=== PATIENT | female | born 1965 | race Two or more races ===

== ENCOUNTER 2016-11-30 19:42 | Inpatient (IN) | END 2016-12-06 16:20 | DRG 871 | DX: A41.9 Sepsis, unspecified organism (principal); J18.9 Pneumonia, unspecified organism; J96.01 Acute respiratory failure with hypoxia; I10 Essential (primary) hypertension; E11.9 Type 2 diabetes mellitus without complications; D50.9 Iron deficiency anemia, unspecified; I25.10 Atherosclerotic heart disease of native coronary artery without angina pectoris; F41.9 Anxiety disorder, unspecified; E87.5 Hyperkalemia; I50.9 Heart failure, unspecified; Z79.4 Long term (current) use of insulin ==

== ENCOUNTER 2016-12-09 11:16 | Inpatient (IN) | payer OTHER, MEDICAID ==
[~2016-12-09] VITALS: Ht 142.2 cm; Wt 90.9 kg
[~2016-12-09 11:16] MED LIST: ACET-2047 PO; ALBU2.5V3 NEB; ALPR0.254 PO; AMLO-147 PO; ASCO500C7 PO; ASPI81TA3 PO; BUDE6HFA INHALATION; CARV25TA79 PO; CHLO473M7 MM; CHOL20002 PO; CYAN100080 PO; DULR PR; FER325 PO; FLEETPED PR; IPRA3AMP INHALATION; LACTINEX PO; LANT3I SC; LOV40I SC; MONT10TA24 PO; MULT-105 PO; PANT40TA4 PO; POLY17PO6 PO; PROT946L PO; SENN-53 PO; TUBE5VIA3 ID; VALS80TA2 PO
--- NOTE | 2016-12-09 11:41 | RADRPT ---
PROCEDURE: CT brain without contrast CLINICAL INDICATION: Code stroke, altered mental status, aphasia, right gaze preference TECHNIQUE: CT of the brain without contrast performed on a multidetector CT scanner, with multiplan ar reformats. One or more of the following dose reduction techniques were used: Automated exposure control, adjustment in mA and / or kV according to patient size, use of iterative reconstructive anjel hnique. CTDIvol = 45 mGy; DLP = 720 mGy-cm. COMPARISON: None available FINDINGS: No acute intracranial hemorrhage is identified. No extra-axial fluid collection is seen. There is no mass effect. No midline shift is identified. Ventricles and sulci are within normal limits for size and configuration. There is mild patchy hypodensity in the bilateral parietal deep - subcortical white matter. No larg e territorial infarct is identified. Rader-white differentiation is otherwise grossly preserved. Th ere is a small focal calcification in the parasagittal left parietal lobe measuring up to 7 mm. Atherosclerotic calcifications of the proximal intracranial arteries are noted. Osseous structures are unremarkable. Mastoid air cells and imaged paranasal sinuses grossly clear. IMPRESSION: 1. No acute intracranial hemorrhage, or large territorial infarct. 2. Mild patchy hypodensity in the bilateral parietal white matter. Posterior reversible encephalop athy may have this appearance. Follow up with MRI is advised. 3. Small cerebral calcification which may be post infectious - inflammatory, sequela of neurocystic ercosis. Call report: Findings were called to Dr. Moore at 11:36 a.m. on 12/09/2016. RPTAT: VV .Kush Anand MD, Date Time Electronically viewed and signed by .Kush Anand MD, MD on 12/09/2016 11:40 .O/
[2016-12-09 11:42] LABS: EOSINOPHILS % 0.1 % (0.0-7.0)
[2016-12-09 11:43] LABS: POTASSIUM 3.9 mmol/L (3.5-5.1)
[2016-12-09 11:44] LABS: INR 0.97; PROTIME 12.9 Sec (12.2-14.2)
[2016-12-09 11:45] LABS: CREATININE 0.61 mg/dl (0.44-1.00)
[2016-12-09 11:46] LABS: CALCIUM 9.8 mg/dl (8.4-10.2)
[2016-12-09 11:48] LABS: HEMOGLOBIN 13.6 g/dl (12.0-16.0); LYMPHOCYTES % 7.7 % (15.0-51.0); MEAN CORPUSCULAR HEMOGLOBIN 26.9 pg (29.0-33.0); MEAN CORPUSCULAR HGB CONC 32.4 g/dl (32.0-37.0); MEAN CORPUSCULAR VOLUME 83.1 fl (82.0-101.0); MEAN PLATELET VOLUME 11.2 fl (7.4-10.4); MONOCYTE # 0.5 10^3/ul (0.3-0.9); MONOCYTES % 3.9 % (0.0-11.0); NEUTROPHIL # 11.8 10^3/ul (1.6-7.5); NEUTROPHILS % 88.3 % (39.0-77.0); PLATELET COUNT 169 10^3/UL (140-440); RED BLOOD COUNT 5.05 10^6/ul (4.20-5.40); RED CELL DISTRIBUTION WIDTH 25.3 % (11.5-14.5); UNCORRECTED WBC 13.4 10^3/ul (4.8-10.8); WHITE BLOOD COUNT 13.4 10^3/ul (4.8-10.8)
[2016-12-09 11:50] LABS: CONDITION 1; LH ANALYZER COMMENTS 1; SUSPECT 1
[2016-12-09] MEDS ORDERED: ADV25050 INHALATION (11:51)
[2016-12-09] MEDS ORDERED: ACET650S9 PR (11:51)
[2016-12-09] MEDS ORDERED: SODIUM CHLORIDE 0.9% 1L BAG IV* STA (11:52)
[2016-12-09] MEDS ORDERED: AZTREONAM 1 GM/NS (PMX) 50 ML IVPB STA (11:52)
[2016-12-09] MEDS ORDERED: VANCOMYCIN 1 GM (PMX) 250 ML IVPB STA (11:52)
[2016-12-09] MEDS ORDERED: AZTR2VIA2 IJ (11:53)
[2016-12-09] MEDS ORDERED: IPRA3AMP INHALATION (11:55)
[2016-12-09] MEDS ORDERED: CLON-379 PO (11:55)
[2016-12-09 11:57] LABS: TROPONIN-I 0.015 ng/ml (0.00-0.12)
[2016-12-09] MEDS ORDERED: HYDR-3671 PO (11:57)
--- NOTE | 2016-12-09 11:57 | RADRPT ---
PROCEDURE: XR Chest. CLINICAL INDICATION: chest pain, CVA TECHNIQUE: Single frontal view of the chest was obtained COMPARISON: 12/05/2016 FINDINGS: The study is limited due to rotation and patient positioning. There is mild cardiomegaly. There ar e patchy bilateral upper lobe and lower lobe infiltrates. There is no evidence of pneumothorax. RPTAT: AA IMPRESSION: Limited study. Patchy bilateral upper lobe and lower lobe infiltrates, not significantly changed. .Juan Ramon Guerrero MD, MD Date Time Electronically viewed and signed by .Juan Ramon Guerrero MD, MD on 12/09/2016 11:57 .S/
[2016-12-09] MEDS ORDERED: MAGN400T27 PO (11:58)
[2016-12-09] MEDS ORDERED: NIT4 SL (11:58)
[2016-12-09] MEDS ORDERED: ASPIRIN 300 MG SUPP PR ONE (12:00)
[2016-12-09] MEDS ORDERED: ALTEPLASE 100 MG INJ IV* ONE (12:00)
[2016-12-09] MEDS ORDERED: ALTEPLASE (tPA) 1 MG/ML BOLUS SYG IV* ONE (12:00)
[2016-12-09] MEDS ORDERED: SOD CHLORIDE 0.9% 50 ML IV ONE (12:00)
[2016-12-09] MEDS ORDERED: NOVO3I SC (12:03)
[2016-12-09] MEDS ORDERED: INSULIN LISPRO 100 UNIT/ML VIAL SC STA (12:04)
[2016-12-09] MEDS ORDERED: PRED20TA PO ×3 (12:11→12:16)
[2016-12-09 12:13] LABS: AADO2 Arterial 65.2 mmHg (7.0-24.0); Allen Test ACCEPTAB; Arterial Base Excess 4.9 mmol/L (-3.0-3); Arterial COHb 0.6 % (0.0-3.0); Arterial Fraction of Oxyhgb 92.4 % (93.0-99.0); Arterial MetHb 0.2 % (0.0-1.5); Arterial Total Hemglobin 14.4 g/dl (12.0-18.0); MODE NASAL CANNULA
[2016-12-09] MEDS ORDERED: PRED10TA PO ×2 (12:14→12:16)
[2016-12-09] MEDS ORDERED: PRED5 PO (12:17)
[2016-12-09] MEDS ORDERED: ONDA4TAB8 PO (12:18)
[2016-12-09] MEDS ORDERED: VANC1VIA2 IV (12:20)
[2016-12-09] MEDS ORDERED: ACETAMINOPHEN 325 MG TAB PO PRN (12:30)
[2016-12-09] MEDS ORDERED: ONDANSETRON 4 MG INJ IV PRN ×2 (12:30→16:00)
[2016-12-09 12:40] LABS: LACTIC ACID 1.5 mmol/L (0.5-2.2)
[2016-12-09 12:42] LABS: AMMONIA < 9 umol/l (9-30)
--- NOTE | 2016-12-09 14:05 | STROKE ---
Date/Time of Note Date/Time of Note DATE: 12/09/16 TIME: 12:08 Patient Information General Patient location: emergency Arrival Date Age 51 Gender female Weight 90.91 kg est by 2 RNs Vital Signs Vital Signs Vital Signs Date Time Temp Pulse Resp B/P Pulse Ox O2 Delivery O2 Flow Rate FiO2 12/09/16 11:27 Nasal Cannula 2 12/09/16 11:16 98.9 82 18 107/69 99 Patient History Current Medications Allergies: Coded Allergies: Penicillins (Verified Allergy, Unknown, 12/09/16) atenolol (Verified Allergy, Unknown, 12/09/16) prochlorperazine (Verified Allergy, Unknown, 12/09/16) sulfamethoxazole (Verified Allergy, Unknown, 12/09/16) trimethoprim (Verified Allergy, Unknown, 12/09/16) Labs Hematology Labs Hematology Test 12/09/16 11:21 Basophils # 0.010^3/ul (0.0-0.1) Basophils % 0.0% (0.0-2.0) Blood Morphology Comment Eosinophils # 0.010^3/ul (0.0-0.5) Eosinophils % 0.1% (0.0-7.0) Hematocrit 42.0% (37.0-47.0) Hemoglobin 13.6g/dl (12.0-16.0) Lymphocytes # 1.010^3/ul (0.8-2.9) Lymphocytes % 7.7% (15.0-51.0) Mean Corpuscular Hemoglobin 26.9pg (29.0-33.0) Mean Corpuscular Hemoglobin Concent 32.4g/dl (32.0-37.0) Mean Corpuscular Volume 83.1fl (82.0-101.0) Mean Platelet Volume 11.2fl (7.4-10.4) Monocytes # 0.510^3/ul (0.3-0.9) Monocytes % 3.9% (0.0-11.0) Neutrophils # 11.810^3/ul (1.6-7.5) Neutrophils % 88.3% (39.0-77.0) Nucleated Red Blood Cells # 0.010^3/ul (0.0-0.0) Nucleated Red Blood Cells % 0.0/100WBC (0.0-0.0) Platelet Count 01310^3/UL (140-440) Red Blood Count 5.0510^6/ul (4.20-5.40) Red Cell Distribution Width 25.3% (11.5-14.5) White Blood Count 13.410^3/ul (4.8-10.8) Chemistry Labs Chemistry Test 12/09/16 11:21 Anion Gap 16 (8-16) Blood Urea Nitrogen 35mg/dl (7-20) Calcium Level 9.8mg/dl (8.4-10.2) Carbon Dioxide Level 33mmol/L (21-31) Chloride Level 95mmol/L (97-110) Creatinine 0.61mg/dl (0.44-1.00) Glucose Level 418mg/dl (70-220) Hemoglobin A1c 6.7% (0-5.9) Potassium Level 3.9mmol/L (3.5-5.1) Sodium Level 140mmol/L (135-144) Troponin I 0.015ng/ml (0.00-0.12) Coagulation Labs: Coagulation Test 12/09/16 11:21 INR International Normalized Ratio 0.97 Prothrombin Time 12.9Sec (12.2-14.2) Prothrombin Time Ratio 1.0 History & Physical Patient History Notes Pt Hx Reviewed History of Present Illness 51yo F who lives in a longterm, was observed to have sudden onset gaze deviation to the right with altered mental status. Patient was last normal at 10:30am Review of Systems All Other Systems: Reviewed and Negative NIH Stroke Scale NIH Stroke Scale 1A - Level of Conciousness: 1 - Not Alert but [id number] LOC Questions: 2 - Answers no questions2 - Best Gaze: 1 - Partial Gaze palsy3 - Visual: 0 - No visual loss4 - Facial Palsy: 0 - No visual loss5A - Motor Arm - Left: 2 - Some effort to [id number] - Motor Arm - Right: 2 - Some effort to [id number] - Motor Leg - Left: 4 - No [id number] - Motor Leg - Right: 4 - No movement7 - Limb Ataxia: 0 - Absent8 - Sensory: 0 - Normal9 - Best Language: 3 - Mute or global aphasiaDysarthria: 2 - [id number] - Extinction and inattentio: 0 - No abnormalityTotal Score: 16 Date/Time Recorded DATE: 12/09/16 TIME: 12:08 Submitted By Eduardo Damon t-PA Imaging Review Imaging Reviewed: Yes Date/Time Imaging Reviewed DATE: 12/09/16 TIME: 12:08 Imaging Findings No acute changes t-PA Administration Recommendation: No Weight 90.91 kg est by 2 RNs Recommedation submitted by Eduardo Damon Reason t-PA not Recommended Not stroke Recommendations Impression Diagnosis metabolic encephalopathy Recommendation 51yo F presents with acute onset altered mental status changes and right gaze deviation. Neurological exam is notable for right gaze preference at the beginning of the exam but eyes moving to the left by the end of the exam, equal and purposeful movement of bilateral upper extremities, no movement in bilateral lower extremities, and equal response to pain in bilateral upper extremities with no response to pain in bilateral lower extremities. I suspect patient has a metabolic encephalopathy vs seizure. I recommend workup to include MRI Brain with and without gadolinium, EEG, and metabolic/infectious workup. Diagnostic Labs: Lipid Proile Hgb A1C CMP CBC w/Diff Coags Urinaysis Therapy: Physical Therapy Speech Therapy Misc. Recommendations: Bedside Swallow Evaluation Pnumatic Compression Devices Stroke Education Smoking Education EDUARDO DAMON Dec 09, 2016 14:05
[2016-12-09 14:50] LABS: ADD UMIC YES; URINE BILIRUBIN (Dip) NEGATIVE (NEGATIVE); URINE BLOOD (Dip) TRACE (NEGATIVE); URINE KETONES (Dip) NEGATIVE (NEGATIVE); URINE LEUKOCYTE ESTERASE (Dip) NEGATIVE (NEGATIVE); URINE NITRITE (Dip) NEGATIVE (NEGATIVE); URINE TOTAL PROTEIN (Dip) 4+ (NEGATIVE); URINE UROBILINOGEN (Dip) 0.2 E.U./dL (0.1-1.0)
[2016-12-09 15:06] LABS: BARBITURATES Negative (NEGATIVE)
[2016-12-09 15:23] LABS: URINE COLOR YELLOW (YELLOW)
[2016-12-09 15:26] LABS: BACTERIA,URINE FEW; TRANSITIONAL EPI CELLS,URINE MODERATE
[2016-12-09 15:30] LABS: BENZODIAZEPINES Negative (NEGATIVE); CANNABINOIDS Negative (NEGATIVE); COCAINE Negative (NEGATIVE); OPIATES Negative (NEGATIVE)
[2016-12-09] MEDS ORDERED: ACETAMINOPHEN 650 MG SUPP PR PRN (16:00)
[2016-12-09] MEDS ORDERED: NACL 0.9% 3 ML SYG IV SCH (16:00)
[2016-12-09] MEDS ORDERED: ALBUTEROL/IPRATROPIUM (NEB) 3 ML AMP HHN PRN (16:00)
[2016-12-09] MEDS ORDERED: ALPRAZOLAM 0.25 MG TAB PO PRN (16:00)
[2016-12-09] MEDS ORDERED: morphine 2 MG INJ IV PRN (16:00)
[2016-12-09] MEDS ORDERED: BISACODYL 10 MG SUPP PR PRN (16:00)
[2016-12-09] MEDS ORDERED: ONDANSETRON 4 MG TAB PO PRN (16:00)
[2016-12-09] MEDS ORDERED: NITROGLYCERIN (SL) 0.4 MG TAB SL PRN (16:00)
[2016-12-09] MEDS ORDERED: NA PHOSPHATE/BIPHOS 66.6 ML ENEMA PR PRN (16:00)
[2016-12-09] MEDS ORDERED: VANCOMYCIN IV PER PHARMACY XX SCH (16:00)
--- NOTE | 2016-12-09 16:30 | ERA ---
ER Documentation Chief Complaint Date/Time DATE: 12/09/16 TIME: 16:24 Chief Complaint ALOC @ 1055, last known [id number] HPI Patient is a 51-year-old female with DVT, anemia, diabetes, and high blood pressure who presents with altered mental status. Please note the history and physical exam is limited as the patient is currently a phasic. The patient was a code stroke from the field at 11:14 AM. She was last seen normal at 10:30 AM and is usually awake alert and oriented 3. Her sugar was high by paramedics. She has a right-sided gaze preference. I cannot obtain a history otherwise. ROS All systems reviewed and are negative except as per history of present illness. Medications Home Meds Active Scripts Valsartan* (Diovan*) 80 Mg Tablet, 40 MG PO BID for 30 Days, TAB HOLD IF SBP<110 OR HR<60 Prov:LEXY HOOKER MD 12/06/16 Insulin Glargine* (Lantus*) 100 Unit/Ml Soln, 15 UNIT SC QHS, #1 VIAL Prov:LEXY HOOKER MD 12/06/16 Carvedilol* (Carvedilol*) 25 Mg Tablet, 12.5 MG PO BID, #60 TAB HOLD IF SBP<110 OR HR<60 Prov:LEXY HOOKER MD 12/06/16 Reported Medications Vancomycin HCl (Vancomycin HCl) 1 Gm Vial, 1 GM IV EVERY 48 HOURS, VIAL STOP 12-13-16 12/09/16 Ondansetron Hcl* (Zofran*) 4 Mg Tablet, 4 MG PO Q6H Y for NAUSEA AND OR VOMITING , TAB 12/09/16 Prednisone* (Prednisone*) 5 Mg Tab, 5 MG PO DAILY, TAB START 12-27-16 STOP 12-30-16 12/09/16 Prednisone* (Prednisone*) 20 Mg Tab, 20 MG PO DAILY, TAB START 12-21 STOP 12-23-16 12/09/16 Prednisone* (Prednisone*) 10 Mg Tab, 10 MG PO DAILY, TAB START 12-24-16 STOP 01-02-17 12/09/16 Prednisone* (Prednisone*) 20 Mg Tab, 40 MG PO DAILY, TAB START 12-13-16 STOP 12-18-16 12/09/16 Prednisone* (Prednisone*) 10 Mg Tab, 30 MG PO DAILY, TAB START 12-18-16 STOP 12-21-16 12/09/16 Prednisone* (Prednisone*) 20 Mg Tab, 40 MG PO BID, TAB STARTED 12-06-16 FOR 5 DAYS 12-12-16 12/09/16 Insulin Aspart* (Novolog Insulin Pen*) 100 Unit/Ml Soln, 0 SC WITH BREAKFAST, EA 151-200 = 2 UNITS 201-250 = 4 UNITS 251-300 = 6 UNITS 301-350 = 8 UNITS 351-400 =10 UNITS ABOVE 400 GIVE 12 UNITS AND CALL MD TO BE GIVEN WITH MEALS AND BEDTIME 12/09/16 Nitroglycerin* (Nitrostat*) 0.4 Mg Tab.subl, 0.4 MG SL Q5MIN Y for CHEST PAIN, BOTTLE 12/09/16 Magnesium Oxide* (Mag-Oxide*) 400 Mg Tablet, 400 MG PO BID, TAB FOR 7 DAYS STOP 12-15-16 12/09/16 Hydralazine Hcl* (Hydralazine Hcl*) 25 Mg Tab, 25 MG PO Q8 Y for ELEVATED BLOOD PRESSURE, #90 TAB GIVE 25MG IF SBP BELOW 120 12/09/16 Ipratropium-Albuterol (Ipratropium-Albuterol) 0.5-3 Mg/3 Ml Ampul.neb, 3 ML INHALATION Q6 Y for WHEEZING AND SOB, #30 VIAL 12/09/16 Clonidine Hcl* (Clonidine Hcl*) 0.1 Mg Tab, 0.1 MG PO Q8 Y for ELEVATED BLOOD PRESSURE, TAB SBP ABOVE 160 12/09/16 Aztreonam (AZTREONAM) 2 Gm Vial, 2 GM IJ Q12 Y for PNA, VIAL STARTED 12-06-16 STOP 12-13-16 12/09/16 Salmeterol Xinaf/Fluticasone* (Advair*) 250-50 Diskus Inhaler, 1 INH INHALATION BID, #1 INHALER 12/09/16 Acetaminophen* (Acephen*) 650 Mg Supp.rect, 650 MG MD Q4H Y for PAIN AND OR ELEVATED TEMP, SUPP.RECT 12/09/16 Ascorbic Acid* (Vitamin C*) 500 Mg Capsule.sa, 500 MG PO DAILY, CAP 11/30/16 Sennosides* (Senna Lax*) 8.6 Mg Tablet, 2 TAB PO QHS, TAB 11/30/16 Pantoprazole* (Pantoprazole*) 40 Mg Tablet.dr, 40 MG PO AC BREAKFAST, TAB 11/30/16 Protein Supplement (Promod) 946 Ml Liquid, 30 ML PO BID 11/30/16 Multivitamin with Minerals (Multivitamins with Minerals) 1 Each Tablet, 1 EACH PO DAILY, TAB 11/30/16 Montelukast Sodium* (Montelukast Sodium*) 10 Mg Tablet, 10 MG PO DAILY, #30 TAB 11/30/16 Polyethylene Glycol* (Miralax*) 17 Gm Powd.pack, 17 GM PO DAILY, #30 PACKET 11/30/16 Sod Phosphate/Sod Biphosphate* (Fleet* Enema Pediatric) 66.6 Ml Soln, 66.6 ML MD Q72H Y for CONSTIPATION, ENEMA 11/30/16 Ferrous Sulfate* (Ferrous Sulfate*) 325 Mg Tabec, 325 MG PO BID, TAB 11/30/16 Enoxaparin Sodium* (Enoxaparin Sodium*) 40 Mg/0.4 Ml Syringe, 40 MG SC DAILY, SYR 11/30/16 Ipratropium-Albuterol (Ipratropium-Albuterol) 0.5-3 Mg/3 Ml Ampul.neb, 3 ML INHALATION Q2H, #30 VIAL Q2H FOR WHEEZING AND Q4H FOR SOB 11/30/16 Bisacodyl* (Bisacodyl*) 10 Mg Supp, 10 MG MD Q48H Y for PRN, SUPP 11/30/16 Cyanocobalamin* (Vitamin B-12*) 1,000 Mcg Tablet.sa, 1000 MCG PO DAILY, TAB 11/30/16 Aspirin* (Aspirin* Chew) 81 Mg Tab.chew, 81 MG PO DAILY, TAB.CHEW 11/30/16 Amlodipine Besylate* (Amlodipine Besylate*) 10 Mg Tablet, 10 MG PO DAILY, #30 TAB HOLD IF SBP<110 OR HR<60 11/30/16 Alprazolam* (Alprazolam*) 0.25 Mg Tablet, 0.25 MG PO TID Y for ANXIETY, TAB 11/30/16 Discontinued Reported Medications Tuberculin,Purif.prot.deriv. (Tubersol) 5 Tub Unit/0.1 Ml Vial, 5 TUB ID QHS, VIAL 11/30/16 Budesonide-Formoterol Fumarate* (Symbicort*) 160-4.5 Hfa.aer.ad, 2 PUFF INHALATION BID, #1 EACH 11/30/16 Lactobacillus Acidophilus* (Lactinex*) 1 Tab Chew, 1 TAB PO TID, TAB 11/30/16 Cholecalciferol (Vitamin D3) (Vitamin D-3) 2,000 Unit Tablet, 2000 UNIT PO DAILY , TAB 11/30/16 Chlorhexidine Gluconate (Paroex) 473 Ml Mouthwash, 15 ML MM BID, BOTTLE 11/30/16 Albuterol Sulfate* (Albuterol Sulfate* Neb) 0.083%-3 Ml Neb, 1.25 MG NEB Q4H Y for WHEEZING AND SOB, #30 VIAL 11/30/16 Acetaminophen* (Acetaminophen*) 650 Mg Tablet, 650 MG PO Q6H Y for PAIN LEVEL 1- 10, #30 TAB 11/30/16 Insulin Human Regular (Novolin-R U-100) 100 Unit/Ml Soln, 0 SC SLIDING SCALE AC , EA 151-200=2UNIT, <70=ORANGE JUICE OR 1MG IM GLUCAGON AND CALL MD; 201-250=4UNITS, 251-300=6UNITS, 301-350=8UNITS, 351-400=10UNITS,>400=12UNITS AND CALL MD 11/30/16 Hydralazine Hcl* (Hydralazine Hcl*) 50 Mg Tab, 50 MG PO BID, #60 TAB HOLD IF SBP<110 OR HR<60 11/30/16 Allergies Allergies: Coded Allergies: Penicillins (Verified Allergy, Unknown, 12/09/16) atenolol (Verified Allergy, Unknown, 12/09/16) prochlorperazine (Verified Allergy, Unknown, 12/09/16) sulfamethoxazole (Verified Allergy, Unknown, 12/09/16) trimethoprim (Verified Allergy, Unknown, 12/09/16) PMhx/Soc Medical and Surgical Hx: Unable to obtain History of Surgery: Yes Anesthesia Reaction: No Hx Neurological Disorder: No Hx Respiratory Disorders: No Hx Cardiac Disorders: Yes Hx Psychiatric Problems: No Hx Miscellaneous Medical Probl: No Hx Alcohol Use: No Hx Substance Use: No Hx Tobacco Use: No Smoking Status: Unknown if ever smoked FmHx Unable to obtain Physical Exam Vitals Vital Signs Date Time Temp Pulse Resp B/P Pulse Ox O2 Delivery O2 Flow Rate FiO2 12/09/16 14:49 71 100 30 12/09/16 14:26 70 20 155/105 98 BIPAP 12/09/16 14:03 98.9 94 16 168/84 99 BIPAP 12/09/16 12:33 86 98 30 12/09/16 11:27 Nasal Cannula 2 12/09/16 11:16 98.9 82 18 107/69 99 Physical Exam Const: Altered Head: Atraumatic Eyes: Right-sided gaze preference ENT: Normal External Ears, Nose and Mouth. Neck: Full range of motion..~ No meningismus. Resp: Decreased breath sounds bilaterally Cardio: Regular rate and rhythm, no murmurs Abd: Soft, non tender, non distended. Normal bowel sounds Skin: Pale Back: Scoliosis Ext: Paralysis of the lower extremities Neur: Awake but right-sided gaze preference, aphasia, withdrawing to pain of the bilateral upper extremities, bilateral lower extremity paralysis Result Diagram: 12/09/16 1121 12/09/16 1121 Results 24 hrs Laboratory Tests Test 12/09/16 11:21 12/09/16 11:52 12/09/16 14:25 12/09/16 14:35 Anion Gap 16 Basophils # 0.010^3/ul Basophils % 0.0% Blood Morphology Comment Blood Urea Nitrogen 35mg/dl Calcium Level 9.8mg/dl Carbon Dioxide Level 33mmol/L Chloride Level 95mmol/L Creatinine 0.61mg/dl Eosinophils # 0.010^3/ul Eosinophils % 0.1% Glucose Level 418mg/dl Hematocrit 42.0% Hemoglobin 13.6g/dl Hemoglobin A1c 6.7% Lymphocytes # 1.010^3/ul Lymphocytes % 7.7% Mean Corpuscular Hemoglobin 26.9pg Mean Corpuscular Hemoglobin Concent 32.4g/dl Mean Corpuscular Volume 83.1fl Mean Platelet Volume 11.2fl Monocytes # 0.510^3/ul Monocytes % 3.9% Neutrophils # 11.810^3/ul Neutrophils % 88.3% Nucleated Red Blood Cells # 0.010^3/ul Nucleated Red Blood Cells % 0.0/100WBC Platelet Count 24742^3/UL Potassium Level 3.9mmol/L Red Blood Count 5.0510^6/ul Red Cell Distribution Width 25.3% Sodium Level 140mmol/L Troponin I 0.015ng/ml White Blood Count 13.410^3/ul Arterial Blood HCO3 33.0mmol/L Arterial Blood Base Excess 4.9mmol/L Arterial Blood Oxygen Saturation 93.1mmHG Kulwant Test ACCEPTAB Arterial Blood Gas Puncture Site Left Radial Ammonia < 9umol/l Arterial Blood Carboxyhemoglobin 0.6% Arterial Blood Date Drawn 12/09/2016 12:05:27 PM Arterial Blood Methemoglobin 0.2% Arterial Blood pCO2 (Temp correct) 64.1mmhg Arterial Blood pH (Temp corrected) 7.329 Arterial Blood pO2 (Temp corrected) 73.4mmHG Blood Gas A-a O2 Differential 65.2mmHg Blood Gas Modality NASAL CANNULA Blood Gas Notified Time 12/09/2016 12:13:11 PM Blood Gas Notified Whom AbimaelGEODETIC SURVEYOR Blood Gas Specimen Source Blood arterial Blood Gas Temperature 37.0C FiO2 30.0% Lactic Acid Level 1.5mmol/L Oxyhemoglobin Percent 92.4% Total Hemoglobin 14.4g/dl Urine Amorphous Urates MODERATE Urine Amphetamines Screen Negative Urine Bacteria FEW Urine Barbiturates Negative Urine Benzodiazepines Screen Negative Urine Bilirubin NEGATIVE Urine Cannabinoids Negative Urine Clarity SLIGHTLY CLOUDY Urine Cocaine Screen Negative Urine Color YELLOW Urine Glucose 0.5%% Urine Hemoglobin TRACE Urine Ketones NEGATIVE Urine Leukocyte Esterase NEGATIVE Urine Microscopic RBC 5-10/HPF Urine Microscopic WBC 10-25/HPF Urine Nitrite NEGATIVE Urine Opiates Screen Negative Urine Specific Omro 1.020 Urine Total Protein 4+ Urine Transitional Epithelial Cells MODERATE Urine Urobilinogen 0.2 E.U./dL Urine pH 6.0 Bedside Glucose 130mg/dL Test 12/09/16 15:21 Activated Partial Thromboplast Time 20.0Sec INR International Normalized Ratio 0.97 Prothrombin Time 12.9Sec Prothrombin Time Ratio 1.0 Current Medications Medications (Trade) Dose Ordered Sig/Marge Route PRN Reason Start Time Stop Time Status Last Admin Dose Admin Alteplase, Recombinant (Activase) 8.2 mg BOLUS OVER 1 MIN ONCE IV* 12/09/16 12:00 12/09/16 12:00 DC Alteplase, Recombinant 73.6 mg 73.6 mg ISCHEMIC STROKE ONCE IV* 12/09/16 12:00 12/09/16 12:00 DC Sodium Chloride (NS) 50 ml @ 0 mls/hr FLUSH AFTER TPA ONCE IV 12/09/16 12:00 12/09/16 12:01 DC Aspirin (Aspirin) 300 mg ONCE ONCE MD 12/09/16 12:00 12/09/16 12:01 DC 12/09/16 12:17 Sodium Chloride 2820 ml 2,820 ml BOLUS OVER 2 HOURS STAT IV* 12/09/16 11:52 12/09/16 11:55 DC 12/09/16 12:10 Aztreonam 50 ml @ 100 mls/hr ONCE STAT IVPB 12/09/16 11:52 12/09/16 12:21 DC 12/09/16 12:22 Vancomycin HCl (Vancocin) 250 ml @ 125 mls/hr ONCE STAT IVPB 12/09/16 11:52 12/09/16 13:51 DC 12/09/16 13:38 Insulin Human Lispro (Humalog) 10 unit ONCE STAT SC 12/09/16 12:04 12/09/16 12:05 DC 12/09/16 12:17 Ondansetron HCl (Zofran Inj) 4 mg ER BRIDGE PRN IV NAUSEA AND/OR VOMITING 12/09/16 12:30 12/10/16 12:29 Acetaminophen 650 mg 650 mg ER BRIDGE PRN PO MILD PAIN/FEVER 12/09/16 12:30 12/10/16 12:29 Sodium Chloride (1/2 NS) 1,000 ml @ 20 mls/hr Q24H IV 12/09/16 15:56 IV Flush (NS 3 ml) 3 ml PER PROTOCOL IV 12/09/16 16:00 Ondansetron HCl (Zofran Inj) 4 mg Q6H PRN IV NAUSEA AND/OR VOMITING 12/09/16 16:00 Morphine Sulfate (morphine) 2 mg Q4H PRN IV SEVERE PAIN LEVEL 7-10 12/09/16 16:00 Enoxaparin Sodium (Lovenox) 40 mg DAILY SC 12/10/16 09:00 Vancomycin HCl VANCOMYCIN PER PHARMACY PER PROTOCOL XX 12/09/16 16:00 UNV Piperacillin Sod/ Tazobactam Sod (Zosyn 3.375gm/ 100 ml (Pmx)) 100 ml @ 200 mls/hr Q8 IVPB 12/09/16 22:00 Acetaminophen (Tylenol Supp) 650 mg Q4H PRN MD PAIN AND OR ELEVATED TEMP 12/09/16 16:00 Alprazolam (Xanax) 0.25 mg TID PRN PO ANXIETY 12/09/16 16:00 Amlodipine Besylate (Norvasc) 10 mg DAILY PO 12/10/16 09:00 UNV Ascorbic Acid (Vitamin C) 500 mg DAILY PO 12/10/16 09:00 UNV Aspirin (Aspirin) 81 mg DAILY PO 12/10/16 09:00 Bisacodyl (Dulcolax Supp) 10 mg Q48H PRN MD PRN 12/09/16 16:00 Carvedilol (Coreg) 12.5 mg BID PO 12/09/16 21:00 UNV Clonidine (Catapres) 0.1 mg Q8 PRN PO ELEVATED BLOOD PRESSURE 12/09/16 16:00 Cyanocobalamin (Vitamin B12) 1,000 mcg DAILY PO 12/10/16 09:00 UNV Enoxaparin Sodium (Lovenox) 40 mg DAILY SC 12/10/16 09:00 Ferrous Sulfate (Ferrous Sulfate (Ec)) 325 mg BID PO 12/09/16 21:00 UNV Hydralazine HCl (Apresoline) 25 mg Q8 PRN PO ELEVATED BLOOD PRESSURE 12/09/16 16:00 UNV Insulin Glargine (Lantus) 15 unit QHS SC 12/09/16 21:00 UNV Magnesium Oxide (Mag-Ox 400) 400 mg BID PO 12/09/16 21:00 UNV Montelukast Sodium (Singulair) 10 mg DAILY PO 12/10/16 09:00 UNV Nitroglycerin (Nitroglycerin (Sl Tab) 0.4 Mg) 1 tab [id number] PRN SL CHEST PAIN 12/09/16 16:00 Ondansetron HCl (Zofran Tab) 4 mg Q6H PRN PO NAUSEA AND/OR VOMITING 12/09/16 16:00 Pantoprazole (Protonix Tab) 40 mg AC BREAKFAST PO 12/10/16 07:00 UNV Polyethylene Glycol (Miralax) 17 gm DAILY PO 12/10/16 09:00 UNV Prednisone (Prednisone) 5 mg DAILY PO 12/10/16 09:00 UNV Salmeterol Xinafoate/ Fluticasone (Advair 250/50 Diskus) 1 inh BID INH 12/09/16 21:00 UNV Senna (Senokot) 2 tab QHS PO 12/09/16 21:00 UNV Sodium Biphosphate/ Sodium Phosphate (Fleet Enema Pediatric) 66.6 ml Q72H PRN MD CONSTIPATION 12/09/16 16:00 Valsartan (Diovan) 40 mg BID PO 12/09/16 21:00 UNV Miscellaneous Information 1 each DAILY PO 12/10/16 09:00 UNV Miscellaneous Information 30 ml BID PO 12/09/16 21:00 UNV Albuterol/ Ipratropium (Duoneb) 3 ml Q4H RESP THERAPY PRN HHN SHORTNESS OF BREATH 12/09/16 16:00 Insulin Aspart (Novolog Insulin Pen) NOVOLOG *MILD* ALGORI... Q4 SC 12/09/16 17:00 UNV Miscellaneous Information (* Miscellaneous Pharmacy Order) HYPOGLYCEMIA PROTOCOL w... ONCE ONCE XX 12/09/16 16:00 12/09/16 16:01 UNV Miscellaneous Information (* Miscellaneous Pharmacy Order) Discontinue Glyburide, Glipizide,... ONCE ONCE XX 12/09/16 16:00 12/09/16 16:01 UNV Miscellaneous Information (* Miscellaneous Pharmacy Order) Discontinue all previ... ONCE ONCE XX 12/09/16 16:00 12/09/16 16:01 UNV Procedures/MDM CT head negative for acute stroke per radiology. EKG read by me: Rate/Rhythm: Regular rate and rhythm at a rate of 81 Intervals: Normal Impression: No evidence of ischemia or arrhythmia Chest X-ray 1V Interpreted by me: Soft Tissue: No acute abnormalities Bones: Scoliosis Mediastinum/Cardiac Silhouette/Lungs: Bilateral pneumonia Admit MDM: Patient's infectious symptoms have not stabilized and the patient is at risk of rapid decompensation. The patient will be admitted for careful hydration, antibiotic therapy, and infectious source control. Severe Sepsis criteria: Infectious source: Pneumonia End organ damage indicated by: Respiratory failure Sepsis Management: Time of recognition of sepsis: 11:57 Within 3 hours of recognition: Blood cultures x 2 before broad-spectrum antibiotics: Yes 30 ml/kg NS bolus Completed Initial lactate 1.5 Repeat lactate pending Time of recognition of septic shock: No septic shock Septic Shock Assessment: Any lactic acid > 4.0 No Persistent hypotension (SBP < 90 or 40 mmHg drop, MAP < 65) despite 30 mL/kg IV fluid bolus No Volume Re-assessment for Septic Shock (post 30 ml/kg bolus): No septic shock at this time Persistent Hypotension Treatment: Comfort care No Central line Not Required Vasopressor started Not required I considered further perfusion assessment with CVP measurement, SCVO2, bedside ultrasound volume assessment, passive leg raise, trial of further fluid bolus. And proceeded with 30 ml/kg fluid bolus of NSS, broad spectrum antibiotics, and admission. The patient was initially a potential stroke and TPA candidate. The tele-neurologist did a stroke evaluation and felt this may have been seizure as she is now moving and no longer has the persistent right-sided gaze preference. The patient failed a swallow evaluation and had an NIH stroke scale of 22. The patient was given aspirin per rectum. Now I am concerned about sepsis given the pneumonia on x-ray. Accepting Care Team Current data and ongoing care discussed. Admitting Physician: Dr. Cabrera from the panel team as the patient was recently admitted to the panel team and has [employer] Health insurance adviser(s): Tele-neurology Outstanding Data: Culture results and repeat lactic acid Critical Care: Critical care time 35 minutes excluding all billable procedures Emergent fluid management while maintaining close respiratory support. Provision of immediate and broad-spectrum antibiotic therapy. Simultaneous assessment for possible sources in order to direct targeted therapy. Consideration for invasive and chemical support to prevent cardiopulmonary collapse. Departure Diagnosis: Primary Impression: Severe sepsis Additional Impressions: PNA (pneumonia) Qualified Code: J18.9 - Pneumonia of both lungs due to infectious organism, unspecified part of lung Altered level of consciousness Leukocytosis Qualified Code: D72.829 - Leukocytosis, unspecified type Hyperglycemia Condition: Serious ROSSY SOUSA MD Dec 09, 2016 16:30
[2016-12-09] MEDS: INSULIN ASPART [NOVOLOG] 3 ML PEN SC SCH ×2 (17:00→21:27)
[2016-12-09] MEDS ORDERED: GLUCOSE GEL 15 GRAM TUBE PO PRN ×2 (17:30)
[2016-12-09] MEDS ORDERED: GLUCAGON 1 MG INJ IM PRN (17:30)
[2016-12-09] MEDS ORDERED: GLUCOSE GEL 15 GRAM TUBE BUCCAL PRN (17:30)
[2016-12-09] MEDS ORDERED: DEXTROSE 50% 50 ML SYRINGE IV PRN ×2 (17:30)
--- NOTE | 2016-12-09 18:35 | HP ---
DATE OF ADMISSION: 12/09/2016 CHIEF COMPLAINT: Altered mental status. HISTORY OF PRESENT ILLNESS: The patient is a 51-year-old female with a history of spina bifida with debility who resides with at [facility]. The patient has history of hypertension, asthma and pulmonary fibrosis as well as sepsis and coronary artery disease. Patient was recently hospitalized here several days ago. During that hospitalization, patient presented with acute respiratory failu re, was intubated. Patient also had sepsis from pneumonia. She was diagnosed with pulmonary fibros is. Patient now presents with altered mental status. It is unclear if patient had a stroke versus seizure. The patient was evaluated by teleneurology in the ED and during the evaluation, the patireece t's mentation did improve was felt that she is not a candidate for TPA as it is felt that patient di d not have a stroke. There is a question of whether or not patient had a seizure, but there are no reports of any witnessed seizures at the long term. The patient is now alert. She is somewhat o f a poor historian but she states that she feels as though she is back to her baseline. She has no complaints of any weakness at this time and denies any chest pain, shortness of breath, nausea, vomi ting. She states that she just felt somewhat confused earlier and is not clear why and does not rem ember much from early this morning. PAST MEDICAL HISTORY: 1. Debility secondary to report of spina bifida. The patient has been mostly bedbound for many yea rs now resides in a longterm facility. 2. Pulmonary fibrosis with a recent history of respiratory failure likely from pulmonary fibrosis a nd pneumonia. 3. Iron deficiency anemia. 4. Coronary artery disease. 5. Diabetes type 2. 6. Anxiety. HOME MEDICATIONS: 1. Tylenol. 2. Xanax. 3. Norvasc. 4. Vitamin C. 5. Aspirin. 6. Aztreonam. 7. Dulcolax. 8. Coreg. 9. Clonidine. 10. Vitamin B12 and Lovenox. 11. Ferrous sulfate. 12. Hydralazine. 13. Insulin. 14. DuoNeb. 15. Magnesium. 16. Protonix. 15. Prednisone. 16. Diovan. ALLERGIES: PENICILLINS, ATENOLOL, BACTRIM. FAMILY HISTORY: Noncontributory. SOCIAL HISTORY: Patient resides at longterm facility. No reports of any alcohol, tobacco, d rug use. REVIEW OF SYSTEMS: A 12-point review of systems negative except that discussed in HPI. PHYSICAL EXAMINATION: VITAL SIGNS: Temperature is 98.9, pulse 71, respiratory rate 20, blood pressure 165/105, oxygen sat uration 100% on BiPAP. GENERAL: No acute distress, alert. HEENT: Normocephalic, atraumatic. LUNGS: Clear to auscultation. CARDIOVASCULAR: Regular rate and rhythm. ABDOMEN: Nondistended, nontender, soft. EXTREMITIES: No clubbing, cyanosis, or edema. LABORATORIES: White count 15.4, hemoglobin 13.6, platelets 169. Chemistry within normal limits exc ept for chloride of 95, carbon dioxide 33, BUN 35, glucose 418. A1c is 6.7. INR is 0.97. U-tox is negative. UA shows only 0.5% glucose and 4+ total protein. DIAGNOSTICS: Chest x-ray shows patchy bilateral upper lobe and lower lobe infiltrates not significa ntly changed. Brain CT shows no acute hemorrhage or large infarct and mild patchy hyperdensity in t he bilateral parietal white matter, posterior reversible encephalopathy may have this appearance. 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 ASSESSMENT AND PLAN: 1. Acute encephalopathy now resolved. The patient has been evaluated by teleneurology and it is fe lt that the patient did have cerebrovascular accident and hence is not a candidate for tissue plasm inogen activator. 2. Per neurology, the patient has metabolic encephalopathy versus seizure. Recommendations for MRI brain, EEG, an infectious workup which will be done. 3. Chronic respiratory failure secondary to pulmonary fibrosis, recent acute exacerbation of pneumo oseas. Patient's x-ray continues to show findings of pneumonia. Unclear if this is a residual findin g from previous infection versus persistent infection. We will cover with IV antibiotics. 4. Hypertension. Continue home medication. 5. Coronary artery disease. Continue home medication. 6. Diabetes. Continue home insulin. 7. History of debility secondary to spina bifida. The patient has been bedbound for many years. 8. Prophylaxis, Lovenox. Dictated By: KYLE GROVER MD BS/NTS Conf#: [id number] DID#: [id number]
[2016-12-09 18:53] VITALS: TEMP 99.2
[2016-12-09 20:00] VITALS: BP 156/73; PULSE 72; RESP 20
[2016-12-09 20:07] VITALS: PULSE 78
[2016-12-09] MEDS ORDERED: INSULIN GLARGINE [LANtus] 3 ML PEN SC SCH (21:00)
[2016-12-09] MEDS ORDERED: NON-FORMULARY/PATIENT OWN MED (Protein Supplement (Promod) 30 ML) PO SCH (21:00)
[2016-12-09] MEDS: SALMETEROL/FLUTICASONE 250/50 INHA INH SCH (21:20)
[2016-12-09] MEDS: SENNA TAB PO SCH (21:21)
[2016-12-09] MEDS: FERROUS SULFATE (EC) 325 MG TAB PO SCH (21:21)
[2016-12-09] MEDS: VALSARTAN 80 MG TAB PO SCH (21:22)
[2016-12-09] MEDS: MAGNESIUM OXIDE 400 MG TAB PO SCH (21:41)
[2016-12-09] MEDS: SOD CHLORIDE 0.45% 1,000 ML IV SCH (21:42)
[2016-12-09] MEDS ORDERED: PIPER-TAZO 3.375 GM IV (PMX) 100 ML IVPB SCH (22:00)
[2016-12-09 22:14] VITALS: BP 156/73; RESP 20
--- NOTE | 2016-12-09 22:19 | CONS ---
Date/Time of Note Date/Time of Note DATE: 12/09/16 TIME: 22:10 Assessment/Plan Assessment/Plan Chief Complaint/Hosp Course I reviewed Pt's records and made preliminary recommendations on EMR. I will formally evaluate Pt and write a full consultation note. assessment/impression - recurrent HCAP - underlying pulmonary fibrosis - MS change on admission, etiology either CVA or seizure - spina bifida - DM - CAD - reported allergy to PCN and sulfa recommendations - I will review the results of blood cultures - will request: respiratory culture, influenza screen by EIA and PCR, respiratory virus test by PCR, procalcitonin, cocci serology, legionella antigen , mycoplasma serology - continue IV vancomycin and aztreonam. Will add levofloxacin empirically too I reviewed Pt's records and made preliminary recommendations on EMR. I will formally evaluate Pt and write a full consultation note. Problems: Consultation Date/Type/Reason Admit Date/Time Dec 09, 2016 at 12:26 Date of Consultation: Dec 09, 2016 Type of Consultation: ID Reason for Consultation PNA Referring Provider: ROSSY SOUSA MD Hx of Present Illness This is a 51 yo female SNF resident with h/o spina bifida, DM, asthma and pulmonary fibrosis. Pt was admitted until recently due to hypoxic respiratory failure requiring intubation. Pt was sent to [facility] several days ago. Pt was readmitted today due to MS change. Tele-neurology assessed Pt. her mental status improved gradually. The etiology of her MS change was either seizure or CVA. Pt was noted to have leukocytosis and b/l ground glass opacity on CXR. MEGAN Sanders at [facility] who cares for this Pt contacted Dr. Sousa at ER and requested ID consult by us. I reviewed Pt's records and made preliminary recommendations on EMR. I will formally evaluate Pt and write a full consultation note. Past Surgical History Past Surgical Hx: no surgical history Social History Smoking Status: Unknown if ever smoked Exam/Review of Systems Vital Signs Vitals Vital Signs Date Time Temp Pulse Resp B/P Pulse Ox O2 Delivery O2 Flow Rate FiO2 12/09/16 20:07 78 12/09/16 18:53 99.2 24 157/86 99 Nasal Cannula 12/09/16 17:20 4.0 12/09/16 16:34 30 Results Result Diagram: 12/09/16 1121 12/09/16 1121 Results 24 hrs Laboratory Tests Test 12/09/16 11:21 12/09/16 11:52 12/09/16 14:25 12/09/16 14:35 Anion Gap 16 Basophils # 0.0 Basophils % 0.0 Blood Morphology Comment Blood Urea Nitrogen 35 H Calcium Level 9.8 Carbon Dioxide Level 33 H Chloride Level 95 L Creatinine 0.61 Eosinophils # 0.0 Eosinophils % 0.1 Glucose Level 418 *H Hematocrit 42.0 # Hemoglobin 13.6 # Hemoglobin A1c 6.7 H Lymphocytes # 1.0 Lymphocytes % 7.7 L Mean Corpuscular Hemoglobin 26.9 L Mean Corpuscular Hemoglobin Concent 32.4 Mean Corpuscular Volume 83.1 Mean Platelet Volume 11.2 H Monocytes # 0.5 Monocytes % 3.9 Neutrophils # 11.8 H Neutrophils % 88.3 H Nucleated Red Blood Cells # 0.0 Nucleated Red Blood Cells % 0.0 Platelet Count 169 # Potassium Level 3.9 Red Blood Count 5.05 # Red Cell Distribution Width 25.3 H Sodium Level 140 Troponin I 0.015 White Blood Count 13.4 #H Arterial Blood HCO3 33.0 H Arterial Blood Base Excess 4.9 H Arterial Blood Oxygen Saturation 93.1 L Kulwant Test ACCEPTAB Arterial Blood Gas Puncture Site Left Radial Ammonia < 9 L Arterial Blood Carboxyhemoglobin 0.6 Arterial Blood Date Drawn 12/09/2016 12:05:27 PM Arterial Blood Methemoglobin 0.2 Arterial Blood pCO2 (Temp correct) 64.1 H Arterial Blood pH (Temp corrected) 7.329 L Arterial Blood pO2 (Temp corrected) 73.4 L Blood Gas A-a O2 Differential 65.2 H Blood Gas Modality NASAL CANNULA Blood Gas Notified Time 12/09/2016 12:13:11 PM Blood Gas Notified Whom AbimaelDESKTOP ENGINEER Blood Gas Specimen Source Blood arterial Blood Gas Temperature 37.0 FiO2 30.0 Lactic Acid Level 1.5 Oxyhemoglobin Percent 92.4 L Total Hemoglobin 14.4 Urine Amorphous Urates MODERATE Urine Amphetamines Screen Negative Urine Bacteria FEW Urine Barbiturates Negative Urine Benzodiazepines Screen Negative Urine Bilirubin NEGATIVE Urine Cannabinoids Negative Urine Clarity SLIGHTLY CLOUDY Urine Cocaine Screen Negative Urine Color YELLOW Urine Glucose 0.5% H Urine Hemoglobin TRACE Urine Ketones NEGATIVE Urine Leukocyte Esterase NEGATIVE Urine Microscopic RBC 5-10 Urine Microscopic WBC 10-25 Urine Nitrite NEGATIVE Urine Opiates Screen Negative Urine Specific [place] 1.020 Urine Total Protein 4+ H Urine Transitional Epithelial Cells MODERATE Urine Urobilinogen 0.2 E.U./dL Urine pH 6.0 Bedside Glucose 130 Test 12/09/16 15:21 12/09/16 17:14 12/09/16 21:19 Activated Partial Thromboplast Time 20.0 L INR International Normalized Ratio 0.97 Prothrombin Time 12.9 Prothrombin Time Ratio 1.0 Bedside Glucose 102 187 Medications Medications Current Medications Sodium Chloride (1/2 NS) 1,000 ml @ 20 mls/hr Q24H IV Last administered on 12/09 21:42; Admin Dose 20 MLS/HR; Start 12/09/16 at 15:56 Ondansetron HCl (Zofran Inj) 4 mg Q6H PRN IV NAUSEA AND/OR VOMITING; Start 12/09 at 16:00 Morphine Sulfate (morphine) 2 mg Q4H PRN IV SEVERE PAIN LEVEL 7-10; Start at 16:00 Enoxaparin Sodium (Lovenox) 40 mg DAILY SC ; Start 12/10/16 at 09:00 Acetaminophen (Tylenol Supp) 650 mg Q4H PRN WI PAIN AND OR ELEVATED TEMP; Start 12/09/16 at 16:00 Alprazolam (Xanax) 0.25 mg TID PRN PO ANXIETY; Start 12/09/16 at 16:00 Amlodipine Besylate (Norvasc) 10 mg DAILY PO ; Start 12/10/16 at 09:00 Ascorbic Acid (Vitamin C) 500 mg DAILY PO ; Start 12/10/16 at 09:00 Aspirin (Aspirin) 81 mg DAILY PO ; Start 12/10/16 at 09:00 Bisacodyl (Dulcolax Supp) 10 mg Q48H PRN WI PRN; Start 12/09/16 at 16:00 Carvedilol (Coreg) 12.5 mg BID PO Last administered on 12/09/16 21:23; Admin Dose 12.5 MG; Start 12/09/16 at 21:00 Clonidine (Catapres) 0.1 mg Q8 PRN PO ELEVATED BLOOD PRESSURE Last administered on 12/09/16 17:17; Admin Dose 0.1 MG; Start 12/09/16 at 16:00 Cyanocobalamin (Vitamin B12) 1,000 mcg DAILY PO ; Start 12/10/16 at 09:00 Enoxaparin Sodium (Lovenox) 40 mg DAILY SC ; Start 12/10/16 at 09:00 Ferrous Sulfate (Ferrous Sulfate (Ec)) 325 mg BID PO Last administered on 21:21; Admin Dose 325 MG; Start 12/09/16 at 21:00 Hydralazine HCl (Apresoline) 25 mg Q8H PRN PO SBP ABOVE 170 Last administered on 12/09/16 17:16; Admin Dose 25 MG; Start 12/09/16 at 16:00 Insulin Glargine (Lantus) 15 unit QHS SC Last administered on 12/09/16 21:24; Admin Dose 15 UNIT; Start 12/09/16 at 21:00 Magnesium Oxide (Mag-Ox 400) 400 mg BID PO Last administered on 12/09/16 21:41 ; Admin Dose 400 MG; Start 12/09/16 at 21:00 Montelukast Sodium (Singulair) 10 mg DAILY PO ; Start 12/10/16 at 09:00 Nitroglycerin (Nitroglycerin (Sl Tab) 0.4 Mg) 1 tab [id number] PRN SL CHEST PAIN ; Start 12/09/16 at 16:00 Ondansetron HCl (Zofran Tab) 4 mg Q6H PRN PO NAUSEA AND/OR VOMITING; Start 12/09 at 16:00 Polyethylene Glycol (Miralax) 17 gm DAILY PO ; Start 12/10/16 at 09:00 Prednisone (Prednisone) 5 mg DAILY PO ; Start 12/10/16 at 09:00 Salmeterol Xinafoate/ Fluticasone (Advair 250/50 Diskus) 1 inh BID INH Last administered on 12/09/16 21:20; Admin Dose 1 INH; Start 12/09/16 at 21:00 Senna (Senokot) 2 tab QHS PO Last administered on 12/09/16 21:21; Admin Dose 2 TAB; Start 12/09/16 at 21:00 Sodium Biphosphate/ Sodium Phosphate (Fleet Enema Pediatric) 66.6 ml Q72H PRN WI CONSTIPATION; Start 12/09/16 at 16:00 Valsartan (Diovan) 40 mg BID PO Last administered on 12/09/16 21:22; Admin Dose 40 MG; Start 12/09/16 at 21:00 Multivitamins/ Minerals (Theragran-M) 1 tab DAILY PO ; Start 12/10/16 at 09:00 Insulin Aspart (Novolog Insulin Pen) NOVOLOG *MILD* ALGORI... Q4 SC Last administered on 12/09/16 21:27; Admin Dose 2 UNIT; Start 12/09/16 at 17:00 Miscellaneous Information 1 ea NOTE XX ; Start 12/09/16 at 17:30 Glucose (Glutose) 15 gm Q15M PRN PO DECREASED GLUCOSE; Start 12/09/16 at 17:30 Glucose (Glutose) 22.5 gm Q15M PRN PO DECREASED GLUCOSE; Start 12/09/16 at 17:30 Dextrose (D50w Syringe) 25 ml Q15M PRN IV DECREASED GLUCOSE; Start 12/09/16 at 17:30 Dextrose (D50w Syringe) 50 ml Q15M PRN IV DECREASED GLUCOSE; Start 12/09/16 at 17:30 Glucagon (Glucagen) 1 mg Q15M PRN IM DECREASED GLUCOSE; Start 12/09/16 at 17:30 Glucose 15 gm 15 gm Q15M PRN BUCCAL DECREASED GLUCOSE; Start 12/09/16 at 17:30 Aztreonam 50 ml @ 100 mls/hr Q12 IVPB ; Start 12/09/16 at 21:00 Vancomycin HCl (Vancocin) 250 ml @ 125 mls/hr Q24H IVPB ; Start 12/10/16 at 13: 30 ADAM RAZA M.D. Dec 09, 2016 22:19
[2016-12-09] MEDS: AZTREONAM 1 GM/NS (PMX) 50 ML IVPB SCH (23:33)
[2016-12-10] VITALS (13 sets, daily range): BP systolic 120–170; BP diastolic 59–84; PULSE 43–74; RESP 18–20; Ht 142.2 cm; Wt 90.9 kg
[2016-12-10] MEDS: INSULIN ASPART [NOVOLOG] 3 ML PEN SC SCH ×6 (01:00→21:00)
--- NOTE | 2016-12-10 06:13 | CONS ---
DATE OF ADMISSION: 12/09/2016 DATE OF CONSULTATION: 12/09/2016 TYPE OF CONSULTATION: Pulmonary REASON FOR CONSULTATION: Shortness of breath. Thank you, Dr. Ramirez, for this consultation. HISTORY OF PRESENT ILLNESS: This is a morbidly obese, 51-year-old lady with a history of obstructiv e sleep apnea, recent admission for hypoxemic respiratory failure, came in with altered mental statu s, questionable CODE STROKE. She had stat arterial blood gas performed that demonstrated mild hyper capnia. Upon initiation of noninvasive positive pressure ventilation and patient's mentation has im proved. She is now somewhat more alert. PAST MEDICAL HISTORY: Includes acute on chronic hypercapnic respiratory failure, pulmonary edema, h ypertension, hyperlipidemia, type 2 diabetes, recent pneumonia, questionable pulmonary fibrosis. MEDICATIONS: Per chart. ALLERGIES: NONE. SOCIAL HISTORY: Nonsmoker, no alcohol, no history of drug use. FAMILY HISTORY: Noncontributory. SYSTEMS REVIEW: A 12-point review of systems was negative other than that mentioned above. PHYSICAL EXAMINATION: GENERAL: Morbidly obese lady, awake, alert, oriented, comfortable at rest on BiPAP. VITAL SIGNS: Currently afebrile, pulse is 70, blood pressure 155/100, O2 saturation 96% on FIO2 of 30%. NECK: Supple. No JVD or lymphadenopathy. CARDIAC: S1, S2, no added sounds or murmurs. CHEST: Diminished air entry bilaterally. ABDOMEN: Obese, soft, nontender, no guarding, no rebound. EXTREMITIES: No cyanosis, clubbing, 1+ edema. NEUROLOGIC: Generalized weakness. LABORATORY DATA: White count 13.4, hemoglobin 13.6, platelets 169, glucose 418. BUN 35, creatinine 0.61. ABG: pH 7.32, pCO2 64, pO2 of 73. DIAGNOSTIC DATA: Chest x-ray was reviewed, shows patchy bilateral upper lobe infiltrates, possible underlying pulmonary edema. CT of the brain was performed, showed no acute abnormalities. IMPRESSION AND PLAN: 1. Altered mental status possibly secondary to hypercapnia. 2. Probable obesity hypoventilation syndrome. 3. Questionable acute bronchitis. 4. Likely diastolic dysfunction. 5. History of diabetes. The patient will require: 1. Nocturnal noninvasive positive pressure ventilation. 2. Aspiration precautions. 3. Continue glycemic management. 4. Bronchodilators. 5. Antibiotics. 6. Glycemic management. 7. DVT and GI prophylaxis. Dictated By: SAMANTHA PAGE/ANICETO Conf#: [id number] DID#: [id number]
[2016-12-10 07:11] LABS: POTASSIUM 3.1 mmol/L (3.5-5.1)
[2016-12-10 07:14] LABS: CREATININE 0.6 mg/dl (0.44-1.00); PHOSPHORUS 2.3 mg/dl (2.5-4.9)
[2016-12-10 07:15] LABS: CALCIUM 9.4 mg/dl (8.4-10.2); MAGNESIUM 1.7 mg/dl (1.7-2.5)
[2016-12-10] MEDS: PANTOPRAZOLE (EC) 40 MG TAB PO SCH (07:41)
[2016-12-10 08:21] LABS: WHITE BLOOD COUNT 8.1 10^3/ul (4.8-10.8)
[2016-12-10 08:22] LABS: HEMATOCRIT 34.4 % (37.0-47.0); HEMOGLOBIN 11.1 g/dl (12.0-16.0); MEAN CORPUSCULAR HEMOGLOBIN 26.9 pg (29.0-33.0); MEAN CORPUSCULAR HGB CONC 32.3 g/dl (32.0-37.0); MEAN CORPUSCULAR VOLUME 83.5 fl (82.0-101.0); PLATELET COUNT 164 10^3/UL (140-440); RED BLOOD COUNT 4.12 10^6/ul (4.20-5.40); RED CELL DISTRIBUTION WIDTH 23.4 % (11.5-14.5); UNCORRECTED WBC 8.1 10^3/ul (4.8-10.8)
[2016-12-10 08:23] LABS: BASOPHILS % 0.1 % (0.0-2.0); EOSINOPHILS % 0.6 % (0.0-7.0); LYMPHOCYTES % 24.1 % (15.0-51.0); MONOCYTES % 12.7 % (0.0-11.0)
[2016-12-10] MEDS: CYANOCOBALAMIN 500 MCG TAB PO SCH (08:41)
[2016-12-10] MEDS: ASCORBIC ACID 500 MG TAB PO SCH (08:41)
[2016-12-10] MEDS: POLYETHYLENE GLYCOL 17 GM PACKET PO SCH (08:41)
[2016-12-10] MEDS: ASPIRIN 81 MG TAB PO SCH (08:42)
[2016-12-10] MEDS: FERROUS SULFATE (EC) 325 MG TAB PO SCH ×2 (08:42→21:06)
[2016-12-10] MEDS: MULTIVITAMINS/MINERALS TAB PO SCH (08:42)
[2016-12-10] MEDS: MONTELUKAST 10 MG TAB PO SCH (08:42)
[2016-12-10] MEDS: predniSONE 5 MG TAB PO SCH (08:42)
[2016-12-10] MEDS: MAGNESIUM OXIDE 400 MG TAB PO SCH ×2 (08:42→21:06)
[2016-12-10] MEDS: AMLODIPINE 10 MG TAB PO SCH (08:44)
[2016-12-10] MEDS: ENOXAPARIN 40 MG/0.4 ML SYG SC SCH (08:47)
[2016-12-10] MEDS: VALSARTAN 80 MG TAB PO SCH ×2 (08:53→21:05)
[2016-12-10] MEDS ORDERED: ENOXAPARIN 40 MG/0.4 ML SYG SC SCH (09:00)
--- NOTE | 2016-12-10 09:14 | RADRPT ---
PROCEDURE: XR Chest. CLINICAL INDICATION: Shortness of breath TECHNIQUE: A single portable view of the chest was obtained. COMPARISON: 12/09/2016 FINDINGS: Exam is limited secondary to patient positioning. The cardiomediastinal silhouette is stable. Diffu se pulmonary vascular congestion is noted. Scattered patchy air space disease is once again seen and has not changed significantly. The soft tissues and osseous structures are unremarkable. IMPRESSION: Stable diffuse pulmonary vascular congestion and scattered patchy air space disease. RPTAT: [facility]PN[facility] Physician Sherrie Date Time Electronically viewed and signed by Physician Sherrie on 12/10/2016 09:14 /
[2016-12-10] MEDS ORDERED: POTASSIUM CHLORIDE (SR) 20 MEQ TAB PO SCH (10:00)
--- NOTE | 2016-12-10 10:03 | CONS ---
Date/Time of Note Date/Time of Note DATE: 12/10/16 TIME: 09:54 Assessment/Plan Assessment/Plan Chief Complaint/Hosp Course assessment/impression - influenza B bronchitis - possibly superimposed bacterial PNA - frequent episodes of hypoxic resp failure - underlying pulmonary fibrosis - h/o MS change on admission, etiology hypercapnia from hypoventilation, CVA or seizure - spina bifida - DM - CAD - reported allergy to PCN and sulfa (both causes facial and periorbital swelling ) recommendations - I will review the results of: blood cultures, respiratory virus test by PCR, procalcitonin, cocci serology, legionella antigen, mycoplasma serology - start PO oseltamivir (12/10/2016-) - continue IV vancomycin, aztreonam and levofloaxcin for empiric treatment of superimposed bacterial PNA - place Pt on droplet precautions management d/w Pt, her RN and charge nurse Problems: Consultation Date/Type/Reason Admit Date/Time Dec 09, 2016 at 12:26 Date of Consultation: Dec 10, 2016 Type of Consultation: ID Reason for Consultation HCAP, bronchitis Hx of Present Illness This is a 51 yo female SNF resident with h/o spina bifida, DM, asthma and pulmonary fibrosis. Pt has been admitted at various hospitals this winter season for respiratory failure. most recently Pt was admitted at [facility] due to hypoxic respiratory failure requiring intubation. Pt was sent to [facility] several days ago. Pt was readmitted on 12/09/2016 due to MS change. Tele- neurology assessed Pt. her mental status improved gradually. The etiology of her MS change was thought to be either seizure, CVA or hypercapnea from hypoventilation. Pt was noted to have leukocytosis and b/l ground glass opacity on CXR. SOCIAL SCIENCES RESEARCH SCIENTIST Tommy at [facility] who cares for this Pt contacted Dr. Moore at ER and requested ID consult by us on 12/09/2016. I reviewed Pt's records and made preliminary recommendations on EMR on 12/09/2016. Overnight her nasopharyngeal swab returned positive for influenza B. Pt received seasonal influenza immunization. Constitutional: chills Eyes: no complaints ENT: no complaints Respiratory: cough, sputum, No pleuritic pain, No wheezing Cardiovascular: no complaints Gastrointestinal: no complaints Genitourinary: other (has FC, retains urine) Musculoskeletal: no complaints Skin: no complaints Neurologic: other (spina bifida) Past Medical History Medical History: diabetes Past Surgical History Past Surgical Hx: no surgical history Social History Smoking Status: Never smoker Exam/Review of Systems Vital Signs Vitals Vital Signs Date Time Temp Pulse Resp B/P Pulse Ox O2 Delivery O2 Flow Rate FiO2 12/10/16 08:03 43 12/10/16 07:44 98.0 19 125/59 99 12/10/16 00:00 Room Air 12/09/16 17:20 4.0 12/09/16 16:34 30 Intake and Output 12/09/16 12/09/16 12/10/16 15:00 23:00 07:00 Intake Total 800 ml Balance 800 ml Results Result Diagram: 12/10/16 0540 12/10/16 0540 Results 24 hrs Laboratory Tests Test 12/09/16 11:21 12/09/16 11:52 12/09/16 14:25 12/09/16 14:35 Anion Gap 16 Basophils # 0.0 Basophils % 0.0 Blood Morphology Comment Blood Urea Nitrogen 35 H Calcium Level 9.8 Carbon Dioxide Level 33 H Chloride Level 95 L Creatinine 0.61 Eosinophils # 0.0 Eosinophils % 0.1 Glucose Level 418 *H Hematocrit 42.0 # Hemoglobin 13.6 # Hemoglobin A1c 6.7 H Lymphocytes # 1.0 Lymphocytes % 7.7 L Mean Corpuscular Hemoglobin 26.9 L Mean Corpuscular Hemoglobin Concent 32.4 Mean Corpuscular Volume 83.1 Mean Platelet Volume 11.2 H Monocytes # 0.5 Monocytes % 3.9 Neutrophils # 11.8 H Neutrophils % 88.3 H Nucleated Red Blood Cells # 0.0 Nucleated Red Blood Cells % 0.0 Platelet Count 169 # Potassium Level 3.9 Red Blood Count 5.05 # Red Cell Distribution Width 25.3 H Sodium Level 140 Troponin I 0.015 White Blood Count 13.4 #H Arterial Blood HCO3 33.0 H Arterial Blood Base Excess 4.9 H Arterial Blood Oxygen Saturation 93.1 L Kulwant Test ACCEPTAB Arterial Blood Gas Puncture Site Left Radial Ammonia < 9 L Arterial Blood Carboxyhemoglobin 0.6 Arterial Blood Date Drawn 12/09/2016 12:05:27 PM Arterial Blood Methemoglobin 0.2 Arterial Blood pCO2 (Temp correct) 64.1 H Arterial Blood pH (Temp corrected) 7.329 L Arterial Blood pO2 (Temp corrected) 73.4 L Blood Gas A-a O2 Differential 65.2 H Blood Gas Modality NASAL CANNULA Blood Gas Notified Time 12/09/2016 12:13:11 PM Blood Gas Notified Whom AbimaelKNITTING TEACHER Blood Gas Specimen Source Blood arterial Blood Gas Temperature 37.0 FiO2 30.0 Lactic Acid Level 1.5 Oxyhemoglobin Percent 92.4 L Total Hemoglobin 14.4 Urine Amorphous Urates MODERATE Urine Amphetamines Screen Negative Urine Bacteria FEW Urine Barbiturates Negative Urine Benzodiazepines Screen Negative Urine Bilirubin NEGATIVE Urine Cannabinoids Negative Urine Clarity SLIGHTLY CLOUDY Urine Cocaine Screen Negative Urine Color YELLOW Urine Glucose 0.5% H Urine Hemoglobin TRACE Urine Ketones NEGATIVE Urine Leukocyte Esterase NEGATIVE Urine Microscopic RBC 5-10 Urine Microscopic WBC 10-25 Urine Nitrite NEGATIVE Urine Opiates Screen Negative Urine Specific [place] 1.020 Urine Total Protein 4+ H Urine Transitional Epithelial Cells MODERATE Urine Urobilinogen 0.2 E.U./dL Urine pH 6.0 Bedside Glucose 130 Test 12/09/16 15:21 12/09/16 17:14 12/09/16 21:19 12/09/16 23:50 Activated Partial Thromboplast Time 20.0 L INR International Normalized Ratio 0.97 Prothrombin Time 12.9 Prothrombin Time Ratio 1.0 Bedside Glucose 102 187 Lactic Acid Level 0.6 Test 12/10/16 05:32 12/10/16 05:40 12/10/16 08:41 Bedside Glucose 210 267 H Anion Gap 13 Basophils % 0.1 Blood Urea Nitrogen 31 H Calcium Level 9.4 Carbon Dioxide Level 27 Chloride Level 103 Creatinine 0.60 Eosinophils % 0.6 Glucose Level 220 # Hematocrit 34.4 L Hemoglobin 11.1 L Lymphocytes % 24.1 Magnesium Level 1.7 Mean Corpuscular Hemoglobin 26.9 L Mean Corpuscular Hemoglobin Concent 32.3 Mean Corpuscular Volume 83.5 Mean Platelet Volume Monocytes % 12.7 H Neutrophils % 58.0 Nucleated Red Blood Cells % 0.0 Phosphorus Level 2.3 L Platelet Count 164 Potassium Level 3.1 L Red Blood Count 4.12 L Red Cell Distribution Width 23.4 H Sodium Level 140 White Blood Count 8.1 # Medications Medications Current Medications Sodium Chloride (1/2 NS) 1,000 ml @ 20 mls/hr Q24H IV Last administered on 12/09 21:42; Admin Dose 20 MLS/HR; Start 12/09/16 at 15:56 Ondansetron HCl (Zofran Inj) 4 mg Q6H PRN IV NAUSEA AND/OR VOMITING; Start 12/09 at 16:00 Morphine Sulfate (morphine) 2 mg Q4H PRN IV SEVERE PAIN LEVEL 7-10; Start at 16:00 Enoxaparin Sodium (Lovenox) 40 mg DAILY SC Last administered on 12/10/16 08:47 ; Admin Dose 40 MG; Start 12/10/16 at 09:00 Acetaminophen (Tylenol Supp) 650 mg Q4H PRN NE PAIN AND OR ELEVATED TEMP; Start 12/09/16 at 16:00 Alprazolam (Xanax) 0.25 mg TID PRN PO ANXIETY; Start 12/09/16 at 16:00 Amlodipine Besylate (Norvasc) 10 mg DAILY PO Last administered on 12/10/16 08: 44; Admin Dose 10 MG; Start 12/10/16 at 09:00 Ascorbic Acid (Vitamin C) 500 mg DAILY PO Last administered on 12/10/16 08:41; Admin Dose 500 MG; Start 12/10/16 at 09:00 Aspirin (Aspirin) 81 mg DAILY PO Last administered on 12/10/16 08:42; Admin Dose 81 MG; Start 12/10/16 at 09:00 Bisacodyl (Dulcolax Supp) 10 mg Q48H PRN NE PRN; Start 12/09/16 at 16:00 Carvedilol (Coreg) 12.5 mg BID PO Last administered on 12/10/16 08:44; Admin Dose 12.5 MG; Start 12/09/16 at 21:00 Clonidine (Catapres) 0.1 mg Q8 PRN PO ELEVATED BLOOD PRESSURE Last administered on 12/09/16 23:40; Admin Dose 0.1 MG; Start 12/09/16 at 16:00 Cyanocobalamin (Vitamin B12) 1,000 mcg DAILY PO Last administered on 12/10/16 08:41; Admin Dose 1,000 MCG; Start 12/10/16 at 09:00 Ferrous Sulfate (Ferrous Sulfate (Ec)) 325 mg BID PO Last administered on 08:42; Admin Dose 325 MG; Start 2/3/17 at 21:00 Hydralazine HCl (Apresoline) 25 mg Q8H PRN PO SBP ABOVE 170 Last administered on 12/09/16 17:16; Admin Dose 25 MG; Start 12/09/16 at 16:00 Insulin Glargine (Lantus) 15 unit QHS SC Last administered on 12/09/16 21:24; Admin Dose 15 UNIT; Start 12/09/16 at 21:00 Magnesium Oxide (Mag-Ox 400) 400 mg BID PO Last administered on 12/10/16 08:42 ; Admin Dose 400 MG; Start 12/09/16 at 21:00 Montelukast Sodium (Singulair) 10 mg DAILY PO Last administered on 12/10/16 08: 42; Admin Dose 10 MG; Start 12/10/16 at 09:00 Nitroglycerin (Nitroglycerin (Sl Tab) 0.4 Mg) 1 tab [id number] PRN SL CHEST PAIN ; Start 12/09/16 at 16:00 Ondansetron HCl (Zofran Tab) 4 mg Q6H PRN PO NAUSEA AND/OR VOMITING; Start 12/09 at 16:00 Polyethylene Glycol (Miralax) 17 gm DAILY PO Last administered on 12/10/16 08: 41; Admin Dose 17 GM; Start 12/10/16 at 09:00 Prednisone (Prednisone) 5 mg DAILY PO Last administered on 12/10/16 08:42; Admin Dose 5 MG; Start 12/10/16 at 09:00 Salmeterol Xinafoate/ Fluticasone (Advair 250/50 Diskus) 1 inh BID INH Last administered on 12/09/16 21:20; Admin Dose 1 INH; Start 12/09/16 at 21:00 Senna (Senokot) 2 tab QHS PO Last administered on 12/09/16 21:21; Admin Dose 2 TAB; Start 12/09/16 at 21:00 Sodium Biphosphate/ Sodium Phosphate (Fleet Enema Pediatric) 66.6 ml Q72H PRN NE CONSTIPATION; Start 12/09/16 at 16:00 Valsartan (Diovan) 40 mg BID PO Last administered on 12/10/16 08:53; Admin Dose 40 MG; Start 12/09/16 at 21:00 Multivitamins/ Minerals (Theragran-M) 1 tab DAILY PO Last administered on 08:42; Admin Dose 1 TAB; Start 12/10/16 at 09:00 Insulin Aspart (Novolog Insulin Pen) NOVOLOG *MILD* ALGORI... Q4 SC Last administered on 12/10/16 08:48; Admin Dose 4 UNIT; Start 12/09/16 at 17:00 Miscellaneous Information 1 ea NOTE XX ; Start 12/09/16 at 17:30 Glucose (Glutose) 15 gm Q15M PRN PO DECREASED GLUCOSE; Start 12/09/16 at 17:30 Glucose (Glutose) 22.5 gm Q15M PRN PO DECREASED GLUCOSE; Start 12/09/16 at 17:30 Dextrose (D50w Syringe) 25 ml Q15M PRN IV DECREASED GLUCOSE; Start 12/09/16 at 17:30 Dextrose (D50w Syringe) 50 ml Q15M PRN IV DECREASED GLUCOSE; Start 12/09/16 at 17:30 Glucagon (Glucagen) 1 mg Q15M PRN IM DECREASED GLUCOSE; Start 12/09/16 at 17:30 Glucose 15 gm 15 gm Q15M PRN BUCCAL DECREASED GLUCOSE; Start 12/09/16 at 17:30 Aztreonam 50 ml @ 100 mls/hr Q12 IVPB Last administered on 12/09/16 23:33; Admin Dose 100 MLS/HR; Start 12/09/16 at 21:00 Vancomycin HCl (Vancocin) 250 ml @ 125 mls/hr Q48H IVPB ; Start 12/11/16 at 13: 00 ADAM RAZA M.D. Dec 10, 2016 10:03
--- NOTE | 2016-12-10 10:32 | PN ---
Date/Time of Note Date/Time of Note DATE: 12/10/16 TIME: 09:48 Assessment/Plan VTE Prophylaxis VTE Prophylaxis Intervention: LMWH Lines/Catheters IV Catheter Type (from Nrs): Peripheral IV Assessment/Plan Assessment/Plan PROBLEMS: Acute encephalopathy now resolved / probably 2/2 hypercapnia Acute on Chronic respiratory failure: ?improving Possible Residual versus recurrent PNA Underlying Pul fibrosis Probable OHS Hypertension: controlled Asymptomatic Bradycardia: 2/2 meds Coronary artery disease. Continue home medication. Diabetes type 2 : HbA1c 6.5 : likely associated with chronic steroid use Chronic debility secondary to spina bifida. The patient has been bedbound for many years. Hypokalemia Probable UTI Chronic Anxiety d/o PLAN: Complete work up with Echo, carotids and EEG Continue resp care and abx Prophylaxis: Lovenox. Subjective 24 Hr Interval Summary Free Text/Dictation Patient seen and examined. was sleeping comfortably Exam/Review of Systems Vital Signs Vitals Vital Signs Date Time Temp Pulse Resp B/P Pulse Ox O2 Delivery O2 Flow Rate FiO2 12/10/16 08:03 43 12/10/16 07:44 98.0 19 125/59 99 12/10/16 00:00 Room Air 12/09/16 17:20 4.0 12/09/16 16:34 30 Intake and Output 12/09/16 12/09/16 12/10/16 15:00 23:00 07:00 Intake Total 800 ml Balance 800 ml Exam GENERAL: No acute distress, sleeping, will arouse to stimulation HEENT: Normocephalic, atraumatic. LUNGS: Clear to auscultation. CARDIOVASCULAR: Regular rate and rhythm. ABDOMEN: Nondistended, nontender, soft. EXTREMITIES: No clubbing, cyanosis, or edema. Results Result Diagram: 12/10/16 0540 12/10/16 0540 Results 24 hrs Laboratory Tests Test 12/09/16 11:21 12/09/16 11:52 12/09/16 14:25 12/09/16 14:35 Anion Gap 16 Basophils # 0.0 Basophils % 0.0 Blood Morphology Comment Blood Urea Nitrogen 35 H Calcium Level 9.8 Carbon Dioxide Level 33 H Chloride Level 95 L Creatinine 0.61 Eosinophils # 0.0 Eosinophils % 0.1 Glucose Level 418 *H Hematocrit 42.0 # Hemoglobin 13.6 # Hemoglobin A1c 6.7 H Lymphocytes # 1.0 Lymphocytes % 7.7 L Mean Corpuscular Hemoglobin 26.9 L Mean Corpuscular Hemoglobin Concent 32.4 Mean Corpuscular Volume 83.1 Mean Platelet Volume 11.2 H Monocytes # 0.5 Monocytes % 3.9 Neutrophils # 11.8 H Neutrophils % 88.3 H Nucleated Red Blood Cells # 0.0 Nucleated Red Blood Cells % 0.0 Platelet Count 169 # Potassium Level 3.9 Red Blood Count 5.05 # Red Cell Distribution Width 25.3 H Sodium Level 140 Troponin I 0.015 White Blood Count 13.4 #H Arterial Blood HCO3 33.0 H Arterial Blood Base Excess 4.9 H Arterial Blood Oxygen Saturation 93.1 L Kulwant Test ACCEPTAB Arterial Blood Gas Puncture Site Left Radial Ammonia < 9 L Arterial Blood Carboxyhemoglobin 0.6 Arterial Blood Date Drawn 12/09/2016 12:05:27 PM Arterial Blood Methemoglobin 0.2 Arterial Blood pCO2 (Temp correct) 64.1 H Arterial Blood pH (Temp corrected) 7.329 L Arterial Blood pO2 (Temp corrected) 73.4 L Blood Gas A-a O2 Differential 65.2 H Blood Gas Modality NASAL CANNULA Blood Gas Notified Time 12/09/2016 12:13:11 PM Blood Gas Notified Whom AbimaelLICENSING SERVICES CLERK Blood Gas Specimen Source Blood arterial Blood Gas Temperature 37.0 FiO2 30.0 Lactic Acid Level 1.5 Oxyhemoglobin Percent 92.4 L Total Hemoglobin 14.4 Urine Amorphous Urates MODERATE Urine Amphetamines Screen Negative Urine Bacteria FEW Urine Barbiturates Negative Urine Benzodiazepines Screen Negative Urine Bilirubin NEGATIVE Urine Cannabinoids Negative Urine Clarity SLIGHTLY CLOUDY Urine Cocaine Screen Negative Urine Color YELLOW Urine Glucose 0.5% H Urine Hemoglobin TRACE Urine Ketones NEGATIVE Urine Leukocyte Esterase NEGATIVE Urine Microscopic RBC 5-10 Urine Microscopic WBC 10-25 Urine Nitrite NEGATIVE Urine Opiates Screen Negative Urine Specific [place] 1.020 Urine Total Protein 4+ H Urine Transitional Epithelial Cells MODERATE Urine Urobilinogen 0.2 E.U./dL Urine pH 6.0 Bedside Glucose 130 Test 12/09/16 15:21 12/09/16 17:14 12/09/16 21:19 12/09/16 23:50 Activated Partial Thromboplast Time 20.0 L INR International Normalized Ratio 0.97 Prothrombin Time 12.9 Prothrombin Time Ratio 1.0 Bedside Glucose 102 187 Lactic Acid Level 0.6 Test 12/10/16 05:32 12/10/16 05:40 12/10/16 08:41 Bedside Glucose 210 267 H Anion Gap 13 Basophils % 0.1 Blood Urea Nitrogen 31 H Calcium Level 9.4 Carbon Dioxide Level 27 Chloride Level 103 Creatinine 0.60 Eosinophils % 0.6 Glucose Level 220 # Hematocrit 34.4 L Hemoglobin 11.1 L Lymphocytes % 24.1 Magnesium Level 1.7 Mean Corpuscular Hemoglobin 26.9 L Mean Corpuscular Hemoglobin Concent 32.3 Mean Corpuscular Volume 83.5 Mean Platelet Volume Monocytes % 12.7 H Neutrophils % 58.0 Nucleated Red Blood Cells % 0.0 Phosphorus Level 2.3 L Platelet Count 164 Potassium Level 3.1 L Red Blood Count 4.12 L Red Cell Distribution Width 23.4 H Sodium Level 140 White Blood Count 8.1 # Medications Medications Current Medications Sodium Chloride (1/2 NS) 1,000 ml @ 20 mls/hr Q24H IV Last administered on 12/09 21:42; Admin Dose 20 MLS/HR; Start 12/09/16 at 15:56 Ondansetron HCl (Zofran Inj) 4 mg Q6H PRN IV NAUSEA AND/OR VOMITING; Start 12/09 at 16:00 Morphine Sulfate (morphine) 2 mg Q4H PRN IV SEVERE PAIN LEVEL 7-10; Start at 16:00 Enoxaparin Sodium (Lovenox) 40 mg DAILY SC Last administered on 12/10/16 08:47 ; Admin Dose 40 MG; Start 12/10/16 at 09:00 Acetaminophen (Tylenol Supp) 650 mg Q4H PRN PA PAIN AND OR ELEVATED TEMP; Start 12/09/16 at 16:00 Alprazolam (Xanax) 0.25 mg TID PRN PO ANXIETY; Start 12/09/16 at 16:00 Amlodipine Besylate (Norvasc) 10 mg DAILY PO Last administered on 12/10/16 08: 44; Admin Dose 10 MG; Start 12/10/16 at 09:00 Ascorbic Acid (Vitamin C) 500 mg DAILY PO Last administered on 12/10/16 08:41; Admin Dose 500 MG; Start 12/10/16 at 09:00 Aspirin (Aspirin) 81 mg DAILY PO Last administered on 12/10/16 08:42; Admin Dose 81 MG; Start 12/10/16 at 09:00 Bisacodyl (Dulcolax Supp) 10 mg Q48H PRN PA PRN; Start 12/09/16 at 16:00 Carvedilol (Coreg) 12.5 mg BID PO Last administered on 12/10/16 08:44; Admin Dose 12.5 MG; Start 12/09/16 at 21:00 Clonidine (Catapres) 0.1 mg Q8 PRN PO ELEVATED BLOOD PRESSURE Last administered on 12/09/16 23:40; Admin Dose 0.1 MG; Start 12/09/16 at 16:00 Cyanocobalamin (Vitamin B12) 1,000 mcg DAILY PO Last administered on 12/10/16 08:41; Admin Dose 1,000 MCG; Start 12/10/16 at 09:00 Ferrous Sulfate (Ferrous Sulfate (Ec)) 325 mg BID PO Last administered on 08:42; Admin Dose 325 MG; Start 12/09/16 at 21:00 Hydralazine HCl (Apresoline) 25 mg Q8H PRN PO SBP ABOVE 170 Last administered on 12/09/16 17:16; Admin Dose 25 MG; Start 12/09/16 at 16:00 Insulin Glargine (Lantus) 15 unit QHS SC Last administered on 12/09/16 21:24; Admin Dose 15 UNIT; Start 12/09/16 at 21:00 Magnesium Oxide (Mag-Ox 400) 400 mg BID PO Last administered on 12/10/16 08:42 ; Admin Dose 400 MG; Start 12/09/16 at 21:00 Montelukast Sodium (Singulair) 10 mg DAILY PO Last administered on 12/10/16 08: 42; Admin Dose 10 MG; Start 12/10/16 at 09:00 Nitroglycerin (Nitroglycerin (Sl Tab) 0.4 Mg) 1 tab [id number] PRN SL CHEST PAIN ; Start 12/09/16 at 16:00 Ondansetron HCl (Zofran Tab) 4 mg Q6H PRN PO NAUSEA AND/OR VOMITING; Start 12/09 at 16:00 Polyethylene Glycol (Miralax) 17 gm DAILY PO Last administered on 12/10/16 08: 41; Admin Dose 17 GM; Start 12/10/16 at 09:00 Prednisone (Prednisone) 5 mg DAILY PO Last administered on 12/10/16 08:42; Admin Dose 5 MG; Start 12/10/16 at 09:00 Salmeterol Xinafoate/ Fluticasone (Advair 250/50 Diskus) 1 inh BID INH Last administered on 12/09/16 21:20; Admin Dose 1 INH; Start 12/09/16 at 21:00 Senna (Senokot) 2 tab QHS PO Last administered on 12/09/16 21:21; Admin Dose 2 TAB; Start 12/09/16 at 21:00 Sodium Biphosphate/ Sodium Phosphate (Fleet Enema Pediatric) 66.6 ml Q72H PRN PA CONSTIPATION; Start 12/09/16 at 16:00 Valsartan (Diovan) 40 mg BID PO Last administered on 12/10/16 08:53; Admin Dose 40 MG; Start 12/09/16 at 21:00 Multivitamins/ Minerals (Theragran-M) 1 tab DAILY PO Last administered on 08:42; Admin Dose 1 TAB; Start 12/10/16 at 09:00 Insulin Aspart (Novolog Insulin Pen) NOVOLOG *MILD* ALGORI... Q4 SC Last administered on 12/10/16 08:48; Admin Dose 4 UNIT; Start 12/09/16 at 17:00 Miscellaneous Information 1 ea NOTE XX ; Start 12/09/16 at 17:30 Glucose (Glutose) 15 gm Q15M PRN PO DECREASED GLUCOSE; Start 12/09/16 at 17:30 Glucose (Glutose) 22.5 gm Q15M PRN PO DECREASED GLUCOSE; Start 12/09/16 at 17:30 Dextrose (D50w Syringe) 25 ml Q15M PRN IV DECREASED GLUCOSE; Start 12/09/16 at 17:30 Dextrose (D50w Syringe) 50 ml Q15M PRN IV DECREASED GLUCOSE; Start 12/09/16 at 17:30 Glucagon (Glucagen) 1 mg Q15M PRN IM DECREASED GLUCOSE; Start 12/09/16 at 17:30 Glucose 15 gm 15 gm Q15M PRN BUCCAL DECREASED GLUCOSE; Start 12/09/16 at 17:30 Aztreonam 50 ml @ 100 mls/hr Q12 IVPB Last administered on 12/09/16t 23:33; Admin Dose 100 MLS/HR; Start 12/09/16 at 21:00 Vancomycin HCl (Vancocin) 250 ml @ 125 mls/hr Q48H IVPB ; Start 12/11/16 at 13: 00 Procedures Procedures LIZZ SPANGLERb 4, 2017 09:58
[2016-12-10] MEDS ORDERED: POTASSIUM PHOSPHATE 30 MM in SOD CHLORIDE 0.9% 250 ML IVPB ONE (11:00)
[2016-12-10 11:03] LABS: CREATINE KINASE < 20 IU/L (23-200)
[2016-12-10 11:05] LABS: CK-MB < 0.22 ng/ml (0.0-2.4)
[2016-12-10] MEDS: SALMETEROL/FLUTICASONE 250/50 INHA INH SCH ×2 (12:45→21:05)
[2016-12-10] MEDS: OSELTAMIVIR 75 MG CAP PO SCH ×2 (12:46→21:06)
[2016-12-10] MEDS: AZTREONAM 1 GM/NS (PMX) 50 ML IVPB SCH ×2 (12:46→21:05)
[2016-12-10 12:51] LABS: CK-MB 0.32 ng/ml (0.0-2.4)
[2016-12-10 12:53] LABS: CREATINE KINASE < 20 IU/L (23-200)
[2016-12-10 12:54] LABS: TROPONIN-I 0.018 ng/ml (0.00-0.12)
[2016-12-10] MEDS ORDERED: VANCOMYCIN 1 GM in NS 250 ML IVPB SCH (13:30)
--- NOTE | 2016-12-10 14:38 | RADRPT ---
Echocardiogram Report Patient Name: BEL VELASQUEZ Gender: Female Date: 1965 Study Date: 10-Dec-2016 Vegetable Farmer: BRISA Location: I Ref. Physician: LIZZ SPANGLER Quality: Technically Difficult Study Procedures: Transthoracic echocardiogram with complete 2D, M-Mode, and doppler examination. Indications: R/O Cerebrovascular Accident; altered mental status. 2D/M Mode Doppler Measurement Value Normal Ranges Measurement Value Normal Ranges AoR Diam MM 2.6 cm MARSHA Vmax 1.3 cm2 ACS MM 1.6 cm MARSHA VTI 1.3 cm2 LVIDd 2D 5.2 3.5 - 5.6 cm AV Mean Tahir 1.4 m/sec LVIDs 2D 3.3 2.1 - 4.1 cm AV Mean PG 9.0 mmHg LVPWd 2D 1.0 0.6 - 1.1 cm AV Peak Tahir 2.1 m/sec IVSd 2D 1.1 0.6 - 1.1 cm AV Peak PG 18.3 mmHg EDV 2D 128.6 cm3 AV VTI 38.7 cm ESV 2D 36.1 cm3 LVOT Mean Tahri 0.7 m/sec LA Dimen 2D 2.7 2.3 - 4.0 cm LVOT Mean PG 2.1 mmHg LVOT Diam 1.9 cm LVOT Peak Tahir 1.0 m/sec LVOT Peak PG 4.1 mmHg LVOT VTI 18.9 cm MV E Peak Tahir 0.9 m/sec MV A Peak Tahir 0.9 m/sec MV E/A 0.9 MV Decel Time 239 msec MV Decel Morris 4 MV E/A 0.9 PV Peak Tahir 1.2 m/sec PV Peak PG 6.0 mmHg Findings Left Ventricle: Normal left ventricular systolic function. Overall, normal left ventricular systolic function. Not all segments visualized. Normal left ventricular cavity size. Ejection fraction is visually estimated at 60 %. Tissue Doppler/Mitral Doppler indices are indeterminate in this study by new diastolic guidelines. E/E`=21. Right Ventricle: Normal right ventricular size. Left Atrium: The left atrium is normal in size. Right Atrium: The right atrium is normal in size. Atrial Septum: Normal atrial septum. Mitral Valve: Normal appearance of the mitral valve. No mitral valve regurgitation is seen. Aortic Valve: Normal appearance of the aortic valve. No aortic regurgitation. Tricuspid Valve: Normal appearance of the tricuspid valve. No evidence of tricuspid regurgitation. Pulmonic Valve: Normal pulmonic valve appearance. There is trace to mild pulmonic regurgitation. Pericardium: Normal pericardium with no significant pericardial effusion. Aorta: There is at least mild aortic root calcification noted, with increased flows and normal appearing aortic valves. There is possible mild subaortic stenosis. IVC: Normal size and normal respiratory collapse consistent with normal right atrial pressure. Pulmonary Artery: Normal pulmonary artery size. Conclusions 1.Normal left ventricular systolic function. Overall, normal left ventricular systolic function. Not all segments visualized. Normal left ventricular cavity size. Ejection fraction is visually estimated at 60 %. Tissue Doppler/Mitral Doppler indices are indeterminate in this study by new diastolic guidelines. E/E`=21. 2.Normal right ventricular size. 3.Normal appearance of the mitral valve. No mitral valve regurgitation is seen. 4.Normal appearance of the aortic valve. No aortic regurgitation. 5.Normal appearance of the tricuspid valve. No evidence of tricuspid regurgitation. 6.Normal pericardium with no significant pericardial effusion. Electronically Signed By: Panda Newsome 10-Dec-2016 14:36:57 -0800 Patient Name: BEL VELASQUEZ Study Date: 10-Dec-2016 [id number]
--- NOTE | 2016-12-10 15:18 | CONS ---
Date/Time of Note Date/Time of Note DATE: 12/10/16 TIME: 15:16 Consult Date/Type/Reason Admit Date/Time Dec 09, 2016 at 12:26 Initial Consult Date 12/10/16 Type of Consultation: Pulm Ordering Provider: ROSSY SOUSA MD Subjective Comfortable No new events Objective Vital Signs Date Time Temp Pulse Resp B/P Pulse Ox O2 Delivery O2 Flow Rate FiO2 12/10/16 12:03 49 12/10/16 11:45 97.9 18 142/75 97 12/10/16 11:36 Nasal Cannula 3.0 12/09/16 16:34 30 Intake and Output 12/09/16 12/09/16 12/10/16 14:59 22:59 06:59 Intake Total 800 ml Balance 800 ml PHYSICAL EXAMINATION: GENERAL: Morbidly obese lady, awake, alert, oriented, comfortable at rest on nc. VITAL SIGNS: as above. NECK: Supple. No JVD or lymphadenopathy. CARDIAC: S1, S2, no added sounds or murmurs. CHEST: Diminished air entry bilaterally. ABDOMEN: Obese, soft, nontender, no guarding, no rebound. EXTREMITIES: No cyanosis, clubbing, 1+ edema. NEUROLOGIC: Generalized weakness. Results/Medications Result Diagram: 12/10/16 0540 12/10/16 0540 Results 24 hrs Laboratory Tests Test 12/09/16 15:21 12/09/16 17:14 12/09/16 21:19 12/09/16 23:50 Activated Partial Thromboplast Time 20.0 L INR International Normalized Ratio 0.97 Prothrombin Time 12.9 Prothrombin Time Ratio 1.0 Bedside Glucose 102 187 Lactic Acid Level 0.6 Test 12/10/16 05:32 12/10/16 05:40 12/10/16 08:41 12/10/16 12:07 Bedside Glucose 210 267 H Anion Gap 13 Basophils % 0.1 Blood Urea Nitrogen 31 H Calcium Level 9.4 Carbon Dioxide Level 27 Chloride Level 103 Creatine Kinase < 20 L < 20 L Creatine Kinase Index Creatinine 0.60 Creatinine Kinase MB (Mass) < 0.22 0.32 Eosinophils % 0.6 Glucose Level 220 # Hematocrit 34.4 L Hemoglobin 11.1 L Lymphocytes % 24.1 Magnesium Level 1.7 Mean Corpuscular Hemoglobin 26.9 L Mean Corpuscular Hemoglobin Concent 32.3 Mean Corpuscular Volume 83.5 Mean Platelet Volume Monocytes % 12.7 H Neutrophils % 58.0 Nucleated Red Blood Cells % 0.0 Phosphorus Level 2.3 L Platelet Count 164 Potassium Level 3.1 L Red Blood Count 4.12 L Red Cell Distribution Width 23.4 H Sodium Level 140 Troponin I 0.020 0.018 White Blood Count 8.1 # Test 12/10/16 12:37 Bedside Glucose 273 H Medications Current Medications Sodium Chloride (1/2 NS) 1,000 ml @ 20 mls/hr Q24H IV Last administered on 12/09 21:42; Admin Dose 20 MLS/HR; Start 12/09/16 at 15:56 Ondansetron HCl (Zofran Inj) 4 mg Q6H PRN IV NAUSEA AND/OR VOMITING; Start 12/09 at 16:00 Morphine Sulfate (morphine) 2 mg Q4H PRN IV SEVERE PAIN LEVEL 7-10; Start at 16:00 Enoxaparin Sodium (Lovenox) 40 mg DAILY SC Last administered on 12/10/16 08:47 ; Admin Dose 40 MG; Start 12/10/16 at 09:00 Acetaminophen (Tylenol Supp) 650 mg Q4H PRN [place] PAIN AND OR ELEVATED TEMP; Start 12/09/16 at 16:00 Alprazolam (Xanax) 0.25 mg TID PRN PO ANXIETY; Start 12/09/16 at 16:00 Amlodipine Besylate (Norvasc) 10 mg DAILY PO Last administered on 12/10/16 08: 44; Admin Dose 10 MG; Start 12/10/16 at 09:00 Ascorbic Acid (Vitamin C) 500 mg DAILY PO Last administered on 12/10/16 08:41; Admin Dose 500 MG; Start 12/10/16 at 09:00 Aspirin (Aspirin) 81 mg DAILY PO Last administered on 12/10/16 08:42; Admin Dose 81 MG; Start 12/10/16 at 09:00 Bisacodyl (Dulcolax Supp) 10 mg Q48H PRN [place] PRN; Start 12/09/16 at 16:00 Clonidine (Catapres) 0.1 mg Q8 PRN PO ELEVATED BLOOD PRESSURE Last administered on 12/09/16 23:40; Admin Dose 0.1 MG; Start 12/09/16 at 16:00 Cyanocobalamin (Vitamin B12) 1,000 mcg DAILY PO Last administered on 12/10/16 08:41; Admin Dose 1,000 MCG; Start 12/10/16 at 09:00 Ferrous Sulfate (Ferrous Sulfate (Ec)) 325 mg BID PO Last administered on 08:42; Admin Dose 325 MG; Start 12/09/16 at 21:00 Hydralazine HCl (Apresoline) 25 mg Q8H PRN PO SBP ABOVE 170 Last administered on 12/09/16 17:16; Admin Dose 25 MG; Start 12/09/16 at 16:00 Magnesium Oxide (Mag-Ox 400) 400 mg BID PO Last administered on 12/10/16 08:42 ; Admin Dose 400 MG; Start 12/09/16 at 21:00 Montelukast Sodium (Singulair) 10 mg DAILY PO Last administered on 12/10/16 08: 42; Admin Dose 10 MG; Start 12/10/16 at 09:00 Nitroglycerin (Nitroglycerin (Sl Tab) 0.4 Mg) 1 tab [id number] PRN SL CHEST PAIN ; Start 12/09/16 at 16:00 Ondansetron HCl (Zofran Tab) 4 mg Q6H PRN PO NAUSEA AND/OR VOMITING; Start 12/09 at 16:00 Polyethylene Glycol (Miralax) 17 gm DAILY PO Last administered on 12/10/16 08: 41; Admin Dose 17 GM; Start 12/10/16 at 09:00 Prednisone (Prednisone) 5 mg DAILY PO Last administered on 12/10/16 08:42; Admin Dose 5 MG; Start 12/10/16 at 09:00 Salmeterol Xinafoate/ Fluticasone (Advair 250/50 Diskus) 1 inh BID INH Last administered on 12/10/16 12:45; Admin Dose 1 INH; Start 12/09/16 at 21:00 Senna (Senokot) 2 tab QHS PO Last administered on 12/09/16 21:21; Admin Dose 2 TAB; Start 12/09/16 at 21:00 Sodium Biphosphate/ Sodium Phosphate (Fleet Enema Pediatric) 66.6 ml Q72H PRN [place] CONSTIPATION; Start 12/09/16 at 16:00 Valsartan (Diovan) 40 mg BID PO Last administered on 12/10/16 08:53; Admin Dose 40 MG; Start 12/09/16 at 21:00 Multivitamins/ Minerals (Theragran-M) 1 tab DAILY PO Last administered on 08:42; Admin Dose 1 TAB; Start 12/10/16 at 09:00 Insulin Aspart (Novolog Insulin Pen) NOVOLOG *MILD* ALGORI... Q4 SC Last administered on 12/10/16 12:48; Admin Dose 4 UNIT; Start 12/09/16 at 17:00 Miscellaneous Information 1 ea NOTE XX ; Start 12/09/16 at 17:30 Glucose (Glutose) 15 gm Q15M PRN PO DECREASED GLUCOSE; Start 12/09/16 at 17:30 Glucose (Glutose) 22.5 gm Q15M PRN PO DECREASED GLUCOSE; Start 12/09/16 at 17:30 Dextrose (D50w Syringe) 25 ml Q15M PRN IV DECREASED GLUCOSE; Start 12/09/16 at 17:30 Dextrose (D50w Syringe) 50 ml Q15M PRN IV DECREASED GLUCOSE; Start 12/09/16 at 17:30 Glucagon (Glucagen) 1 mg Q15M PRN IM DECREASED GLUCOSE; Start 12/09/16 at 17:30 Glucose 15 gm 15 gm Q15M PRN BUCCAL DECREASED GLUCOSE; Start 12/09/16 at 17:30 Aztreonam 50 ml @ 100 mls/hr Q12 IVPB Last administered on 12/10/16 12:46; Admin Dose 100 MLS/HR; Start 12/09/16 at 21:00 Vancomycin HCl (Vancocin) 250 ml @ 125 mls/hr Q48H IVPB ; Start 12/11/16 at 13: 00 Oseltamivir Phosphate (Tamiflu) 75 mg BID PO Last administered on 12/10/16 12: 46; Admin Dose 75 MG; Start 12/10/16 at 10:00; Stop 12/17/16 at 09:59 Insulin Glargine (Lantus) 20 unit QHS SC ; Start 12/10/16 at 21:00 Losartan Potassium (Cozaar) 25 mg DAILY PO ; Start 12/11/16 at 09:00 Assessment/Plan Chief Complaint/Hosp Course IMPRESSION AND PLAN: 1. Altered mental status possibly secondary to hypercapnia. 2. Probable obesity hypoventilation syndrome. 3. Questionable acute bronchitis. 4. Likely diastolic dysfunction. 5. History of diabetes. The patient will require: 1. Nocturnal noninvasive positive pressure ventilation. 2. Aspiration precautions. 3. Continue glycemic management. 4. Bronchodilators. 5. Antibiotics. 6. Glycemic management. 7. DVT and GI prophylaxis. 8. Will need bipap at facility. Problems: SAMANTHA AMAYA MD, [facility] Dec 10, 2016 15:18
[2016-12-10] MEDS: SOD CHLORIDE 0.45% 1,000 ML IV SCH (15:56)
--- NOTE | 2016-12-10 16:41 | RADRPT ---
PROCEDURE: US Carotids. CLINICAL INDICATION: ?cva TECHNIQUE: Multiple sonographic of the carotid bifurcation region and vertebral arteries were obta ined utilizing amato scale, duplex and color-flow imaging. The images were reviewed on a PACS worksta tion. COMPARISON: None FINDINGS: Evaluation of the right carotid bifurcation region reveals no significant calcific atherosclerotic d isease. Evaluation of the left carotid bifurcation region reveals no significant calcific atherosclerotic di sease. There is antegrade flow within the vertebral arteries bilaterally. RIGHT CAROTID MEASUREMENTS: Common Carotid [id number] (cm/sec) Internal Carotid Artery - proximalit had 58 and 49 (cm/sec) Internal Carotid Artery - mid, and 08/1976 (cm/sec) Internal Carotid Artery - distalJune 1991 (cm/sec) Internal Carotid/Common Carotid1.9 LEFT CAROTID MEASUREMENTS: Common Carotid [id number] (cm/sec) Internal Carotid Artery - [id number] (cm/sec) Internal Carotid Artery - mid37 (cm/sec) Internal Carotid Artery - dista34 (cm/sec) Internal Carotid/Common Carotid0.7 IMPRESSION: 1. No evidence for hemodynamically significant carotid artery stenosis. 2. Normal antegrade flow in the vertebral arteries bilaterally. Physician Marco Date Time Electronically viewed and signed by Physician Marco on 12/10/2016 16:40 ML/
[2016-12-10] MEDS: SENNA TAB PO SCH (21:00)
[2016-12-10] MEDS ORDERED: INSULIN GLARGINE [LANtus] 3 ML PEN SC SCH (21:00)
[2016-12-10] MEDS ORDERED: INSULIN ASPART [NOVOLOG] 3 ML PEN SC ONE (21:30)
[2016-12-11] VITALS (10 sets, daily range): BP systolic 145–154; BP diastolic 70–89; PULSE 49–76; RESP 16–20
[2016-12-11] MEDS: INSULIN ASPART [NOVOLOG] 3 ML PEN SC SCH ×4 (01:22→12:47)
[2016-12-11] MEDS: PANTOPRAZOLE (EC) 40 MG TAB PO SCH (07:52)
[2016-12-11] MEDS: AZTREONAM 1 GM/NS (PMX) 50 ML IVPB SCH (08:44)
[2016-12-11] MEDS: SALMETEROL/FLUTICASONE 250/50 INHA INH SCH (08:51)
[2016-12-11] MEDS: MAGNESIUM OXIDE 400 MG TAB PO SCH (08:51)
[2016-12-11] MEDS: CYANOCOBALAMIN 500 MCG TAB PO SCH (08:51)
[2016-12-11] MEDS: AMLODIPINE 10 MG TAB PO SCH (08:53)
[2016-12-11] MEDS: ASPIRIN 81 MG TAB PO SCH (08:53)
[2016-12-11] MEDS: OSELTAMIVIR 75 MG CAP PO SCH (08:53)
[2016-12-11] MEDS: MULTIVITAMINS/MINERALS TAB PO SCH (08:53)
[2016-12-11] MEDS: ASCORBIC ACID 500 MG TAB PO SCH (08:53)
[2016-12-11] MEDS: FERROUS SULFATE (EC) 325 MG TAB PO SCH (08:54)
[2016-12-11] MEDS: predniSONE 5 MG TAB PO SCH (08:54)
[2016-12-11] MEDS: POLYETHYLENE GLYCOL 17 GM PACKET PO SCH (08:54)
[2016-12-11] MEDS: ENOXAPARIN 40 MG/0.4 ML SYG SC SCH (08:55)
[2016-12-11] MEDS: MONTELUKAST 10 MG TAB PO SCH (09:00)
[2016-12-11] MEDS ORDERED: LOSARTAN 25 MG TAB PO SCH (09:00)
[2016-12-11] MEDS: VALSARTAN 80 MG TAB PO SCH (09:02)
[2016-12-11 09:41] LABS: BASOPHILS % 0.1 % (0.0-2.0); EOSINOPHILS # 0.3 10^3/ul (0.0-0.5); EOSINOPHILS % 2.9 % (0.0-7.0); HEMATOCRIT 35.5 % (37.0-47.0); HEMOGLOBIN 11.6 g/dl (12.0-16.0); LYMPHOCYTES % 17.2 % (15.0-51.0); MEAN CORPUSCULAR HEMOGLOBIN 27.4 pg (29.0-33.0); MEAN CORPUSCULAR HGB CONC 32.8 g/dl (32.0-37.0); MEAN CORPUSCULAR VOLUME 83.4 fl (82.0-101.0); MEAN PLATELET VOLUME 11.4 fl (7.4-10.4); MONOCYTE # 0.9 10^3/ul (0.3-0.9); MONOCYTES % 7.9 % (0.0-11.0); NEUTROPHIL # 8.3 10^3/ul (1.6-7.5); NEUTROPHILS % 71.9 % (39.0-77.0); PLATELET COUNT 137 10^3/UL (140-440); RED BLOOD COUNT 4.25 10^6/ul (4.20-5.40); RED CELL DISTRIBUTION WIDTH 25.9 % (11.5-14.5); UNCORRECTED WBC 11.5 10^3/ul (4.8-10.8); WHITE BLOOD COUNT 11.5 10^3/ul (4.8-10.8)
[2016-12-11 09:46] LABS: CREATININE 0.65 mg/dl (0.44-1.00)
[2016-12-11 09:47] LABS: MAGNESIUM 1.6 mg/dl (1.7-2.5); PHOSPHORUS 2.6 mg/dl (2.5-4.9)
--- NOTE | 2016-12-11 09:47 | CONS ---
Date/Time of Note Date/Time of Note DATE: 12/11/16 TIME: 09:44 Assessment/Plan Assessment/Plan Chief Complaint/Hosp Course assessment/impression - influenza B bronchitis - frequent episodes of hypoxic resp failure - underlying pulmonary fibrosis - h/o MS change on admission, etiology hypercapnia from hypoventilation, CVA or seizure - spina bifida - DM - CAD - reported allergy to PCN and sulfa (both causes facial and periorbital swelling ) recommendations - Pt said that she submitted a sample of her sputum to the staff but in [facility] , no respiratory sample has been received or processed in the lab. I ordered cocci serology, legionella antigen but on these orders were cancelled according to the Order History. No reason is written. - I will review the results of: blood cultures, respiratory virus test by PCR, procalcitonin, mycoplasma serology. - continue PO oseltamivir (12/10/2016-), plan for 7 days ending on 12/17/2016 ( longer duration due to her complicated medical history) - d/c IV vancomycin and aztreonam. Start PO levofloaxcin for empiric treatment of superimposed bacterial PNA, also planned through 12/17/2016 - keep Pt on droplet precautions management d/w Pt, Dr. Justice and RN Problems: Consultation Date/Type/Reason Admit Date/Time Dec 09, 2016 at 12:26 Initial Consult Date 12/10/16 Type of Consultation: ID Referring Provider: ROSSY SOUSA MD 24 HR Interval Summary Constitutional: improved Detailed Summary Eyes: no complaints ENT: no complaints Respiratory: cough, sputum, No shortness of breath, No wheezing Cardiovascular: no complaints Gastrointestinal: no complaints Genitourinary: no complaints Musculoskeletal: other (functional quadriplegia) Skin: no complaints Neurologic: other (functional quadriplegia) Exam/Review of Systems Vital Signs Vitals Vital Signs Date Time Temp Pulse Resp B/P Pulse Ox O2 Delivery O2 Flow Rate FiO2 12/11/16 08:03 49 12/11/16 07:55 98.0 20 148/70 98 12/10/16 20:00 Nasal Cannula 3.0 12/09/16 16:34 30 Intake and Output 12/10/16 12/10/16 12/11/16 15:00 23:00 07:00 Intake Total 100 ml 850 ml 800 ml Output Total 1200 ml 600 ml 600 ml Balance -1100 ml 250 ml 200 ml Exam Constitutional: frail Psych: nl mood/affect, no complaints Head: atraumatic, normocephalic Eyes: nl conjunctiva, nl lids ENMT: nl external ears & nose, nl nasal mucosa & septum Neck: supple Respiratory: crackles/rales Cardiovascular: nl pulses, regular rate and rhythm Gastrointestinal: non-tender, soft Extremities: normal pulses Results Result Diagram: 12/10/16 0540 12/10/16 0540 Results 24 hrs Laboratory Tests Test 12/10/16 12:07 12/10/16 12:37 12/10/16 17:17 12/10/16 20:24 Creatine Kinase < 20 L Creatine Kinase Index Creatinine Kinase MB (Mass) 0.32 Troponin I 0.018 Bedside Glucose 273 H 254 H 371 H Test 12/11/16 01:18 12/11/16 05:32 12/11/16 08:42 Bedside Glucose 322 H 141 124 Medications Medications Current Medications Sodium Chloride (1/2 NS) 1,000 ml @ 20 mls/hr Q24H IV Last administered on 12/09 21:42; Admin Dose 20 MLS/HR; Start 12/09/16 at 15:56 Ondansetron HCl (Zofran Inj) 4 mg Q6H PRN IV NAUSEA AND/OR VOMITING; Start 12/09 at 16:00 Morphine Sulfate (morphine) 2 mg Q4H PRN IV SEVERE PAIN LEVEL 7-10; Start at 16:00 Enoxaparin Sodium (Lovenox) 40 mg DAILY SC Last administered on 12/11/16 08:55 ; Admin Dose 40 MG; Start 12/10/16 at 09:00 Acetaminophen (Tylenol Supp) 650 mg Q4H PRN [place] PAIN AND OR ELEVATED TEMP; Start 12/09/16 at 16:00 Alprazolam (Xanax) 0.25 mg TID PRN PO ANXIETY; Start 12/09/16 at 16:00 Amlodipine Besylate (Norvasc) 10 mg DAILY PO Last administered on 12/11/16 08: 53; Admin Dose 10 MG; Start 12/10/16 at 09:00 Ascorbic Acid (Vitamin C) 500 mg DAILY PO Last administered on 12/11/16 08:53; Admin Dose 500 MG; Start 12/10/16 at 09:00 Aspirin (Aspirin) 81 mg DAILY PO Last administered on 12/11/16 08:53; Admin Dose 81 MG; Start 12/10/16 at 09:00 Bisacodyl (Dulcolax Supp) 10 mg Q48H PRN [place] PRN; Start 12/09/16 at 16:00 Clonidine (Catapres) 0.1 mg Q8 PRN PO ELEVATED BLOOD PRESSURE Last administered on 12/09/16 23:40; Admin Dose 0.1 MG; Start 12/09/16 at 16:00 Cyanocobalamin (Vitamin B12) 1,000 mcg DAILY PO Last administered on 12/11/16 08:51; Admin Dose 1,000 MCG; Start 12/10/16 at 09:00 Ferrous Sulfate (Ferrous Sulfate (Ec)) 325 mg BID PO Last administered on 08:54; Admin Dose 325 MG; Start 12/09/16 at 21:00 Hydralazine HCl (Apresoline) 25 mg Q8H PRN PO SBP ABOVE 170 Last administered on 12/09/16 17:16; Admin Dose 25 MG; Start 12/09/16 at 16:00 Magnesium Oxide (Mag-Ox 400) 400 mg BID PO Last administered on 12/11/16 08:51 ; Admin Dose 400 MG; Start 12/09/16 at 21:00 Montelukast Sodium (Singulair) 10 mg DAILY PO Last administered on 12/11/16 09: 00; Admin Dose 10 MG; Start 12/10/16 at 09:00 Nitroglycerin (Nitroglycerin (Sl Tab) 0.4 Mg) 1 tab [id number] PRN SL CHEST PAIN ; Start 12/09/16 at 16:00 Ondansetron HCl (Zofran Tab) 4 mg Q6H PRN PO NAUSEA AND/OR VOMITING; Start 12/09 at 16:00 Polyethylene Glycol (Miralax) 17 gm DAILY PO Last administered on 12/11/16 08: 54; Admin Dose 17 GM; Start 12/10/16 at 09:00 Prednisone (Prednisone) 5 mg DAILY PO Last administered on 12/11/16 08:54; Admin Dose 5 MG; Start 12/10/16 at 09:00 Salmeterol Xinafoate/ Fluticasone (Advair 250/50 Diskus) 1 inh BID INH Last administered on 12/11/16 08:51; Admin Dose 1 INH; Start 12/09/16 at 21:00 Senna (Senokot) 2 tab QHS PO Last administered on 12/09/16 21:21; Admin Dose 2 TAB; Start 12/09/16 at 21:00 Sodium Biphosphate/ Sodium Phosphate (Fleet Enema Pediatric) 66.6 ml Q72H PRN [place] CONSTIPATION; Start 12/09/16 at 16:00 Valsartan (Diovan) 40 mg BID PO Last administered on 12/11/16 09:02; Admin Dose 40 MG; Start 12/09/16 at 21:00 Multivitamins/ Minerals (Theragran-M) 1 tab DAILY PO Last administered on 08:53; Admin Dose 1 TAB; Start 12/10/16 at 09:00 Insulin Aspart (Novolog Insulin Pen) NOVOLOG *MILD* ALGORI... Q4 SC Last administered on 12/11/16 05:37; Admin Dose 1 UNIT; Start 12/09/16 at 17:00 Miscellaneous Information 1 ea NOTE XX ; Start 12/09/16 at 17:30 Glucose (Glutose) 15 gm Q15M PRN PO DECREASED GLUCOSE; Start 12/09/16 at 17:30 Glucose (Glutose) 22.5 gm Q15M PRN PO DECREASED GLUCOSE; Start 12/09/16 at 17:30 Dextrose (D50w Syringe) 25 ml Q15M PRN IV DECREASED GLUCOSE; Start 12/09/16 at 17:30 Dextrose (D50w Syringe) 50 ml Q15M PRN IV DECREASED GLUCOSE; Start 12/09/16 at 17:30 Glucagon (Glucagen) 1 mg Q15M PRN IM DECREASED GLUCOSE; Start 12/09/16 at 17:30 Glucose 15 gm 15 gm Q15M PRN BUCCAL DECREASED GLUCOSE; Start 12/09/16 at 17:30 Aztreonam 50 ml @ 100 mls/hr Q12 IVPB Last administered on 12/11/16 08:44; Admin Dose 100 MLS/HR; Start 12/09/16 at 21:00 Vancomycin HCl (Vancocin) 250 ml @ 125 mls/hr Q48H IVPB ; Start 12/11/16 at 13: 00 Oseltamivir Phosphate (Tamiflu) 75 mg BID PO Last administered on 12/11/16 08: 53; Admin Dose 75 MG; Start 12/10/16 at 10:00; Stop 12/17/16 at 09:59 Insulin Glargine (Lantus) 20 unit QHS SC Last administered on 12/10/16 21:07; Admin Dose 20 UNIT; Start 12/10/16 at 21:00 Losartan Potassium (Cozaar) 25 mg DAILY PO Last administered on 12/11/16 08:54 ; Admin Dose 25 MG; Start 12/11/16 at 09:00 ADAM RAZA M.D. Dec 11, 2016 09:47
[2016-12-11 09:58] LABS: CONDITION 1; LH ANALYZER COMMENTS 1; SUSPECT 1
[2016-12-11] MEDS ORDERED: NOVO3I SC ×2 (11:15)
[2016-12-11] MEDS ORDERED: OSLT75C PO (11:15)
[2016-12-11] MEDS ORDERED: LANT3I SC (11:15)
[2016-12-11] MEDS ORDERED: LEVO750T25 NGT (11:15)
[2016-12-11] MEDS ORDERED: PRED5 PO (11:16)
[2016-12-11] MEDS ORDERED: MAGNESIUM SULFATE 2 GM/50 ML 50 ML IVPB ONE (12:00)
[2016-12-11] MEDS ORDERED: VANCOMYCIN 1 GM in NS 250 ML IVPB SCH (13:00)
--- NOTE | 2016-12-11 13:07 | CONS ---
Date/Time of Note Date/Time of Note DATE: 12/11/16 TIME: 13:06 Consult Date/Type/Reason Admit Date/Time Dec 09, 2016 at 12:26 Initial Consult Date 12/10/16 Type of Consultation: pulmonary Ordering Provider: ROSSY SOUSA MD Subjective Patient feels better less shortness of breath States she is back to her baseline Objective Vital Signs Date Time Temp Pulse Resp B/P Pulse Ox O2 Delivery O2 Flow Rate FiO2 12/11/16 12:02 98.3 65 20 154/70 96 12/11/16 08:30 Nasal Cannula 4.0 12/09/16 16:34 30 Intake and Output 12/10/16 12/10/16 12/11/16 15:00 23:00 07:00 Intake Total 100 ml 850 ml 800 ml Output Total 1200 ml 600 ml 600 ml Balance -1100 ml 250 ml 200 ml PHYSICAL EXAMINATION: GENERAL: Morbidly obese lady, awake, alert, oriented, comfortable at rest on nc. VITAL SIGNS: as above. NECK: Supple. No JVD or lymphadenopathy. CARDIAC: S1, S2, no added sounds or murmurs. CHEST: Diminished air entry bilaterally. ABDOMEN: Obese, soft, nontender, no guarding, no rebound. EXTREMITIES: No cyanosis, clubbing, 1+ edema. NEUROLOGIC: Generalized weakness. Results/Medications Result Diagram: 12/11/16 0912 12/11/16 0912 Results 24 hrs Laboratory Tests Test 12/10/16 17:17 12/10/16 20:24 12/11/16 01:18 12/11/16 05:32 Bedside Glucose 254 H 371 H 322 H 141 Test 12/11/16 08:42 12/11/16 09:12 12/11/16 12:45 Bedside Glucose 124 314 H Anion Gap 14 Basophils # 0.0 Basophils % 0.1 Blood Morphology Comment Blood Urea Nitrogen 35 H Calcium Level 9.0 Carbon Dioxide Level 27 Chloride Level 103 Creatinine 0.65 Eosinophils # 0.3 Eosinophils % 2.9 Glucose Level 160 Hematocrit 35.5 L Hemoglobin 11.6 L Lymphocytes # 2.0 Lymphocytes % 17.2 Magnesium Level 1.6 L Mean Corpuscular Hemoglobin 27.4 L Mean Corpuscular Hemoglobin Concent 32.8 Mean Corpuscular Volume 83.4 Mean Platelet Volume 11.4 H Monocytes # 0.9 Monocytes % 7.9 Neutrophils # 8.3 H Neutrophils % 71.9 Nucleated Red Blood Cells # 0.0 Nucleated Red Blood Cells % 0.0 Phosphorus Level 2.6 Platelet Count 137 L Potassium Level 4.0 Red Blood Count 4.25 Red Cell Distribution Width 25.9 H Sodium Level 140 White Blood Count 11.5 #H Medications Current Medications Sodium Chloride (1/2 NS) 1,000 ml @ 20 mls/hr Q24H IV Last administered on 12/09 21:42; Admin Dose 20 MLS/HR; Start 12/09/16 at 15:56 Ondansetron HCl (Zofran Inj) 4 mg Q6H PRN IV NAUSEA AND/OR VOMITING; Start 12/09 at 16:00 Morphine Sulfate (morphine) 2 mg Q4H PRN IV SEVERE PAIN LEVEL 7-10; Start at 16:00 Enoxaparin Sodium (Lovenox) 40 mg DAILY SC Last administered on 12/11/16 08:55 ; Admin Dose 40 MG; Start 12/10/16 at 09:00 Acetaminophen (Tylenol Supp) 650 mg Q4H PRN [place] PAIN AND OR ELEVATED TEMP; Start 12/09/16 at 16:00 Alprazolam (Xanax) 0.25 mg TID PRN PO ANXIETY; Start 12/09/16 at 16:00 Amlodipine Besylate (Norvasc) 10 mg DAILY PO Last administered on 12/11/16 08: 53; Admin Dose 10 MG; Start 12/10/16 at 09:00 Ascorbic Acid (Vitamin C) 500 mg DAILY PO Last administered on 12/11/16 08:53; Admin Dose 500 MG; Start 12/10/16 at 09:00 Aspirin (Aspirin) 81 mg DAILY PO Last administered on 12/11/16 08:53; Admin Dose 81 MG; Start 12/10/16 at 09:00 Bisacodyl (Dulcolax Supp) 10 mg Q48H PRN [place] PRN; Start 12/09/16 at 16:00 Clonidine (Catapres) 0.1 mg Q8 PRN PO ELEVATED BLOOD PRESSURE Last administered on 12/09/16 23:40; Admin Dose 0.1 MG; Start 12/09/16 at 16:00 Cyanocobalamin (Vitamin B12) 1,000 mcg DAILY PO Last administered on 12/11/16 08:51; Admin Dose 1,000 MCG; Start 12/10/16 at 09:00 Ferrous Sulfate (Ferrous Sulfate (Ec)) 325 mg BID PO Last administered on 08:54; Admin Dose 325 MG; Start 12/09/16 at 21:00 Hydralazine HCl (Apresoline) 25 mg Q8H PRN PO SBP ABOVE 170 Last administered on 12/09/16 17:16; Admin Dose 25 MG; Start 12/09/16 at 16:00 Magnesium Oxide (Mag-Ox 400) 400 mg BID PO Last administered on 12/11/16 08:51 ; Admin Dose 400 MG; Start 12/09/16 at 21:00 Montelukast Sodium (Singulair) 10 mg DAILY PO Last administered on 12/11/16 09: 00; Admin Dose 10 MG; Start 12/10/16 at 09:00 Nitroglycerin (Nitroglycerin (Sl Tab) 0.4 Mg) 1 tab [id number] PRN SL CHEST PAIN ; Start 12/09/16 at 16:00 Ondansetron HCl (Zofran Tab) 4 mg Q6H PRN PO NAUSEA AND/OR VOMITING; Start 12/09 at 16:00 Polyethylene Glycol (Miralax) 17 gm DAILY PO Last administered on 12/11/16 08: 54; Admin Dose 17 GM; Start 12/10/16 at 09:00 Prednisone (Prednisone) 5 mg DAILY PO Last administered on 12/11/16 08:54; Admin Dose 5 MG; Start 12/10/16 at 09:00 Salmeterol Xinafoate/ Fluticasone (Advair 250/50 Diskus) 1 inh BID INH Last administered on 12/11/16 08:51; Admin Dose 1 INH; Start 12/09/16 at 21:00 Senna (Senokot) 2 tab QHS PO Last administered on 12/09/16 21:21; Admin Dose 2 TAB; Start 12/09/16 at 21:00 Sodium Biphosphate/ Sodium Phosphate (Fleet Enema Pediatric) 66.6 ml Q72H PRN [place] CONSTIPATION; Start 12/09/16 at 16:00 Valsartan (Diovan) 40 mg BID PO Last administered on 12/11/16 09:02; Admin Dose 40 MG; Start 12/09/16 at 21:00 Multivitamins/ Minerals (Theragran-M) 1 tab DAILY PO Last administered on 08:53; Admin Dose 1 TAB; Start 12/10/16 at 09:00 Insulin Aspart (Novolog Insulin Pen) NOVOLOG *MILD* ALGORI... Q4 SC Last administered on 12/11/16 12:47; Admin Dose 5 UNIT; Start 12/09/16 at 17:00 Miscellaneous Information 1 ea NOTE XX ; Start 12/09/16 at 17:30 Glucose (Glutose) 15 gm Q15M PRN PO DECREASED GLUCOSE; Start 12/09/16 at 17:30 Glucose (Glutose) 22.5 gm Q15M PRN PO DECREASED GLUCOSE; Start 12/09/16 at 17:30 Dextrose (D50w Syringe) 25 ml Q15M PRN IV DECREASED GLUCOSE; Start 12/09/16 at 17:30 Dextrose (D50w Syringe) 50 ml Q15M PRN IV DECREASED GLUCOSE; Start 12/09/16 at 17:30 Glucagon (Glucagen) 1 mg Q15M PRN IM DECREASED GLUCOSE; Start 12/09/16 at 17:30 Glucose (Glutose) 15 gm Q15M PRN BUCCAL DECREASED GLUCOSE; Start 12/09/16 at 17: 30 Oseltamivir Phosphate (Tamiflu) 75 mg BID PO Last administered on 12/11/16 08: 53; Admin Dose 75 MG; Start 12/10/16 at 10:00; Stop 12/17/16 at 09:59 Insulin Glargine (Lantus) 20 unit QHS SC Last administered on 12/10/16 21:07; Admin Dose 20 UNIT; Start 12/10/16 at 21:00 Losartan Potassium (Cozaar) 25 mg DAILY PO Last administered on 12/11/16 08:54 ; Admin Dose 25 MG; Start 12/11/16 at 09:00 Levofloxacin 750 mg 750 mg DAILY@06 NGT ; Start 12/12/16 at 06:00; Stop 12/17/16 at 23:59 Magnesium Sulfate (Magnesium Sulfate 2 Gm/50 ml) 50 ml @ 25 mls/hr ONCE ONCE IVPB Last administered on 12/11/16 12:47; Admin Dose 25 MLS/HR; Start 12/11/16 at 12:00; Stop 12/11/16 at 13:59 Assessment/Plan Chief Complaint/Hosp Course IMPRESSION AND PLAN: 1. Altered mental status possibly secondary to hypercapnia. 2. Probable obesity hypoventilation syndrome. 3. Questionable acute bronchitis. 4. Likely diastolic dysfunction. 5. History of diabetes. 6. Influenza infection The patient will require: 1. Supplemental O2 2. Tamiflu 3. Discharge planning back to home per patient's request 4. Outpatient evaluation for CPAP device. Problems: SAMANTHA AMAYA MD, [facility] Dec 11, 2016 13:07
--- NOTE | 2016-12-11 13:55 | NEURPT ---
DATE: 12/10/2016 NAME OF PROCEDURE: EEG. INDICATION: A 51-year-old lady with transient encephalopathy. DESCRIPTION OF PROCEDURE: Routine EEG was recorded digitally. [id number] and [id number] mikel ages were recorded and reviewed. All impedances were measured and recorded. Cap electrodes were pl aced in accordance with International 10-20 system of electrode placement. FINDINGS: There are multiple movements and muscle artifacts during the recording. Background activ ity of low to medium amplitude ranging in frequency between 10 to 12 cycles per second was seen in t he awake state. Photic stimulation produces no definite driving. Eye opening attenuates the backgr ound. The patient is restless during the recording. When the patient becomes drowsy, occasional ve rtex waves were observed, and intermittent slowing 2 to 4 cycles per second was seen. No definite epileptiform activity is seen. No signs of ongoing electrographic seizures or lateraliz ed slowing. IMPRESSION: Essentially normal study, though degraded by movement artifacts. Please correlate clin ically. Dictated By: MER MUÑOZ/ANICETO Conf#: [id number] DID#: [id number]
[2016-12-12] MEDS ORDERED: LEVOFLOXACIN 750 MG TABLET NGT SCH (06:00)
--- NOTE | 2016-12-12 06:29 | DS ---
DATE OF ADMISSION: 12/09/2016 DATE OF DISCHARGE: 12/11/2016 CONTINUATION CONSULTANTS ON THE CASE: 1. Dr. Polo Justice for Pulmonary. 2. Dr. Sandra Leon for Infectious Disease. 3. Dr. Juan Otto for Neurology. INTERVENTIONS: 1. The patient was placed on BiPAP therapy for respiratory failure. 2. She had a chest x-ray that showed patchy airspace disease as well as mild pulmonary vascular con gestion. 3. She was screened for influenza and was found positive for influenza B. 4. She had blood and urine cultures. 5. She had EEG done, advised by ____ was read as normal. 6. She had carotid Doppler done 12/10/2016 that was read as normal. 7. She had 2-D echocardiogram done 12/10/2016 that showed ejection fraction of 60% without signific ant valvular defect. DISPOSITION: To home to continue on home oxygen and home health. ACTIVITIES: As tolerated. DISCHARGE MEDICATIONS: For a complete list of discharge medications, please review the patient's ch art. However, the patient will complete a 10-day course of Levaquin as well as Tamiflu, and her Dylan tus dosage was increased, and she was also started on premeal NovoLog. All the rest of her other [facility] medications are basically the same except for ____, which dosage was reduced as well. SHORT HOSPITALIZATION COURSE: Full details are available in the chart for review. In summary, this patient had come in altered, brought by her family, and there was concern for a possible stroke. A code stroke was called in the ER. She was reviewed by Teleneurology, but she was thought not to be a candidate for TPA. She was admitted for further workup which showed that she was hypercapneic wi th respiratory failure, and a pulmonary consultation was obtained, and they reviewed and commenced h er on BiPAP therapy and continued her home pulmonary medications. She was also diuresed, and ID was also obtained for antibiotic therapy for pneumonia, and ____ screen came back positive for influenz a B. She was kept on precautions during her hospitalization, and she has significantly improved. A s of today, she has been cleared for discharge from both Infectious Disease as well as Pulmonary. T he patient is comfortable with discharge. She is to be discharged home to the care of her family in stable condition. I have ____ the patient's stay. She continues to have just minimal wheezing, co mfortable on 2 L of oxygen, and in my assessment, she remains stable for outpatient followup. DIET: Recommended diet is 1800 ADA. ACTIVITY: As tolerated. Time spent on discharge coordination and plannin minutes. Dictated By: LIZZ SPANGLER MD BA/NTS Conf#: [id number] DID#: [id number]
--- NOTE | 2016-12-12 06:29 | DS ---
DATE OF ADMISSION: 12/09/2016 DATE OF DISCHARGE: 12/11/2016 FINAL DIAGNOSES: 1. Acute encephalopathy that is now resolved which was probably thought to be secondary to hypercap oseas. 2. Acute on chronic respiratory failure, significantly improved, secondary to #3. 3. Recurrent pneumonia. 4. Influenza B, also contributing to pneumonia. 5. Underlying pulmonary fibrosis, chronic. 6. Probable obesity hypoventilation syndrome. 7. Hypertension, controlled. 8. Asymptomatic bradycardia secondary to medication, now resolved. 9. ____arterial disease, stable. 10. Diabetes mellitus, likely associated with hyperglycemia with steroid use. 11. Chronic debility secondary to spina bifida. DICTATION ENDS HERE. Dictated By: LIZZ SPANGLER MD, BA/ANICETO Conf#: [id number] DID#: [id number]
[2016-12-12 11:05] LABS: Allen Test ACCEPTAB; Arterial Base Excess 2.2 mmol/L (-3.0-3); Arterial COHb 0.3 % (0.0-3.0); Arterial Fraction of Oxyhgb 96.6 % (93.0-99.0); Arterial HCO3 28.5 mmol/L (22.0-26.0); Arterial MetHb 0.2 % (0.0-1.5); Arterial Total Hemglobin 11.7 g/dl (12.0-18.0); MODE ROOM AIR
[2016-12-13 14:21] LABS: MYCOPLASMA PNEUMONIAE AB (IGG) < or = 0.90
== END 2016-12-11 18:18 | disposition home or self-care (01) | DRG 70 ==
LOC: E/R 11:16 → MS4 12:26
PROVIDERS: ADMIT Internal Medicine; ATTEND Internal Medicine
PROC: 5A09357 Assistance with Respiratory Ventilation, Less than 24 Consecutive Hours, Continuous Positive Airway Pressure (ICD-10-PCS; principal; 2016-12-09)
DX: G93.41 Metabolic encephalopathy (principal); J10.08 Influenza due to other identified influenza virus with other specified pneumonia; J96.20 Acute and chronic respiratory failure, unspecified whether with hypoxia or hypercapnia; J84.10 Pulmonary fibrosis, unspecified; R56.9 Unspecified convulsions; Z68.41 Body mass index [BMI] 40.0-44.9, adult; R47.01 Aphasia; N39.0 Urinary tract infection, site not specified; G93.40 Encephalopathy, unspecified; Q05.9 Spina bifida, unspecified; Z74.01 Bed confinement status; I10 Essential (primary) hypertension; I25.10 Atherosclerotic heart disease of native coronary artery without angina pectoris; E11.9 Type 2 diabetes mellitus without complications; Z79.4 Long term (current) use of insulin; R29.716 NIHSS score 16; G47.33 Obstructive sleep apnea (adult) (pediatric); E66.01 Morbid (severe) obesity due to excess calories; J20.9 Acute bronchitis, unspecified; E87.6 Hypokalemia
CPT/HCPCS: 36415; 36600; 70450; 71010; 80048; 80307; 81001; 81003; 82140; 82550; 82553; 82803; 82962; 83036; 83605; 83735; 84100; 84145; 84484; 85025; 85610; 85730; 86635; 86738; 86756; 87040; 87086; 87400; 87449; 92610; 93005; 93306; 93880; 94660; 95819; 96372; 96374; 96375; J1650; J1815; J2997; J3370; J3475; J7030; J7050; J7512

== ENCOUNTER 2019-04-03 16:51 | Inpatient (IN) | payer OTHER, MEDICAID ==
[~2019-04-03] VITALS: Ht 149.9 cm; Wt 58.1 kg
[~2019-04-03 16:51] MED LIST changes: -ACET-2047 PO; +ACET650S9 PR; +ADV25050 INHALATION; -ALBU2.5V3 NEB; +ASPI-903 PO; -ASPI81TA3 PO; +BISA10SU75 PR; -BUDE6HFA INHALATION; -CHLO473M7 MM; -CHOL20002 PO; +CLON-379 PO; -DULR PR; +ENOX40DI2 SC; -IPRA3AMP INHALATION; +IPRA3AMP29 INHALATION; -LACTINEX PO; +LEVO750T25 NGT; -LOV40I SC; +MAGN400T27 PO; +NITR0.4T39 SL; +NOVO3I SC; +ONDA4TAB8 PO; +OSEL75CA23 PO; +PRED5TAB PO; +SENN-120 PO; -SENN-53 PO; -TUBE5VIA3 ID
[2019-04-03] MEDS ORDERED: ONDANSETRON (ODT) 4 MG TAB ODT STA (16:58)
[2019-04-03] MEDS ORDERED: morphine 4 MG/ML VIAL IM STA (16:58)
[2019-04-03] MEDS ORDERED: morphine 4 MG/ML VIAL IV STA (19:21)
[2019-04-03] MEDS ORDERED: ONDANSETRON 4 MG INJ IV STA (19:21)
[2019-04-03] MEDS ORDERED: SOD CHLORIDE 0.9% 500 ML IV STA (19:21)
[2019-04-03] MEDS ORDERED: ONDANSETRON 4 MG INJ IV PRN ×2 (20:30→21:00)
[2019-04-03] MEDS ORDERED: ACETAMINOPHEN 325 MG TAB PO PRN (20:30)
--- NOTE | 2019-04-03 20:56 | ERD ---
ER Documentation Chief Complaint Chief Complaint bib ra from dialysis center for fall, bilateral leg / ankle pain HPI This is a 53-year-old female who has a history of spina bifida, end-stage renal disease on dialysis who completed her dialysis session today. She was in her wheelchair and slipped out falling onto the ground hitting her bilateral knees. She describes tenderness and pain to the bilateral knees and moderate pain that is throbbing to the lumbar back. She denies head trauma or loss of consciousness. Patient has no neck pain. ROS All systems reviewed and are negative except as per history of present illness. Medications Home Meds Active Scripts Prednisone* (Prednisone*) 5 Mg Tab, 5 MG PO DAILY for 7 Days, TAB Prov:LIZZ SPANGLER. 12/11/16 Insulin Aspart* (Novolog Insulin Pen*) 100 Unit/Ml Soln, 5 UNIT SC WITH MEALS for 30 Days, EA Prov:LIZZ SPANGLER . 12/11/16 Levofloxacin* (Levaquin*) 750 Mg Tablet, 750 MG NGT DAILY@06 for 7 Days, TAB Prov:RAISSA SPANGLERDeonna . 12/11/16 Oseltamivir Phosphate* (Tamiflu*) 75 Mg Capsule, 75 MG PO BID for 7 Days, CAP Prov:LIZZ SPANGLER . 12/11/16 Insulin Aspart* (Novolog Insulin Pen*) 100 Unit/Ml Soln, 0 SC WITH MEALS BEDTIME for 30 Days, EA 151-200 = 2 UNITS 201-250 = 4 UNITS 251-300 = 6 UNITS 301-350 = 8 UNITS 351-400 =10 UNITS ABOVE 400 GIVE 12 UNITS AND CALL MD TO BE GIVEN WITH MEALS AND BEDTIME in addition to scheduled premeal novolog Prov:LIZZ SPANGLER. 12/11/16 Insulin Glargine* (Lantus*) 100 Unit/Ml Soln, 22 UNIT SC QHS for 30 Days, #1 VIAL Prov:LIZZ SPANGLER . 12/11/16 Valsartan* (Diovan*) 80 Mg Tablet, 40 MG PO BID for 30 Days, TAB HOLD IF SBP<110 OR HR<60 Prov:LEXY HOOKER MD 12/06/16 Carvedilol* (Carvedilol*) 25 Mg Tablet, 12.5 MG PO BID, #60 TAB HOLD IF SBP<110 OR HR<60 Prov:LEXY HOOKER MD 12/06/16 Reported Medications Ondansetron Hcl* (Zofran*) 4 Mg Tablet, 4 MG PO Q6H PRN for NAUSEA AND OR VO MITING, TAB 12/09/16 Nitroglycerin* (Nitrostat*) 0.4 Mg Tab.subl, 0.4 MG SL Q5MIN PRN for CHEST PAIN, BOTTLE 12/09/16 Magnesium Oxide* (Mag-Oxide*) 400 Mg Tablet, 400 MG PO BID, TAB FOR 7 DAYS STOP 12-15-16 12/09/16 Clonidine Hcl* (Clonidine Hcl*) 0.1 Mg Tab, 0.1 MG PO Q8 PRN for ELEVATED BLOOD PRESSURE, TAB SBP ABOVE 160 12/09/16 Salmeterol Xinaf/Fluticasone* (Advair*) 250-50 Diskus Inhaler, 1 INH INHALATION BID, #1 INHALER 12/09/16 Acetaminophen* (Acephen*) 650 Mg Supp.rect, 650 MG ME Q4H PRN for PAIN AND OR ELEVATED TEMP, SUPP.RECT 12/09/16 Ascorbic Acid* (Vitamin C*) 500 Mg Capsule.sa, 500 MG PO DAILY, CAP 11/30/16 Sennosides* (Senna Lax*) 8.6 Mg Tablet, 2 TAB PO QHS, TAB 11/30/16 Pantoprazole* (Pantoprazole*) 40 Mg Tablet.dr, 40 MG PO AC BREAKFAST, TAB 11/30/16 Protein Supplement (Promod) 946 Ml Liquid, 30 ML PO BID 11/30/16 Multivitamin with Minerals (Multivitamins with Minerals) 1 Each Tablet, 1 EACH PO DAILY, TAB 11/30/16 Montelukast Sodium* (Montelukast Sodium*) 10 Mg Tablet, 10 MG PO DAILY, #30 TAB 11/30/16 Polyethylene Glycol* (Miralax*) 17 Gm Powd.pack, 17 GM PO DAILY, #30 PACKET 11/30/16 Sod Phosphate/Sod Biphosphate* (Fleet* Enema Pediatric) 66.6 Ml Soln, 66.6 ML ME Q72H PRN for CONSTIPATION, ENEMA 11/30/16 Ferrous Sulfate* (Ferrous Sulfate*) 325 Mg Tabec, 325 MG PO BID, TAB 11/30/16 Enoxaparin Sodium* (Enoxaparin Sodium*) 40 Mg/0.4 Ml Syringe, 40 MG SC DAILY, SYR 11/30/16 Ipratropium-Albuterol (Ipratropium-Albuterol) 0.5-3 Mg/3 Ml Ampul.neb, 3 ML INHALATION Q2H, #30 VIAL Q2H FOR WHEEZING AND Q4H FOR SOB 11/30/16 Bisacodyl* (Bisacodyl*) 10 Mg Supp, 10 MG ME Q48H PRN for PRN, SUPP 11/30/16 Cyanocobalamin* (Vitamin B-12*) 1,000 Mcg Tablet.sa, 1000 MCG PO DAILY, TAB 11/30/16 Aspirin* (Aspirin* Chew) 81 Mg Tab.chew, 81 MG PO DAILY, TAB.CHEW 11/30/16 Amlodipine Besylate* (Amlodipine Besylate*) 10 Mg Tablet, 10 MG PO DAILY, #30 TAB HOLD IF SBP<110 OR HR<60 11/30/16 Alprazolam* (Alprazolam*) 0.25 Mg Tablet, 0.25 MG PO TID PRN for ANXIETY, TAB 11/30/16 Allergies Allergies: Coded Allergies: Penicillins (Verified Allergy, Unknown, 12/09/16) atenolol (Verified Allergy, Unknown, 12/09/16) prochlorperazine (Verified Allergy, Unknown, 12/09/16) sulfamethoxazole (Verified Allergy, Unknown, 12/09/16) trimethoprim (Verified Allergy, Unknown, 12/09/16) PMhx/Soc History of Surgery: Yes Anesthesia Reaction: No Hx Neurological Disorder: Yes Hx Respiratory Disorders: Yes (CYSTIC FIBROSIS, PNA) Hx Cardiac Disorders: Yes (CAD, HTN) Hx Psychiatric Problems: Yes Hx Miscellaneous Medical Probl: No Hx Alcohol Use: No Hx Substance Use: No Hx Tobacco Use: No Smoking Status: Never smoker FmHx Family History: diabetes Physical Exam Vitals Vital Signs Date Temp Pulse Resp B/P (MAP) Pulse Ox O2 O2 Flow FiO2 Time Delivery Rate 04/03/19 98.0 91 22 136/76 99 Nasal 2.0 18:30 (96) Cannula 04/03/19 98.3 90 17 99/60 (73) 95 Nasal 3.0 17:10 Cannula 04/03/19 98.7 89 19 109/89 100 16:54 (96) Physical Exam Airway is intact Bilateral breath sounds Strong distal pulses No obvious deficits General: Uncomfortable and in pain Head: Normocephalic, atraumatic Eyes: Pupils equally reactive, EOM intact ENT: Moist mucous membranes Neck: Supple, no lymphadenopathy, No midline tenderness, deformities, step-offs to the cervical spine, full active and passive range of motion without midline pain. Respiratory: Lungs clear bilaterally, no distress, no chest wall tenderness, no crepitus Cardiovascular: RRR, no murmurs, rubs, or gallops Abdominal: Soft, non-tender, non-distended, no peritoneal signs, pelvis is stable : Deferred MSK: Patient with chronic contractures. The patient has diffuse tenderness to the superior and inferior aspect of the bilateral knees. The patient has good strong pulses distally, limited range of motion that appears to be baseline. Midline back without evidence of focal tenderness to the thoracic spine but mild soft tissue tenderness to the lumbar spine that is mostly paraspinal Neurologic: Alert and oriented, no focal deficits Skin: No ecchymoses or bruising to the chest or abdomen Psych: Normal mood Result Diagram: 04/03/19 1950 04/03/19 1950 Results 24 hrs Laboratory Tests Test 04/03/19 19:50 White Blood Count 17.8 10^3/ul Red Blood Count 3.32 10^6/ul Hemoglobin 9.5 g/dl Hematocrit 30.8 % Mean Corpuscular Volume 92.8 fl Mean Corpuscular Hemoglobin 28.6 pg Mean Corpuscular Hemoglobin Concent 30.8 g/dl Red Cell Distribution Width 16.5 % Platelet Count 280 10^3/UL Mean Platelet Volume 13.1 fl Immature Granulocytes % 3.900 % Neutrophils % 85.2 % Lymphocytes % 7.0 % Monocytes % 2.6 % Eosinophils % 0.8 % Basophils % 0.5 % Nucleated Red Blood Cells % 0.0 /100WBC Immature Granulocytes # 0.690 10^3/ul Neutrophils # 15.1 10^3/ul Lymphocytes # 1.3 10^3/ul Monocytes # 0.5 10^3/ul Eosinophils # 0.1 10^3/ul Basophils # 0.1 10^3/ul Nucleated Red Blood Cells # 0.0 10^3/ul Prothrombin Time 13.5 Sec Prothrombin Time Ratio 1.1 INR International Normalized Ratio 1.02 Activated Partial Thromboplast Time 27.3 Sec Sodium Level 137 mmol/L Potassium Level 3.9 mmol/L Chloride Level 98 mmol/L Carbon Dioxide Level 32 mmol/L Anion Gap 7 Blood Urea Nitrogen 25 mg/dl Creatinine 2.17 mg/dl Est Glomerular Filtrat Rate mL/min 24 mL/min Glucose Level 165 mg/dl Calcium Level 8.6 mg/dl Current Medications Medications Dose Sig/Marge Start Time Status Last (Trade) Ordered Route PRN Stop Time Admin Dose Reason Admin Morphine 4 mg ONCE STAT 04/03/19 DC 04/03/19 Sulfate IM 16:58 17:04 (morphine) 04/03/19 17:01 Ondansetron 4 mg ONCE STAT 04/03/19 DC 04/03/19 HCl (Zofran ODT 16:58 17:04 Odt) 04/03/19 17:01 Sodium 500 ml @ Q1H STAT 04/03/19 DC 04/03/19 Chloride 500 mls/hr IV 19:21 19:57 04/03/19 20:20 Morphine 4 mg ONCE STAT 04/03/19 DC 04/03/19 Sulfate IV 19:21 19:57 (morphine) 04/03/19 19:22 Ondansetron 4 mg ONCE STAT 04/03/19 DC 04/03/19 HCl (Zofran IV 19:21 19:57 Inj) 04/03/19 19:22 Ondansetron 4 mg BRIDGE ORDER 04/03/19 HCl (Zofran PRN IV 20:30 Inj) NAUSEA/VOMITI 04/04/19 20:29 NG 650 mg ER BRIDGE 04/03/19 Acetaminophen PRN PO 20:30 (Tylenol .MILD PAIN 04/04/19 20:29 Tab) 1-3 OR TEMP Procedures/MDM EKG, MONITORS, & DIAGNOSTIC IMAGING: PROCEDURE: Right tibia and fibula. CLINICAL INDICATION: Pain. TECHNIQUE: 2 views including AP and lateral views of the right tibia and fibula were obtained. COMPARISON: None. FINDINGS: There are nondisplaced fractures of the proximal tibia and fibula metadiaphyses with mild dorsal angulation. There is a fracture of the distal femoral metaphysis involving the medial epicondyle. There is no dislocation. There is a small suprapatellar joint effusion. Bone mineralization is decreased. Vascular calcifications are present. IMPRESSION: Fracture of the distal femoral metaphysis involving the medial epicondyle. Fractures of the proximal tibia and fibula metadiaphyses with mild dorsal angulation. Severe osteopenia. Small joint effusion. Vascular calcifications reflective of atherosclerosis. PROCEDURE: Left tibia and fibula. CLINICAL INDICATION: Pain. TECHNIQUE: Two views including AP and lateral views of the left tibia and fibula were obtained. COMPARISON: None. FINDINGS: There are nondisplaced fractures of the proximal tibia and fibula metadiaphyses. There are fractures of the distal femoral metadiaphysis with mild dorsal angulation. There is periosteal thickening along the tibial and fibular diaphyses. There is no dislocation. Bone mineralization is decreased. Vascular calcifications are present. IMPRESSION: Fractures of the distal femoral metadiaphysis with mild dorsal angulation. Nondisplaced fractures of the proximal tibia and fibula metadiaphyses. Severe osteopenia. Periosteal thickening along the tibia and fibular diaphyses represents a nonspecific periostitis. Vascular calcifications reflective of atherosclerosis. PROCEDURE: CT Lumbar Spine without contrast. CLINICAL INDICATION: Back pain. TECHNIQUE: CT scan of the lumbar spine was performed on a multi-detector high-resolution CT scanner. Contiguous axial images were obtained without intravenous contrast. Coronal and sagittal reformatted images were also obtained. Images were reviewed on the PACS workstation. DICOM images are available. One or more of the following dose reduction techniques were used: - Automated exposure control. - Adjustment of the mA and/or kV according to patient size. - Use of iterative reconstruction technique. Exam CTD/vol = 23.75 mGy. Total exam DLP = 542.23 mGy-cm. COMPARISON: None. FINDINGS: The patient's position and congenital abnormalities limits evaluation. There is spina bifida with osseous midline septum at the T12 and L1. There is mild to moderate levoscoliosis of the thoracolumbar spine. Lumbar vertebral body heights and alignment otherwise are within normal limits. There is no acute fracture or subluxation. There is no central canal stenosis. There is multilevel moderate to severe neural foraminal stenosis especially at T12-L1, L1-L2: L2-L3 and L3-L4. There is dysgenesis/agenesis of the distal sacrum and coccyx. There is no paraspinal mass or collection. There are atherosclerotic calcifications of the abdominal aorta. There is a horseshoe kidney. IMPRESSION: No evidence of acute fracture or subluxation. Spina bifida with osseous midline septum at T12 and L1. Multilevel moderate to severe neural foraminal stenosis and T12-L1 through L3- L4. Moderate thoracolumbar levoscoliosis. Dysgenesis/agenesis of the distal sacrum and coccyx. Vascular calcifications reflective of atherosclerosis. Horseshoe kidney. Patient's position and congenital abnormalities limits evaluation. PROCEDURE: Right knee. CLINICAL INDICATION: Pain. TECHNIQUE: 4 views including AP, lateral and oblique views of the right knee were obtained. The images reviewed on a PACS workstation. COMPARISON: None. FINDINGS: There are nondisplaced fractures of the proximal tibia and fibula metadiaphyses with mild dorsal angulation. There is a fracture of the distal femoral metaphysis involving the medial epicondyle. There is no dislocation. There is a small suprapatellar joint effusion. Bone mineralization is decreased. Vascular calcifications are present. IMPRESSION: Fracture of the distal femoral metaphysis involving the medial epicondyle. Fractures of the proximal tibia and fibula metadiaphyses with mild dorsal angulation. Severe osteopenia. Small joint effusion. Vascular calcifications reflective of atherosclerosis. PROCEDURE: Left knee. CLINICAL INDICATION: Pain. TECHNIQUE: 4 views including AP, lateral and oblique views of the left knee were obtained. The images reviewed on a PACS workstation. COMPARISON: None. FINDINGS: There are nondisplaced fractures of the proximal tibia and fibula metadiaphyses. There are fractures of the distal femoral metadiaphysis with mild dorsal angulation. There is no dislocation. Bone mineralization is decreased. Vascular calcifications are present. IMPRESSION: Fractures of the distal femoral metadiaphysis with mild dorsal angulation. Nondisplaced fractures of the proximal tibia and fibula metadiaphyses. Severe osteopenia. Vascular calcifications reflective of atherosclerosis. PROCEDURE: Right ankle. CLINICAL INDICATION: Pain. TECHNIQUE: Three views including AP, lateral and oblique views were performed. COMPARISON: None. FINDINGS: There is severe demineralization which limits evaluation of underlying bony detail. There is no definite fracture or dislocation. The ankle mortise is within normal limits. Vascular calcifications are present. IMPRESSION: Severe osteopenia limits evaluation of underlying bony detail. No evidence of acute fracture. Vascular calcifications reflective of atherosclerosis. PROCEDURE: XR Left Ankle. CLINICAL INDICATION: Fall with pain TECHNIQUE: AP, oblique and lateral views of the left ankle were performed. COMPARISON: None. FINDINGS: Marked diffuse osteopenia. No acute fracture or dislocation seen. Nonspecific diffuse periosteal reaction in the distal tibia and fibula. Arterial calcification. IMPRESSION: Diffuse osteopenia. No acute fracture seen. Nonspecific diffuse periosteal reaction in the distal tibia and fibula. Please see above. RPTAT: HJES PROCEDURES: Splint Application Note: Splint type: Posterior mold to the bilateral lower extremities Extremity: Bilateral lower extremities Indication: Fracture The patient was consented at bedside prior to splint application and states understanding of risks, benefits, and alternatives. The patient was neurovascularly intact prior to and status post application of the splint. The patient tolerated the procedure well and there were no complications. LAB INTERPRETATION: I reviewed the laboratory testing and it shows leukocytosis of 17 likely secondary to stress response MEDICAL DECISION MAKING: Patient presents with mechanical fall. Bilateral lower extremity pain and lumbar back pain. No head trauma or loss of consciousness. The patient does not meet high-risk criteria and based on NEXUS cervical spine criteria there is no indication for cervical spine imaging at this time. Patient benefits from x-ray imaging. CT imaging. ER COURSE: * Patient's x-ray imaging unfortunately shows bilateral femur and tibial fibular fractures. These are closed fracture as per the patient was neurologically intact. The patient does not use her legs as she is wheelchair dependent but she has significant pain that requires multiple doses of narcotic pain m edication. The patient is immobilized and warrants inpatient hospitalization for further pain management and orthopedic surgical consultation. CONSULTATION: Dr. Kay, orthopedic surgeon notified requesting bilateral femur x-rays which have been ordered. DISPOSITION PLAN: Medical surgical admission Accepting care team and consultations: I discussed the current laboratory data, diagnostic imaging and emergency care provided. Admitting team: Dr. Villatoro Admitting team indication: Insurance directed Departure Diagnosis: Primary Impression: Closed fracture of right lower extremity Encounter type: initial encounter Qualified Codes: S82.91XA - Unspecified fracture of right lower leg, initial encounter for closed fracture Additional Impressions: Closed fracture of left lower extremity Encounter type: initial encounter Qualified Codes: S82.92XA - Unspecified fracture of left lower leg, initial encounter for closed fracture End stage renal disease on dialysis Leukocytosis Leukocytosis type: unspecified Qualified Codes: D72.829 - Elevated white blood cell count, unspecified Condition: Stable DEACON MARCUS MD April 03, 2019 20:56
[2019-04-03] MEDS ORDERED: NACL 0.9% 3 ML SYG IV SCH (21:00)
[2019-04-03] MEDS ORDERED: BISACODYL (EC) 5 MG TAB PO PRN (21:00)
[2019-04-03] MEDS ORDERED: DOCUSATE SODIUM 100 MG CAP PO PRN (21:00)
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
[2019-04-03] MEDS ORDERED: HYDROmorphONE 2 MG/ML SYG IV STA (21:28)
[2019-04-03] MEDS: morphine 2 MG INJ IV PRN (22:59)
[2019-04-04] MEDS ORDERED: LORA0.5T PO (01:17)
[2019-04-04] MEDS ORDERED: HYDR-3601 PO (01:17)
[2019-04-04] MEDS ORDERED: HYDR-3671 PO (01:17)
[2019-04-04 01:19] VITALS: Ht 149.9 cm; Wt 58.1 kg
--- NOTE | 2019-04-04 01:34 | CONS ---
Assessment/Plan Assessment/Plan Hospital Course (Demo Recall) 53-year-old female with angulated and minimally displaced right acute proximal tibia fracture and minimally displaced and angulated acute left distal femur and proximal tibia fracture. Patient has very limited mobility and is essentially wheelchair-bound. In the past she has been able to bear some weight on the right lower extremity for transfers only. She has had a recent fracture to her right distal femur and has not been placing weight on the leg until she tried today. Patient is at very high risk for any surgical intervention. The patient does not wish to have any surgical intervention. Nonoperative treatment using cast would give the patient the most benefit with the least amount of risk. The patient agrees to bilateral long-leg casts. She will be nonweightbearing likely for 12 weeks. Plan: Pain control Bilateral long-leg fiberglass casts Admit to medicine for dispo Assessment/Plan (Daily) Procedure: Bilateral long leg fiberglass cast The right lower extremity was placed in a stockinette. Webril was used to wrap the lower extremity. Care was taken to ensure all bony prominences were well- padded. A long leg cast was fashioned with fiberglass tape with the knee held in approximately 15 to 20 degrees of flexion. A supracondylar femoral mold was performed. The left lower extremity was placed in a stockinette. Webril was used to wrap the lower extremity. Care was taken to ensure all bony prominences were well- padded. A long leg cast was fashioned with fiberglass tape with the knee held in approximately 15 to 20 degrees of flexion. A supracondylar femoral mold was performed. Consultation Date/Type/Reason Admit Date/Time Date of Consultation: April 04, 2019 Reason for Consultation Right proximal tibia fracture Left distal femur fracture and left proximal tibia fracture Date/Time of Note DATE: 04/04/19 TIME: 01:21 Hx of Present Illness This is a 53-year-old female with history of spina bifida and end-stage renal disease on dialysis 23 times a week. She was at dialysis today when she fell out of her wheelchair and sustained injuries to both her right and left lower extremities. Prior to this she has used her right lower extremity for transfers as she is able to place some weight. Otherwise she had minimal motor function to bilateral lower extremities and is otherwise wheelchair-bound. This past January she did sustain a fracture to her right distal femur which was treated nonoperatively. And she only began putting some weight on it today when she fell. Patient denies any numbness and tingling. She is adamant that she would not like any surgery. She is in significant pain. Patient denies fever, chills, shortness of breath, chest pain, constipation, diarrhea, numbness, and tingling. Past Medical History Spina bifida End-stage renal disease on dialysis Diabetes Home Meds Active Scripts Prednisone* (Prednisone*) 5 Mg Tab, 5 MG PO DAILY for 7 Days, TAB Prov:LIZZ SPANGLER. 12/11/16 Insulin Aspart* (Novolog Insulin Pen*) 100 Unit/Ml Soln, 5 UNIT SC WITH MEALS for 30 Days, EA Prov:LIZZ SPANGLER . 12/11/16 Levofloxacin* (Levaquin*) 750 Mg Tablet, 750 MG NGT DAILY@06 for 7 Days, TAB Prov:LIZZ SPANGLER . 12/11/16 Oseltamivir Phosphate* (Tamiflu*) 75 Mg Capsule, 75 MG PO BID for 7 Days, CAP Prov:LIZZ SPANGLER . 12/11/16 Insulin Aspart* (Novolog Insulin Pen*) 100 Unit/Ml Soln, 0 SC WITH MEALS BEDTIME for 30 Days, EA 151-200 = 2 UNITS 201-250 = 4 UNITS 251-300 = 6 UNITS 301-350 = 8 UNITS 351-400 =10 UNITS ABOVE 400 GIVE 12 UNITS AND CALL MD TO BE GIVEN WITH MEALS AND BEDTIME in addition to scheduled premeal novolog Prov:LIZZ SPANGLER. 12/11/16 Insulin Glargine* (Lantus*) 100 Unit/Ml Soln, 22 UNIT SC QHS for 30 Days, #1 VIAL Prov:LIZZ SPANGLER . 12/11/16 Valsartan* (Diovan*) 80 Mg Tablet, 40 MG PO BID for 30 Days, TAB HOLD IF SBP<110 OR HR<60 Prov:LEXY HOOKER MD 12/06/16 Carvedilol* (Carvedilol*) 25 Mg Tablet, 12.5 MG PO BID, #60 TAB HOLD IF SBP<110 OR HR<60 Prov:LEXY HOOKER MD 12/06/16 Reported Medications Hydrocodone Bit-Acetaminophen (Hydrocodone Bit-APAP) 5-325MG Tablet, 1 TAB PO DAILY for 23 Days 04/04/19 Lorazepam* (Lorazepam*) 0.5 Mg Tablet, 0.5 MG PO DAILY for 15 Days, #45 04/04/19 Hydralazine Hcl* (Hydralazine Hcl*) 25 Mg Tab, 25 MG PO DAILY for 30 Days, #90 04/04/19 Ondansetron Hcl* (Zofran*) 4 Mg Tablet, 4 MG PO Q6H PRN for NAUSEA AND OR VOMITING, TAB 12/09/16 Nitroglycerin* (Nitrostat*) 0.4 Mg Tab.subl, 0.4 MG SL Q5MIN PRN for CHEST PAIN, BOTTLE 12/09/16 Magnesium Oxide* (Mag-Oxide*) 400 Mg Tablet, 400 MG PO BID, TAB FOR 7 DAYS STOP 212/09/16 Clonidine Hcl* (Clonidine Hcl*) 0.1 Mg Tab, 0.1 MG PO Q8 PRN for ELEVATED BLOOD PRESSURE, TAB SBP ABOVE 160 12/09/16 Salmeterol Xinaf/Fluticasone* (Advair*) 250-50 Diskus Inhaler, 1 INH INHALATION BID, #1 INHALER 12/09/16 Acetaminophen* (Acephen*) 650 Mg Supp.rect, 650 MG KS Q4H PRN for PAIN AND OR ELEVATED TEMP, SUPP.RECT 12/09/16 Ascorbic Acid* (Vitamin C*) 500 Mg Capsule.sa, 500 MG PO DAILY, CAP 11/30/16 Sennosides* (Senna Lax*) 8.6 Mg Tablet, 2 TAB PO QHS, TAB 11/30/16 Pantoprazole* (Pantoprazole*) 40 Mg Tablet.dr, 40 MG PO AC BREAKFAST, TAB 11/30/16 Protein Supplement (Promod) 946 Ml Liquid, 30 ML PO BID 11/30/16 Multivitamin with Minerals (Multivitamins with Minerals) 1 Each Tablet, 1 EACH PO DAILY, TAB 11/30/16 Montelukast Sodium* (Montelukast Sodium*) 10 Mg Tablet, 10 MG PO DAILY, #30 TAB 11/30/16 Polyethylene Glycol* (Miralax*) 17 Gm Powd.pack, 17 GM PO DAILY, #30 PACKET 11/30/16 Sod Phosphate/Sod Biphosphate* (Fleet* Enema Pediatric) 66.6 Ml Soln, 66.6 ML KS Q72H PRN for CONSTIPATION, ENEMA 11/30/16 Ferrous Sulfate* (Ferrous Sulfate*) 325 Mg Tabec, 325 MG PO BID, TAB 11/30/16 Enoxaparin Sodium* (Enoxaparin Sodium*) 40 Mg/0.4 Ml Syringe, 40 MG SC DAILY, SYR 11/30/16 Ipratropium-Albuterol (Ipratropium-Albuterol) 0.5-3 Mg/3 Ml Ampul.neb, 3 ML INHALATION Q2H, #30 VIAL Q2H FOR WHEEZING AND Q4H FOR SOB 11/30/16 Bisacodyl* (Bisacodyl*) 10 Mg Supp, 10 MG KS Q48H PRN for PRN, SUPP 11/30/16 Cyanocobalamin* (Vitamin B-12*) 1,000 Mcg Tablet.sa, 1000 MCG PO DAILY, TAB 11/30/16 Aspirin* (Aspirin* Chew) 81 Mg Tab.chew, 81 MG PO DAILY, TAB.CHEW 11/30/16 Amlodipine Besylate* (Amlodipine Besylate*) 10 Mg Tablet, 10 MG PO DAILY, #30 TAB HOLD IF SBP<110 OR HR<60 11/30/16 Alprazolam* (Alprazolam*) 0.25 Mg Tablet, 0.25 MG PO TID PRN for ANXIETY, TAB 11/30/16 Medications Current Medications Ondansetron HCl (Zofran Inj) 4 mg BRIDGE ORDER PRN IV NAUSEA/VOMITING; Start 04/03/19 at 20:30; Stop 04/04/19 at 20:29 Acetaminophen (Tylenol Tab) 650 mg ER BRIDGE PRN PO .MILD PAIN 1-3 OR TEMP; Start 04/03/19 at 20:30; Stop 04/04/19 at 20:29 IV Flush (NS 3 ml) 3 ml PER PROTOCOL IV ; Start 04/03/19 at 21:00 Acetaminophen (Tylenol Tab) 650 mg Q6H PRN PO .PAIN 1-3 OR TEMP; Start 04/03/19 at 21:00 Morphine Sulfate (morphine) 2 mg Q4H PRN IV .SEVERE PAIN 7-10 Last administered on 04/03/19at 22:59; Admin Dose 2 MG; Start 04/03/19 at 21:00 Docusate Sodium (Colace) 100 mg Q12H PRN PO .CONSTIPATION; Start 04/03/19 at 21:00 Bisacodyl (Dulcolax) 5 mg DAILY PRN PO .CONSTIPATION; Start 04/03/19 at 21:00 Hydromorphone HCl (Dilaudid) 0.5 mg Q4 PRN IV PAIN LEVEL 6-10; Start 04/03/19 at 22:00 Ondansetron HCl (Zofran Inj) 4 mg Q4H PRN IV NAUSEA/VOMITING; Start 04/04/19 at 01:00 Allergies: Coded Allergies: Penicillins (Unverified Allergy, Unknown, 04/04/19) atenolol (Unverified Allergy, Unknown, 04/04/19) prochlorperazine (Unverified Allergy, Unknown, 04/04/19) sulfamethoxazole (Unverified Allergy, Unknown, 04/04/19) trimethoprim (Unverified Allergy, Unknown, 04/04/19) Past Surgical History Past Surgical Hx: no surgical history Social History Smoking Status: Never smoker Exam/Review of Systems Exam Vitals Vital Signs Date Temp Pulse Resp B/P (MAP) Pulse Ox O2 O2 Flow FiO2 Time Delivery Rate 04/04/19 114 20 99/74 (82) 97 Nasal 3.0 00:23 Cannula 04/03/19 98.0 18:30 Exam Right lower extremity: There is chronic deformities to the right lower extremity from disuse and spina bifida. Nontender to palpation along the femur And distal femur. There is tenderness palpation and a deformity of the proximal tibia. The skin is intact. Sensations intact light touch throughout the foot. Brisk cap refill. Minimal motor function in the foot and ankle. Left lower extremity: There is chronic deformities to the right lower extremity from disuse and spina bifida. Tender palpation of the distal femur and proximal tibia. The skin is intact. Sensations intact light touch throughout the foot. Brisk cap refill. Minimal motor function in the foot and ankle. Results Result Diagram: 04/03/19 1950 04/03/19 1950 Results 24hrs Laboratory Tests Test 04/03/19 19:50 04/03/19 23:38 White Blood Count 17.8 #H Red Blood Count 3.32 #L Hemoglobin 9.5 L Hematocrit 30.8 L Mean Corpuscular Volume 92.8 Mean Corpuscular Hemoglobin 28.6 L Mean Corpuscular Hemoglobin Concent 30.8 L Red Cell Distribution Width 16.5 #H Platelet Count 280 Mean Platelet Volume 13.1 H Immature Granulocytes % 3.900 H Neutrophils % 85.2 H Lymphocytes % 7.0 L Monocytes % 2.6 Eosinophils % 0.8 Basophils % 0.5 Nucleated Red Blood Cells % 0.0 Immature Granulocytes # 0.690 H Neutrophils # 15.1 H Lymphocytes # 1.3 Monocytes # 0.5 Eosinophils # 0.1 Basophils # 0.1 Nucleated Red Blood Cells # 0.0 Prothrombin Time 13.5 Prothrombin Time Ratio 1.1 INR International Normalized Ratio 1.02 Activated Partial Thromboplast Time 27.3 Sodium Level 137 Potassium Level 3.9 Chloride Level 98 Carbon Dioxide Level 32 H Anion Gap 7 Blood Urea Nitrogen 25 H Creatinine 2.17 H Est Glomerular Filtrat Rate mL/min 24 L Glucose Level 165 Calcium Level 8.6 Creatine Kinase 28 Creatine Kinase Index 6.0 Creatinine Kinase MB (Mass) 1.69 Troponin I < 0.012 Bedside Glucose 239 H Imaging Imaging 2 views of the right femur, 3 views of the right knee, 2 views of the right tibia and fibula, and 3 views of the right ankle demonstrate Old, healed fracture of the distal femoral metaphysis involving the medial epico ndyle. Acute Fractures of the proximal tibia and fibula metadiaphyses with mild dorsal angulation. Severe osteopenia. Small joint effusion. Vascular calcifications reflective of atherosclerosis. 2 views of the left femur, 3 views of the left knee, 2 views of the left tibia and fibula demonstrate Fractures of the distal femoral metadiaphysis with mild dorsal angulation. Nondisplaced fractures of the proximal tibia and fibula metadiaphyses. Severe osteopenia. Vascular calcifications reflective of atherosclerosis. Medications Medication Current Medications Ondansetron HCl (Zofran Inj) 4 mg BRIDGE ORDER PRN IV NAUSEA/VOMITING; Start 04/03/19 at 20:30; Stop 04/04/19 at 20:29 Acetaminophen (Tylenol Tab) 650 mg ER BRIDGE PRN PO .MILD PAIN 1-3 OR TEMP; Start 04/03/19 at 20:30; Stop 04/04/19 at 20:29 IV Flush (NS 3 ml) 3 ml PER PROTOCOL IV ; Start 04/03/19 at 21:00 Acetaminophen (Tylenol Tab) 650 mg Q6H PRN PO .PAIN 1-3 OR TEMP; Start 04/03/19 at 21:00 Morphine Sulfate (morphine) 2 mg Q4H PRN IV .SEVERE PAIN 7-10 Last administered on 04/03/19at 22:59; Admin Dose 2 MG; Start 04/03/19 at 21:00 Docusate Sodium (Colace) 100 mg Q12H PRN PO .CONSTIPATION; Start 04/03/19 at 21:00 Bisacodyl (Dulcolax) 5 mg DAILY PRN PO .CONSTIPATION; Start 04/03/19 at 21:00 Hydromorphone HCl (Dilaudid) 0.5 mg Q4 PRN IV PAIN LEVEL 6-10; Start 04/03/19 at 22:00 Ondansetron HCl (Zofran Inj) 4 mg Q4H PRN IV NAUSEA/VOMITING; Start 04/04/19 at 01:00 REE HOWARD MD April 04, 2019 01:32
[2019-04-04 02:00] VITALS: BP 110/72; PULSE 96; RESP 18
[2019-04-04] MEDS: HYDROmorphONE 0.5 MG/0.5 ML SYG IV PRN ×2 (02:27→20:15)
[2019-04-04] MEDS: ONDANSETRON 4 MG INJ IV PRN (02:50)
[2019-04-04] MEDS ORDERED: GLUCOSE GEL 15 GRAM TUBE PO PRN ×2 (04:30)
[2019-04-04] MEDS ORDERED: GLUCAGON 1 MG INJ IM PRN (04:30)
[2019-04-04] MEDS ORDERED: DEXTROSE 50% 50 ML SYRINGE IV PRN ×2 (04:30)
[2019-04-04] MEDS ORDERED: GLUCOSE GEL 15 GRAM TUBE BUCCAL PRN (04:30)
[2019-04-04] MEDS ORDERED: PENDING SANTYL ORDER FOR WOUND CARE XX PRN (07:00)
[2019-04-04] MEDS: INSULIN ASPART [NOVOLOG] 3 ML PEN SC SCH ×5 (07:59→20:19)
[2019-04-04 08:42] VITALS: BP 89/47; PULSE 85; RESP 18
--- NOTE | 2019-04-04 09:36 | RADRPT ---
Vent Rate: 94 bpm RR Interval: 636 msec UT Interval: 142 msec QRS Duration: 89 msec QT Interval: 380 msec QTC Interval: 476 msec P-R-T [place]: 26 - 236 - 55 degrees Sinus rhythm...normal P axis, V-rate 50- 99 Left atrial enlargement...P, P'>60mS, <-0.15mV V1 Markedly posterior QRS axis...late V-lead transition Electronically Signed By: Warren Gaspar
[2019-04-04 10:44] VITALS: BP 97/51; PULSE 91
[2019-04-04] MEDS ORDERED: INSULIN ASPART [NOVOLOG] 3 ML PEN SC SCH (11:30)
[2019-04-04 14:00] VITALS: BP 94/50; PULSE 90; RESP 20
--- NOTE | 2019-04-04 14:27 | CONS ---
DATE OF ADMISSION: 04/03/2019 DATE OF CONSULTATION: 04/04/2019 TYPE OF CONSULTATION: Nephrology. REASON FOR CONSULTATION: End-stage renal disease. PHYSICIAN REQUESTING CONSULT: Gee Thakur MD HISTORY OF PRESENT ILLNESS: This is a 53-year-old female with a past medical history of end-stage re nal disease, history of chronic back pain, history of chronic wheelchair use who presents to [facility] after falling from her dialysis unit. The patient fell off on a wheelchair to he ground suffering from bilateral lower extremity pain. She was brought into the emergency room. T he patient had imaging studies which have shown evidence of fractures of her lower extremity. The lewis mckeon was seen by orthopedist in the emergency room, placed in a soft cast and admitted to med/surg f or evaluation. In terms of patient's renal history, the patient states she was initially initiated on hemodialysis. She dialyzes at [facility]. Her primary audio specialist is Dr. Blakely. She continues to make adequa te urinary output and was told she may be off hemodialysis. PAST MEDICAL HISTORY: As stated above, history of end-stage renal disease, history of dyslipidemia, history of mineral bone disorder, history of spina bifida. FAMILY HISTORY: No family history of kidney disease. SOCIAL HISTORY: Does not drink, smoke or do drugs. MEDICATIONS: Have been reviewed. PAST SURGICAL HISTORY: Perm-A-Cath. REVIEW OF SYSTEMS: A 14-point review of systems conducted. Pertinent positives stated in HPI, other hendricks negative. ALLERGIES: PLEASE SEE LIST. PHYSICAL EXAMINATION: VITAL SIGNS: Blood pressure is 89/47, respiration 19, pulse is 79, temperature 98.0. HEENT: Head is normocephalic. NECK: Supple. HEART: Regular rate. LUNGS: Show diminished breath sounds at the base. ABDOMEN: Soft, nontender to palpation. No rebound or guarding. EXTREMITIES: Negative for clubbing, cyanosis. Positive soft cast. DERMATOLOGIC: No rashes. MUSCULOSKELETAL: No joint effusion. NEUROLOGIC: No obvious focal deficits. LABORATORY DATA: Have been reviewed. IMAGING STUDIES: Have been reviewed. ASSESSMENT AND PLAN: This is a 53-year-old female who presents with: 1. End-stage renal disease. The patient is on dialysis Monday, Monday, Monday. Last hemodialysi s was yesterday. Access is PermCath. We will plan for monitoring renal function closely. The patie nt may be recovering. The patient will receive hemodialysis intermittently as needed. 2. Anemia. Monitor hemoglobin and hematocrit levels. We will give Epogen as needed. 3. Mineral bone disorder, monitor calcium and phosphorus levels. 4. History of hypertension. The patient is currently hypotensive. Continue to monitor. 5. Lower extremity fracture. The patient is status post orthopedic evaluation. Continue fiber cast . Monitor closely. 6. Recent history of right lower extremity fracture. Continue to monitor. 7. Spina bifida. 8. History of lumbar injury. Continue to monitor. 9. Diabetes. Continue current insulin regimen. Thank you, Dr. Thakur, for this interesting consult. It will be a pleasure to follow patient with y ethan throughout the hospital course. Dictated By: GEMMA ATKINSON DO NR/NTS Conf#: [id number] DID#: [id number] CC: REE HOWARD MD; GEE THAKUR MD;*EndCC*
[2019-04-04] MEDS: morphine (ER) 15 MG TAB PO SCH ×2 (14:30→17:48)
[2019-04-04 19:37] VITALS: BP 120/60; PULSE 101; RESP 18
[2019-04-04] MEDS: BUDESONIDE (NEB) 0.5MG/2ML AMP INH SCH (19:41)
[2019-04-04] MEDS: DOCUSATE SODIUM 100 MG CAP PO SCH (20:18)
[2019-04-04] MEDS: FERROUS SULFATE (EC) 325 MG TAB PO SCH (20:18)
[2019-04-04] MEDS: INSULIN GLARGINE [LANTus] (100 UNITS/ML) SYG SC SCH (20:24)
[2019-04-04] MEDS: ARFORMOTEROL TARTRATE 15MCG/2 ML AMP INH SCH (20:41)
[2019-04-04] MEDS ORDERED: DIPHENHYDRAMINE 50 MG INJ IM PRN (22:00)
[2019-04-04] MEDS: DIPHENHYDRAMINE 50 MG INJ IV PRN (22:07)
[2019-04-05] VITALS (82 sets, daily range): BP systolic 70–136; BP diastolic 42–82; PULSE 62–87; RESP 14–23
[2019-04-05] MEDS: ACCU-CHEK XX SCH (02:00)
[2019-04-05] MEDS ORDERED: SOD CHLORIDE 0.9% 1,000 ML IV ONE (02:30)
[2019-04-05] MEDS: ACETAMINOPHEN 325 MG TAB PO PRN (03:59)
[2019-04-05] MEDS ORDERED: VANCOMYCIN IV PER PHARMACY XX SCH (04:00)
[2019-04-05] MEDS ORDERED: MIDODRINE 5 MG TAB PO ONE (04:00)
[2019-04-05] MEDS ORDERED: SOD CHLORIDE 0.9% 500 ML IV ONE (04:00)
[2019-04-05] MEDS ORDERED: VANCOMYCIN 1 GM 250 ML IVPB ONE (05:00)
[2019-04-05] MEDS: CEFTRIAXONE 2 GM/50 ML (PMX) 50 ML IVPB SCH (05:08)
[2019-04-05] MEDS ORDERED: NORepinephrine 8MG/250 ML (PMX 250 ML ONE (05:47)
[2019-04-05] MEDS: HYDROmorphONE 0.5 MG/0.5 ML SYG IV PRN ×2 (06:18→14:03)
[2019-04-05] MEDS ORDERED: NORepinephrine 8MG/250 ML (PMX 250 ML IV SCH ×2 (06:30→19:00)
--- NOTE | 2019-04-05 06:49 | EN ---
Date/Time of Note Date/Time of Note DATE: 04/05/19 TIME: 06:38 Event Note Medicine Medicine Event Note Rapid response note Patient was seen and examined at the bedside. Patient was earlier noted by the RN have low blood pressures in the 80s. She was given 500 cc bolus and a Midodrine 5 mg p.o. Patient's temperature was also noted to be elevated at 100.1. Patient was pancultured at that time. Lactic acid level. Given Tylenol and an ordered for vancomycin and ceftriaxone despite the fluid bolus in the Midrin patient's blood pressures went into the 70s systolic. Rapid response was called. Patient was awake and alert. She did not appear to be in any acute distress. Vitals: Heart rate 80 blood pressure 74/53 SPO2 94% on 2 L temperature 99.8 General: Patient currently lying in bed in no acute distress, she is awake alert and conversing CVS: Regular rate rhythm Lungs: Clear to oscillation bilaterally Irving catheter: There does appear to be a small amount of urine that does appear to be with mild pus Neuro: Alert and oriented x3 Assessment and plan #1 septic shock: Likely secondary to underlying urinary tract infection. Patient will be transferred immediately to the ICU. We will start the patient on levophed peripherally in order a PICC line. Await culture results. CBC BMP await lactic acid results. Broad-spectrum antibiotics of vancomycin and ceftriaxone. Greater than 35 minutes critical care time spent on the care management this patient. CHEYANNE THAKUR April 05, 2019 06:49
[2019-04-05] MEDS: INSULIN ASPART [NOVOLOG] 3 ML PEN SC SCH ×7 (07:35→21:00)
[2019-04-05] MEDS: ARFORMOTEROL TARTRATE 15MCG/2 ML AMP INH SCH ×2 (08:24→20:25)
[2019-04-05] MEDS: BUDESONIDE (NEB) 0.5MG/2ML AMP INH SCH ×2 (08:24→20:25)
[2019-04-05] MEDS: HEPARIN 5,000 UNIT/1 ML VIAL SC SCH ×2 (09:00→21:42)
[2019-04-05] MEDS ORDERED: AMLODIPINE 10 MG TAB PO SCH (09:00)
[2019-04-05] MEDS: DOCUSATE SODIUM 100 MG CAP PO SCH (09:02)
[2019-04-05] MEDS: MONTELUKAST 10 MG TAB PO SCH (09:02)
[2019-04-05] MEDS: FERROUS SULFATE (EC) 325 MG TAB PO SCH (09:02)
[2019-04-05] MEDS: DIPHENHYDRAMINE 50 MG INJ IV PRN (09:02)
[2019-04-05] MEDS: POLYETHYLENE GLYCOL 17 GM PACKET PO SCH (09:03)
[2019-04-05] MEDS: ASPIRIN 81 MG TAB PO SCH (09:03)
[2019-04-05] MEDS: morphine (ER) 15 MG TAB PO SCH (09:03)
--- NOTE | 2019-04-05 09:04 | PN ---
DATE: 04/05/2019 SUBJECTIVE: The patient was noted to be critically ill overnight, hypertensive and was transferred t o intensive care unit, placed on pressor support. The patient is altered. No other events noted. OBJECTIVE: VITAL SIGNS: Blood pressure is 99/59, respirations 19, pulse 82, temperature 100.2. HEENT: Head is normocephalic. NECK: Supple. HEART: Regular rate. LUNGS: Show diminished breath sounds at the base. ABDOMEN: Soft, nontender to palpation without rebound or guarding. EXTREMITIES: Negative for clubbing, cyanosis, no edema. DERMATOLOGIC: No rashes. MUSCULOSKELETAL: No joint effusion. NEUROLOGIC: No change in exam. MEDICATIONS: Reviewed. LABORATORY DATA: Reviewed. IMAGING STUDIES: Reviewed. ASSESSMENT AND PLAN: 1. End-stage renal disease. The patient is on dialysis Monday, Monday, Monday. We will plan for hemodialysis today. We will dialyze 3-1/2 hours on 2k bath, calcium 2.5. We will ultrafiltrate as tolerated. 2. Hyperkalemia. The patient will be dialyzed on 2 potassium bath. 3. Anemia. Continue to monitor hemoglobin and hematocrit levels. 4. Mineral bone disorder, monitor calcium and phosphorus levels. 5. Septic shock, etiology is likely secondary to urinary tract infection. The patient has noted pyu shawna from Irving catheter. Continue current medical management. Continue pressor support. Continue I V fluids. Continue antibiotic therapy. 6. Bilateral lower extremity fractures. The patient is evaluated by orthopedist. The patient is st atus post cast placement. Continue to monitor. 7. History of spina bifida. Continue to monitor. 8. History of lumbar injury. Continue to monitor. 9. Diabetes. Continue current insulin regimen. Please note I spent over 30 minutes of critical care time with this patient. Dictated By: GEMMA ATKINSON DO NR/NTS Conf#: [id number] DID#: [id number] CC: CHEYANNE THAKUR MD; REE HOWARD;*EndCC*
[2019-04-05] MEDS ORDERED: LIDOCAINE 1% (MPF) 5 ML VIAL SC ONE (10:30)
[2019-04-05] MEDS: ONDANSETRON 4 MG INJ IV PRN (18:15)
[2019-04-05] MEDS: EPOETIN ALFA-EPBX (ESRD) 10,000 UNIT/ML VIAL SC SCH (18:16)
[2019-04-05] MEDS: INSULIN GLARGINE [LANTus] (100 UNITS/ML) SYG SC SCH (21:41)
--- NOTE | 2019-04-05 22:39 | EN ---
Date/Time of Note Date/Time of Note DATE: 04/04/19 Event Note Medicine Medicine Event Note Progress notes Date of evaluation: April 04, 2019 Subjective: Pain bilateral lower extremity Objective: Vital signs: Temperature 98.2 pulse 90 respirations 20 blood pressure 94/50 saturations 96% on oxygen via nasal cannula 2 L/min. General: Alert, mild distress from pain, obese? Anxious HEENT: Normocephalic, atraumatic, moist mucous membranes Chest: Diminished but clear breath sounds bilaterally without crackles no wheezes Cardiovascular: Heart sounds S1 and 2, no murmurs Abdomen: Soft, nontender, positive bowel sounds Extremities: Bandaged and splinted all the way from the upper hips to the ankles bilaterally Lab values: WBC count 15.7, hemoglobin 8.6, platelets 229. Chemistry: Hemoglobin A1c 6.5, still with mild hyperglycemia, creatinine 2.84, low albumin. Lipid profile consistent with hypertriglyceridemia and low HDL, TSH within normal limits, troponin x1- All previous imaging studies reviewed. Assessment and plan: 53-year-old female who had presented to the emergency room after a fall from the wheelchair when leaving dialysis unit. Patient sustained bilateral femoral and tibia fibula fractures. After review with orthopedic surgeon, patient opted for nonsurgical management. She is currently managed as follows: 1. Bilateral multiple lower extremity fractures involving bilateral femur, tibia and fibula -Closed fractures -No neurologic vascular deficits -Patient had had a prior fracture to her right distal femur which was managed nonoperatively. 2. Severe bilateral lower extremity pain secondary to #1 3. Reactive leukocytosis 4. End-stage renal disease on hemodialysis 5. Chronic hypochromic anemia likely secondary to kidney disease 6. Chronically wheelchair-bound, nonambulant from prior spinal injury/spinal bifida 7. History of hypertension currently borderline hypotensive 8. History of pulmonary fibrosis 9. Diabetes mellitus type 2 on insulin Plan: -Continue inpatient monitoring for now and pain control. -Discussed assisted facility placement with patient as patient is home with her mother who is in her 80s and her sister. Patient is not exactly amenable to SNF placement at this time, she will discuss with her family and let me know by tomorrow. LIZZ SPANGLER April 05, 2019 22:39
--- NOTE | 2019-04-05 22:40 | PN ---
Date/Time of Note Date/Time of Note DATE: 04/05/19 Assessment/Plan VTE Prophylaxis Risk score (from Ns)>0 risk: 10 SCD applied (from Ns): No SCD contraindicated: bilateral LE trauma Pharmacological prophylaxis: heparin Lines/Catheters IV [facility]atheter [facility]from [facility] Mid Line Urinary Cath still in place: Yes Reason Cath still needed: other (indicate) Assessment/Plan Hospital Course Subjective: Patient had to be transferred to the intensive care unit overnight due to concern for sepsis with fever, tachycardia, hypotension. She is currently maintained on pressor support. Nursing verbalizing concern about need for central line access, patient has had history of developing DVT from PICC line in the past on the R side, pending PICC placement Objective: General: Alert, oriented X3 HEENT: Normocephalic, atraumatic, moist mucous membranes Chest: Diminished but clear breath sounds bilaterally without crackles no wheezes Cardiovascular: Heart sounds S1 and 2, no murmurs Abdomen: Soft, nontender, positive bowel sounds Extremities: Bandaged and splinted all the way from the upper hips to the ankles bilaterally Assessment and plan: 53-year-old female who had presented to the emergency room after a fall from the wheelchair when leaving dialysis unit. Patient sustained bilateral femoral and tibia fibula fractures. After review with orthopedic surgeon, patient opted for nonsurgical management. She is currently managed as follows: 1. Bilateral multiple lower extremity fractures involving bilateral femur, tibia and fibula -Closed fractures, patient has opted for non surgical mgt / s/p splinting in ER / NWB for at least 12 weeks per Ortho -No neurologic vascular deficits -Patient had had a prior fracture to her right distal femur which was managed nonoperatively. 2. Severe bilateral lower extremity pain secondary to #1:improved 3. Severe sepsis with septic shock likely 2/2 UTI -Patient has penicillin allergy, but she is able to tolerate ceftriaxone -We will also get ID consult 4. End-stage renal disease on hemodialysis -Continue routine hemodialysis as tolerated per nephro. Systemic shock may be a limiting concern 5. Chronic hypochromic anemia likely secondary to kidney disease -Secondary to iron deficiency -Intravenous iron replacement for 5 days 6. Chronically wheelchair-bound, nonambulant from prior spinal injury/spinal bifida 7. History of hypertension currently borderline hypotensive -We will hold/DC all prior antihypertensives 8. History of pulmonary fibrosis -No concern for acute exacerbation at this time, continue home inhalers and as needed rescue bronchodilators 9. Diabetes mellitus type 2 on insulin -Patient is currently exhibiting suboptimal control on current regimen, will adjust based on requirements over the last 24 hours Dispo: -Continue ICU mgt and care,wean pressors as tolerated and f/u final cultures,continue empiric abx . -Had previously discussed [facility] facility placement with patient as patient is home with her mother who is in her 80s and her sister. Patient is not exactly amenable to SNF placement at this time, she will discuss with her family however. Prophylaxis: Heparin / Pepcid CRITICAL CARE TIME: >35 mins of which more than half was spent at the bedside and during counselling Result Diagram: 04/05/19 1004 04/05/19 0422 Results 24hrs Laboratory Tests Test 04/05/19 02:21 04/05/19 04:22 04/05/19 05:23 04/05/19 05:49 Bedside Glucose 136 120 114 White Blood Count 15.5 H Red Blood Count 2.51 L Hemoglobin 7.2 L Hematocrit 23.8 L Mean Corpuscular 94.8 Volume Mean Corpuscular 28.7 L Hemoglobin Mean Corpuscular 30.3 L Hemoglobin Concent Red Cell 16.6 H Distribution Width Platelet Count 201 Mean Platelet Volume 13.6 H Immature 2.300 H Granulocytes % Neutrophils % 80.5 H Lymphocytes % 8.9 L Monocytes % 5.4 Eosinophils % 2.5 Basophils % 0.4 Nucleated Red Blood 0.0 Cells % Immature 0.360 H Granulocytes # Neutrophils # 12.5 H Lymphocytes # 1.4 Monocytes # 0.8 Eosinophils # 0.4 Basophils # 0.1 Nucleated Red Blood 0.0 Cells # Sodium Level 133 L Potassium Level 5.8 H Chloride Level 95 L Carbon Dioxide Level 27 Anion Gap 11 Blood Urea Nitrogen 44 #H Creatinine 3.71 H Est Glomerular 13 L Filtrat Rate mL/min Glucose Level 108 # Lactic Acid Level 0.9 Calcium Level 7.8 L Total Bilirubin 0.3 Direct Bilirubin 0.00 Indirect Bilirubin 0.3 Aspartate Amino 13 L Transf (AST/SGOT) Alanine 20 Aminotransferase (AL T/SGPT) Alkaline Phosphatase 91 Total Protein 5.0 L Albumin 2.5 L Globulin 2.50 Albumin/Globulin 1.00 Ratio Test 04/05/19 06:30 04/05/19 07:53 04/05/19 10:04 04/05/19 11:57 Urine Color YELLOW Urine Clarity TURBID A Urine pH 6.0 Urine Specific 1.023 Mozier Urine Ketones NEGATIVE Urine Nitrite NEGATIVE Urine Bilirubin NEGATIVE Urine Urobilinogen NEGATIVE Urine Leukocyte 1+ H Esterase Urine Microscopic 85 H RBC Urine Microscopic > 182 H WBC Urine Squamous FEW Epithelial Cells Urine Bacteria FEW A Urine Hemoglobin 1+ H Urine Glucose NEGATIVE Urine Total Protein 2+ H Bedside Glucose 108 89 White Blood Count 16.6 H Red Blood Count 2.69 L Hemoglobin 7.8 L Hematocrit 25.6 L Mean Corpuscular 95.2 Volume Mean Corpuscular 29.0 Hemoglobin Mean Corpuscular 30.5 L Hemoglobin Concent Red Cell 16.5 H Distribution Width Platelet Count 225 Mean Platelet Volume 13.2 H Immature 2.700 H Granulocytes % Neutrophils % 79.7 H Lymphocytes % 9.6 L Monocytes % 5.1 Eosinophils % 2.5 Basophils % 0.4 Nucleated Red Blood 0.0 Cells % Immature 0.450 H Granulocytes # Neutrophils # 13.3 H Lymphocytes # 1.6 Monocytes # 0.9 Eosinophils # 0.4 Basophils # 0.1 Nucleated Red Blood 0.0 Cells # Lactic Acid Level 0.7 Iron Level 23 L Total Iron Binding 163 L Capacity Percent Iron 14 L Saturation Ferritin 969.0 H Hepatitis B Surface NEGATIVE Antigen Hepatitis B Surface NEGATIVE Antibody Test 04/05/19 18:21 04/05/19 21:36 Bedside Glucose 73 122 Exam/Review of Systems Exam Vitals Vital Signs Date Temp Pulse Resp B/P (MAP) Pulse Ox O2 O2 Flow FiO2 Time Delivery Rate 04/05/19 79 22:25 04/05/19 95 3.0 31 20:59 04/05/19 18 98/62 (74) Nasal 20:40 Cannula 04/05/19 98.6 20:00 Intake and Output 04/04/19 04/04/19 04/05/19 1515:00 23:00 07:00 IntakeIntake Total 120 ml 320 ml 134.37 ml BalanceBalance 120 ml 320 ml 134.37 ml Results Results 24hrs Laboratory Tests Test 04/05/19 02:21 04/05/19 04:22 04/05/19 05:23 04/05/19 05:49 Bedside Glucose 136 120 114 White Blood Count 15.5 H Red Blood Count 2.51 L Hemoglobin 7.2 L Hematocrit 23.8 L Mean Corpuscular 94.8 Volume Mean Corpuscular 28.7 L Hemoglobin Mean Corpuscular 30.3 L Hemoglobin Concent Red Cell 16.6 H Distribution Width Platelet Count 201 Mean Platelet Volume 13.6 H Immature 2.300 H Granulocytes % Neutrophils % 80.5 H Lymphocytes % 8.9 L Monocytes % 5.4 Eosinophils % 2.5 Basophils % 0.4 Nucleated Red Blood 0.0 Cells % Immature 0.360 H Granulocytes # Neutrophils # 12.5 H Lymphocytes # 1.4 Monocytes # 0.8 Eosinophils # 0.4 Basophils # 0.1 Nucleated Red Blood 0.0 Cells # Sodium Level 133 L Potassium Level 5.8 H Chloride Level 95 L Carbon Dioxide Level 27 Anion Gap 11 Blood Urea Nitrogen 44 #H Creatinine 3.71 H Est Glomerular 13 L Filtrat Rate mL/min Glucose Level 108 # Lactic Acid Level 0.9 Calcium Level 7.8 L Total Bilirubin 0.3 Direct Bilirubin 0.00 Indirect Bilirubin 0.3 Aspartate Amino 13 L Transf (AST/SGOT) Alanine 20 Aminotransferase (AL T/SGPT) Alkaline Phosphatase 91 Total Protein 5.0 L Albumin 2.5 L Globulin 2.50 Albumin/Globulin 1.00 Ratio Test 04/05/19 06:30 04/05/19 07:53 04/05/19 10:04 04/05/19 11:57 Urine Color YELLOW Urine Clarity TURBID A Urine pH 6.0 Urine Specific 1.023 Mozier Urine Ketones NEGATIVE Urine Nitrite NEGATIVE Urine Bilirubin NEGATIVE Urine Urobilinogen NEGATIVE Urine Leukocyte 1+ H Esterase Urine Microscopic 85 H RBC Urine Microscopic > 182 H WBC Urine Squamous FEW Epithelial Cells Urine Bacteria FEW A Urine Hemoglobin 1+ H Urine Glucose NEGATIVE Urine Total Protein 2+ H Bedside Glucose 108 89 White Blood Count 16.6 H Red Blood Count 2.69 L Hemoglobin 7.8 L Hematocrit 25.6 L Mean Corpuscular 95.2 Volume Mean Corpuscular 29.0 Hemoglobin Mean Corpuscular 30.5 L Hemoglobin Concent Red Cell 16.5 H Distribution Width Platelet Count 225 Mean Platelet Volume 13.2 H Immature 2.700 H Granulocytes % Neutrophils % 79.7 H Lymphocytes % 9.6 L Monocytes % 5.1 Eosinophils % 2.5 Basophils % 0.4 Nucleated Red Blood 0.0 Cells % Immature 0.450 H Granulocytes # Neutrophils # 13.3 H Lymphocytes # 1.6 Monocytes # 0.9 Eosinophils # 0.4 Basophils # 0.1 Nucleated Red Blood 0.0 Cells # Lactic Acid Level 0.7 Iron Level 23 L Total Iron Binding 163 L Capacity Percent Iron 14 L Saturation Ferritin 969.0 H Hepatitis B Surface NEGATIVE Antigen Hepatitis B Surface NEGATIVE Antibody Test 04/05/19 18:21 04/05/19 21:36 Bedside Glucose 73 122 Medications Medication Current Medications IV Flush (NS 3 ml) 3 ml PER PROTOCOL IV ; Start 04/03/19 at 21:00 Acetaminophen (Tylenol Tab) 650 mg Q6H PRN PO .PAIN 1-3 OR TEMP Last administered on 04/05/19 03:59; Admin Dose 650 MG; Start 04/03/19 at 21:00 Morphine Sulfate (morphine) 2 mg Q4H PRN IV .SEVERE PAIN 7-10 Last administered on 04/03/19at 22:59; Admin Dose 2 MG; Start 04/03/19 at 21:00 Docusate Sodium (Colace) 100 mg Q12H PRN PO .CONSTIPATION; Start 04/03/19 at 21:00 Bisacodyl (Dulcolax) 5 mg DAILY PRN PO .CONSTIPATION; Start 04/03/19 at 21:00 Hydromorphone HCl (Dilaudid) 0.5 mg Q4 PRN IV PAIN LEVEL 6-10 Last administered on 04/05/19at 14:03; Admin Dose 0.5 MG; Start 04/03/19 at 22:00 Ondansetron HCl (Zofran Inj) 4 mg Q4H PRN IV NAUSEA/VOMITING Last administered on 04/05/19at 18:15; Admin Dose 4 MG; Start 04/04/19 at 01:00 Diagnostic Test (Pha) (Accu-Chek) 1 ea 02 XX ; Start 04/05/19 at 02:00 Insulin Aspart (Novolog Insulin Pen) NOVOLOG *MILD* ALGORITHM WITH MEALS BEDTIME SC Last administered on 04/04/19at 17:24; Admin Dose 1 UNIT; Start 04/04/19 at 08:00 Miscellaneous Information 1 ea NOTE XX ; Start 04/04/19 at 04:30 Glucose (Glutose) 15 gm Q15M PRN PO DECREASED GLUCOSE; Start 04/04/19 at 04:30 Glucose (Glutose) 22.5 gm Q15M PRN PO DECREASED GLUCOSE; Start 04/04/19 at 04:30 Dextrose (D50w Syringe) 25 ml Q15M PRN IV DECREASED GLUCOSE; Start 04/04/19 at 04:30 Dextrose (D50w Syringe) 50 ml Q15M PRN IV DECREASED GLUCOSE; Start 04/04/19 at 04:30 Glucagon (Glucagen) 1 mg Q15M PRN IM DECREASED GLUCOSE; Start 04/04/19 at 04:30 Glucose (Glutose) 15 gm Q15M PRN BUCCAL DECREASED GLUCOSE; Start 04/04/19 at 04:30 Miscellaneous Information (Pending Santyl Order For Wound Care) This patient smith... PRN PRN XX WOUND CARE; Start 04/04/19 at 07:00 Amlodipine Besylate (Norvasc) 10 mg DAILY PO ; Start 04/05/19 at 09:00 Aspirin (Aspirin) 81 mg DAILY PO Last administered on 04/05/19at 09:03; Admin Dose 81 MG; Start 04/05/19 at 09:00 Carvedilol (Coreg) 12.5 mg BID PO Last administered on 04/04/19at 20:20; Admin Dose 12.5 MG; Start 04/04/19 at 21:00 Clonidine (Catapres) 0.1 mg Q8H PRN PO SBP ABOVE 160; Start 04/04/19 at 09:30 Ferrous Sulfate (Ferrous Sulfate (Ec)) 325 mg BID PO Last administered on 04/05/19at 09:02; Admin Dose 325 MG; Start 04/04/19 at 21:00 Hydralazine HCl (Apresoline) 25 mg DAILY PO ; Start 04/05/19 at 09:00 Insulin Glargine (Lantus) 22 units QHS SC Last administered on 04/05/19at 21:41; Admin Dose 22 UNITS; Start 04/04/19 at 21:00 Montelukast Sodium (Singulair) 10 mg DAILY PO Last administered on 04/05/19at 09:02; Admin Dose 10 MG; Start 04/05/19 at 09:00 Arformoterol Tartrate (Brovana (Neb)) 2 ml BID RESP THERAPY INH Last administered on 04/05/19at 20:25; Admin Dose 2 ML; Start 04/04/19 at 20:00 Budesonide (Pulmicort (Neb)) 0.5 mg BID RESP THERAPY INH Last administered on 04/05/19 20:25; Admin Dose 0.5 MG; Start 04/04/19 at 20:00 Insulin Aspart (Novolog Insulin Pen) 7 unit WITH MEALS SC Last administered on 04/05/19 09:57; Admin Dose 7 UNIT; Start 04/04/19 at 17:35 Morphine Sulfate (Ms Contin (Er)) 15 mg BID PO Last administered on 04/05/19 0 9:03; Admin Dose 15 MG; Start 04/04/19 at 14:30; Stop 04/11/19 at 14:29 Docusate Sodium (Colace) 100 mg BID PO Last administered on 04/05/19 09:02; Admin Dose 100 MG; Start 04/04/19 at 21:00 Polyethylene Glycol (Miralax) 8.5 gm DAILY PO Last administered on 04/05/19 09:03; Admin Dose 8.5 GM; Start 04/05/19 at 09:00 Heparin Sodium (Porcine) (Heparin (5000 Units/1ml)) 5,000 unit BID SC Last adm inistered on 04/05/19 21:42; Admin Dose 5,000 UNIT; Start 04/05/19 at 09:00 Diphenhydramine HCl (Benadryl) 25 mg Q8H PRN IV Itching Last administered on 04/05/19 09:02; Admin Dose 25 MG; Start 04/04/19 at 22:00 Vancomycin HCl (Vanco Iv Per Pharmacy) VANCOMYCIN PER PHARMACY PER PROTOCOL XX ; Start 04/05/19 at 04:00 Ceftriaxone Sodium 50 ml @ 100 mls/hr Q24H IVPB Last administered on 04/05/19 05:08; Admin Dose 100 MLS/HR; Start 04/05/19 at 04:00 Epoetin Randolph-epbx (Retacrit (Esrd)) 10,000 unit [id number]@[id number] SC Last administered on 04/05/19 18:16; Admin Dose 10,000 UNIT; Start 04/05/19 at 17:00 Norepinephrine 250 ml @ 1.875 mls/ hr TITRATE IV ; Start 04/05/19 at 19:00 Albumin Human 100 ml @ 100 mls/hr Q8H IV ; Start 04/05/19 at 20:00; Stop 04/06/19 at 12:59 LIZZ SPANGLER April 05, 2019 22:40
[2019-04-06] VITALS (48 sets, daily range): BP systolic 84–150; BP diastolic 46–89; PULSE 70–91; RESP 13–27
[2019-04-06] MEDS: HEPARIN 1000 UNITS/ML 10 ML INJ CATHETER SCH (00:02)
[2019-04-06] MEDS: DOCUSATE SODIUM 100 MG CAP PO SCH ×3 (00:06→21:52)
[2019-04-06] MEDS: ALBUMIN HUMAN 25% 100 ML IV SCH ×3 (00:07→11:41)
[2019-04-06] MEDS: ACCU-CHEK XX SCH (02:00)
[2019-04-06] MEDS: CEFTRIAXONE 2 GM/50 ML (PMX) 50 ML IVPB SCH (04:13)
[2019-04-06] MEDS: INSULIN ASPART [NOVOLOG] 3 ML PEN SC SCH ×6 (07:35→21:00)
[2019-04-06] MEDS ORDERED: INSULIN ASPART [NOVOLOG] 3 ML PEN SC SCH (07:35)
[2019-04-06] MEDS ORDERED: INSULIN GLARGINE [LANTus] (100 UNITS/ML) SYG SC ONE (08:00)
--- NOTE | 2019-04-06 08:38 | PN ---
Date/Time of Note Date/Time of Note DATE: 04/06/19 TIME: 08:31 Assessment/Plan VTE Prophylaxis Risk score (from Ns)>0 risk: 10 SCD applied (from Ns): No SCD contraindicated: bilateral LE trauma Pharmacological prophylaxis: heparin Lines/Catheters IV [facility]ter [facility]from [facility] Mid Line Urinary Cath still in place: Yes Reason Cath still needed: urinary retention (Spina bifida) Assessment/Plan Problems: (1) Gram positive septicemia Status: Acute Comment: She was placed on vancomycin yesterday with pharmaceutical dosing for renal failure. Fine-tune based on culture reports given the patient's allergy status (2) Fracture of femur, distal, left, closed Status: Acute Comment: Orthopedics has seen the patient in place patient in a long-leg cast. She is at risk for pulmonary embolism but we have to balance versus the new an emia Qualifiers: Encounter type: initial encounter Fracture morphology: unspecified fracture morphology Qualified Codes: S72.402A - Unspecified fracture of lower end of left femur, initial encounter for closed fracture (3) Closed fracture of right proximal tibia Status: Acute Comment: As per orthopedics and in bracing Qualifiers: Encounter type: initial encounter Fracture morphology: unspecified fracture morphology Qualified Codes: S82.101A - Unspecified fracture of upper end of right tibia, initial encounter for closed fracture (4) Spina bifida Status: Chronic Comment: Noted. Qualifiers: Spinal region: lumbar Presence of hydrocephalus: without hydrocephalus Qualified Codes: Q05.7 - Lumbar spina bifida without hydrocephalus (5) End stage renal disease on dialysis Status: Chronic Comment: As per nephrology. She does have bone and mineral issues with this. She also has anemia of chronic disease aggravated by a modest iron deficiency (6) Horseshoe kidney Status: Chronic Comment: Noted. (7) Essential hypertension Status: Chronic Comment: At this time she is hypotensive. I am checking cortisol to make sure she does not have adrenal insufficiency which is of low likelihood but needs to be ruled out (8) Diabetes mellitus type 2 in nonobese Status: Chronic Comment: She is on higher dosages of insulin here than she was at home. I will adjust her regimen (9) Hyperlipidemia associated with type 2 diabetes mellitus Status: Chronic Comment: Noted. (10) Chronic pain due to injury Status: Chronic Comment: Noted. Trial with gabapentin 1 more stable (11) Anemia Status: Chronic Comment: An element of iron deficiency anemia is also present. In addition she has had a brisk drop in hemoglobin can recheck her labs now if necessary she will be transfused Qualifiers: Anemia type: due to chronic kidney disease (12) Pressure injury of left ischium, stage 3 (13) Pulmonary fibrosis (14) Closed fracture of distal end of right femur Status: Chronic Result Diagram: 04/06/19 0459 04/06/19 0459 Results 24hrs Laboratory Tests Test 04/05/19 10:04 04/05/19 11:57 04/05/19 18:21 04/05/19 21:36 White Blood Count 16.6 H Red Blood Count 2.69 L Hemoglobin 7.8 L Hematocrit 25.6 L Mean Corpuscular 95.2 Volume Mean Corpuscular 29.0 Hemoglobin Mean Corpuscular 30.5 L Hemoglobin Concent Red Cell 16.5 H Distribution Width Platelet Count 225 Mean Platelet Volume 13.2 H Immature 2.700 H Granulocytes % Neutrophils % 79.7 H Lymphocytes % 9.6 L Monocytes % 5.1 Eosinophils % 2.5 Basophils % 0.4 Nucleated Red Blood 0.0 Cells % Immature 0.450 H Granulocytes # Neutrophils # 13.3 H Lymphocytes # 1.6 Monocytes # 0.9 Eosinophils # 0.4 Basophils # 0.1 Nucleated Red Blood 0.0 Cells # Lactic Acid Level 0.7 Iron Level 23 L Total Iron Binding 163 L Capacity Percent Iron 14 L Saturation Ferritin 969.0 H Hepatitis B Surface NEGATIVE Antigen Hepatitis B Surface NEGATIVE Antibody Bedside Glucose 89 73 122 Test 04/06/19 04:59 04/06/19 08:06 White Blood Count 11.2 #H Red Blood Count 2.15 #L Hemoglobin 6.2 #*L Hematocrit 20.4 #L Mean Corpuscular 94.9 Volume Mean Corpuscular 28.8 L Hemoglobin Mean Corpuscular 30.4 L Hemoglobin Concent Red Cell 16.0 H Distribution Width Platelet Count 190 Mean Platelet Volume 14.0 H Immature 2.000 H Granulocytes % Neutrophils % Lymphocytes % Monocytes % Eosinophils % Basophils % Nucleated Red Blood 0.0 Cells % Immature 0.230 H Granulocytes # Neutrophils # Lymphocytes # Monocytes # Eosinophils # Basophils # Nucleated Red Blood Cells # Sodium Level 134 L Potassium Level 4.2 Chloride Level 98 Carbon Dioxide Level 28 Anion Gap 8 Blood Urea Nitrogen 19 # Creatinine 2.06 #H Est Glomerular 25 L Filtrat Rate mL/min Glucose Level 81 Calcium Level 8.1 L Phosphorus Level 5.7 H Magnesium Level 1.9 Bedside Glucose 68 L CC: REE HOWARD MD; GEMMA ATKINSON DO ; Subjective 24 Hr Interval Summary Free Text/Dictation Pleasant woman who reports she is having her chronic pain. Constitutional: no complaints (She denies fevers, chills, sweats (please see blood culture reports)) ENT: no complaints Respiratory: shortness of breath (Change in her baseline breathing) Cardiovascular: no complaints Gastrointestinal: no complaints (Denies abdominal pain nausea vomiting) Musculoskeletal: back pain, other (Bilateral leg pain) Neurologic: other (Chronic pain) Endocrine: no complaints Exam/Review of Systems Exam Vitals Vital Signs Date Temp Pulse Resp B/P (MAP) Pulse Ox O2 O2 Flow FiO2 Time Delivery Rate 04/06/19 87 08:00 04/06/19 Nasal 4.0 07:23 Cannula 04/06/19 22 96/52 (67) 98 06:15 04/06/19 98.6 04:00 04/06/19 31 01:47 Intake and Output 04/05/19 04/05/19 04/06/19 1515:00 23:00 07:00 IntakeIntake Total 678.995 ml 344.25 ml 452.385 ml OutputOutput Total 10 ml 10 ml 410 ml BalanceBalance 668.995 ml 334.25 ml 42.385 ml Exam Depressed female lying in bed Constitutional: alert, oriented Psych: depression Head: normocephalic, atraumatic Neck: supple, non-tender Respiratory: normal air movement, crackles/rales Cardiovascular: regular rate and rhythm, nl pulses Gastrointestinal: soft, nl liver, spleen, non-tender Extremities: other (Bilateral fiberglass cast full-length) Results Results 24hrs Laboratory Tests Test 04/05/19 10:04 04/05/19 11:57 04/05/19 18:21 04/05/19 21:36 White Blood Count 16.6 H Red Blood Count 2.69 L Hemoglobin 7.8 L Hematocrit 25.6 L Mean Corpuscular 95.2 Volume Mean Corpuscular 29.0 Hemoglobin Mean Corpuscular 30.5 L Hemoglobin Concent Red Cell 16.5 H Distribution Width Platelet Count 225 Mean Platelet Volume 13.2 H Immature 2.700 H Granulocytes % Neutrophils % 79.7 H Lymphocytes % 9.6 L Monocytes % 5.1 Eosinophils % 2.5 Basophils % 0.4 Nucleated Red Blood 0.0 Cells % Immature 0.450 H Granulocytes # Neutrophils # 13.3 H Lymphocytes # 1.6 Monocytes # 0.9 Eosinophils # 0.4 Basophils # 0.1 Nucleated Red Blood 0.0 Cells # Lactic Acid Level 0.7 Iron Level 23 L Total Iron Binding 163 L Capacity Percent Iron 14 L Saturation Ferritin 969.0 H Hepatitis B Surface NEGATIVE Antigen Hepatitis B Surface NEGATIVE Antibody Bedside Glucose 89 73 122 Test 04/06/19 04:59 04/06/19 08:06 White Blood Count 11.2 #H Red Blood Count 2.15 #L Hemoglobin 6.2 #*L Hematocrit 20.4 #L Mean Corpuscular 94.9 Volume Mean Corpuscular 28.8 L Hemoglobin Mean Corpuscular 30.4 L Hemoglobin Concent Red Cell 16.0 H Distribution Width Platelet Count 190 Mean Platelet Volume 14.0 H Immature 2.000 H Granulocytes % Neutrophils % Lymphocytes % Monocytes % Eosinophils % Basophils % Nucleated Red Blood 0.0 Cells % Immature 0.230 H Granulocytes # Neutrophils # Lymphocytes # Monocytes # Eosinophils # Basophils # Nucleated Red Blood Cells # Sodium Level 134 L Potassium Level 4.2 Chloride Level 98 Carbon Dioxide Level 28 Anion Gap 8 Blood Urea Nitrogen 19 # Creatinine 2.06 #H Est Glomerular 25 L Filtrat Rate mL/min Glucose Level 81 Calcium Level 8.1 L Phosphorus Level 5.7 H Magnesium Level 1.9 Bedside Glucose 68 L Medications Medication Current Medications IV Flush (NS 3 ml) 3 ml PER PROTOCOL IV ; Start 04/03/19 at 21:00 Acetaminophen (Tylenol Tab) 650 mg Q6H PRN PO .PAIN 1-3 OR TEMP Last administered on 04/05/19at 03:59; Admin Dose 650 MG; Start 04/03/19 at 21:00 Morphine Sulfate (morphine) 2 mg Q4H PRN IV .SEVERE PAIN 7-10 Last administered on 04/03/19at 22:59; Admin Dose 2 MG; Start 04/03/19 at 21:00 Docusate Sodium (Colace) 100 mg Q12H PRN PO .CONSTIPATION; Start 04/03/19 at 21:00 Bisacodyl (Dulcolax) 5 mg DAILY PRN PO .CONSTIPATION; Start 04/03/19 at 21:00 Hydromorphone HCl (Dilaudid) 0.5 mg Q4 PRN IV PAIN LEVEL 6-10 Last administered on 04/05/19at 14:03; Admin Dose 0.5 MG; Start 04/03/19 at 22:00 Ondansetron HCl (Zofran Inj) 4 mg Q4H PRN IV NAUSEA/VOMITING Last administered on 04/05/19at 18:15; Admin Dose 4 MG; Start 04/04/19 at 01:00 Diagnostic Test (Pha) (Accu-Chek) 1 ea 02 XX ; Start 04/05/19 at 02:00 Insulin Aspart (Novolog Insulin Pen) NOVOLOG *MILD* ALGORITHM WITH MEALS BEDTIME SC Last administered on 04/04/19at 17:24; Admin Dose 1 UNIT; Start 04/04/19 at 08:00 Miscellaneous Information 1 ea NOTE XX ; Start 04/04/19 at 04:30 Glucose (Glutose) 15 gm Q15M PRN PO DECREASED GLUCOSE; Start 04/04/19 at 04:30 Glucose (Glutose) 22.5 gm Q15M PRN PO DECREASED GLUCOSE; Start 04/04/19 at 04:30 Dextrose (D50w Syringe) 25 ml Q15M PRN IV DECREASED GLUCOSE; Start 04/04/19 at 04:30 Dextrose (D50w Syringe) 50 ml Q15M PRN IV DECREASED GLUCOSE; Start 04/04/19 at 04:30 Glucagon (Glucagen) 1 mg Q15M PRN IM DECREASED GLUCOSE; Start 04/04/19 at 04:30 Glucose (Glutose) 15 gm Q15M PRN BUCCAL DECREASED GLUCOSE; Start 04/04/19 at 04:30 Miscellaneous Information (Pending [facility] Order For Wound Care) This patient smith... PRN PRN XX WOUND CARE; Start 04/04/19 at 07:00 Aspirin (Aspirin) 81 mg DAILY PO Last administered on 04/05/19at 09:03; Admin Dose 81 MG; Start 04/05/19 at 09:00 Clonidine (Catapres) 0.1 mg Q8H PRN PO SBP ABOVE 160; Start 04/04/19 at 09:30 Montelukast Sodium (Singulair) 10 mg DAILY PO Last administered on 04/05/19 09:02; Admin Dose 10 MG; Start 04/05/19 at 09:00 Arformoterol Tartrate (Brovana (Neb)) 2 ml BID RESP THERAPY INH Last administered on 04/05/19 20:25; Admin Dose 2 ML; Start 04/04/19 at 20:00 Budesonide (Pulmicort (Neb)) 0.5 mg BID RESP THERAPY INH Last administered on 04/05/19 20:25; Admin Dose 0.5 MG; Start 04/04/19 at 20:00 Docusate Sodium (Colace) 100 mg BID PO Last administered on 04/06/19 00:06; Admin Dose 100 MG; Start 04/04/19 at 21:00 Polyethylene Glycol (Miralax) 8.5 gm DAILY PO Last administered on 04/05/19 09:03; Admin Dose 8.5 GM; Start 04/05/19 at 09:00 Heparin Sodium (Porcine) (Heparin (5000 Units/1ml)) 5,000 unit BID SC Last administered on 04/05/19 21:42; Admin Dose 5,000 UNIT; Start 04/05/19 at 09:00 Diphenhydramine HCl (Benadryl) 25 mg Q8H PRN IV Itching Last administered on 04/05/19 09:02; Admin Dose 25 MG; Start 04/04/19 at 22:00 Vancomycin HCl (Vanco Iv Per Pharmacy) VANCOMYCIN PER PHARMACY PER PROTOCOL XX ; Start 04/05/19 at 04:00 Ceftriaxone Sodium 50 ml @ 100 mls/hr Q24H IVPB Last administered on 04/06/19 04:13; Admin Dose 100 MLS/HR; Start 04/05/19 at 04:00 Epoetin Randolph-epbx (Retacrit (Esrd)) 10,000 unit MoWeFr@1700 SC Last administered on 04/05/19 18:16; Admin Dose 10,000 UNIT; Start 04/05/19 at 17:00 Norepinephrine 250 ml @ 1.875 mls/ hr TITRATE IV Last administered on 04/06/19 00:10; Admin Dose 18.75 MLS/HR; Start 04/05/19 at 19:00 Albumin Human 100 ml @ 100 mls/hr Q8H IV Last administered on 04/06/19at 05:01; Admin Dose 100 MLS/HR; Start 04/05/19 at 20:00; Stop 04/06/19 at 12:59 Heparin Sodium (Porcine) (Heparin (1000 Units/ml)) 2,800 unit AFTER DIALYSIS CATHETER Last administered on 04/06/19at 00:02; Admin Dose 2,800 UNIT; Start 04/05/19 at 22:30 Insulin Aspart (Novolog Insulin Pen) 8 unit WITH MEALS SC ; Start 04/06/19 at 07:35 Insulin Glargine (Lantus) 28 units QHS SC ; Start 04/06/19 at 21:00 Midodrine (Proamatine) 5 mg TID@09,13,17 PO ; Start 04/06/19 at 09:00 Atorvastatin Calcium (Lipitor) 20 mg HS PO ; Start 04/06/19 at 21:00 Ferric Sodium Gluconate Complex 125 mg/Sodium Chloride 110 ml @ 110 mls/hr DAILY@1300 IVPB ; Start 04/06/19 at 13:00; Stop 04/10/19 at 13:59 Famotidine (Pepcid) 20 mg DAILY PO ; Start 04/06/19 at 09:00 BLAS GTZ MD Apr 06, 2019 08:38
[2019-04-06] MEDS: MIDODRINE 5 MG TAB PO SCH ×3 (08:46→17:00)
[2019-04-06] MEDS: FAMOTIDINE 20 MG TAB PO SCH (08:46)
[2019-04-06] MEDS: ACETAMINOPHEN 325 MG TAB PO PRN (08:46)
[2019-04-06] MEDS: ASPIRIN 81 MG TAB PO SCH (08:46)
[2019-04-06] MEDS: MONTELUKAST 10 MG TAB PO SCH (08:46)
[2019-04-06] MEDS: HEPARIN 5,000 UNIT/1 ML VIAL SC SCH ×2 (09:00→21:00)
[2019-04-06] MEDS: POLYETHYLENE GLYCOL 17 GM PACKET PO SCH (09:19)
[2019-04-06] MEDS: HYDROmorphONE 0.5 MG/0.5 ML SYG IV PRN (10:12)
--- NOTE | 2019-04-06 11:29 | CONS ---
Assessment/Plan Assessment/Plan Hospital Course (Demo Recall) 1. End-stage renal disease. The patient is on dialysis Monday, Monday, Monday. next planned HD on Monday but re-evaluate tomorrow if pt needs HD. 2. Hyperkalemia. improved 3. Anemia. Continue to monitor hemoglobin and hematocrit levels, epogen with HD and prbc as needed 4. Mineral bone disorder, monitor calcium and phosphorus levels. 5. Septic shock, etiology is bacteremia. cont abx. off pressors. 6. Bilateral lower extremity fractures. The patient is evaluated by orthopedist. The patient is status post cast placement. Continue to monitor. 7. History of spina bifida. Continue to monitor. 8. History of lumbar injury. Continue to monitor. 9. Diabetes. Continue current insulin regimen. Consultation Date/Type/Reason Admit Date/Time April 03, 2019 at 20:02 Initial Consult Date 04/04/19 Date/Time of Note DATE: 04/06/19 TIME: 11:26 24 HR Interval Summary Free Text/Dictation off pressors this morning denies shortness of breath or dizziness s/p hd yesterday d/w rn gen nad cv rrr pulm ctab abd soft, nd, nt +bs ext: b.l cast in place Exam/Review of Systems Exam Vitals Vital Signs Date Temp Pulse Resp B/P (MAP) Pulse Ox O2 O2 Flow FiO2 Time Delivery Rate 04/06/19 87 08:00 04/06/19 Nasal 4.0 07:23 Cannula 04/06/19 22 96/52 (67) 98 06:15 04/06/19 98.6 04:00 04/06/19 31 01:47 Intake and Output 04/05/19 04/05/19 04/06/19 1515:00 23:00 07:00 IntakeIntake Total 678.995 ml 344.25 ml 452.385 ml OutputOutput Total 10 ml 10 ml 410 ml BalanceBalance 668.995 ml 334.25 ml 42.385 ml Results Result Diagram: 04/06/19 0838 04/06/19 0459 Results 24hrs Laboratory Tests Test 04/05/19 11:57 04/05/19 18:21 04/05/19 21:36 04/06/19 04:59 Bedside Glucose 89 73 122 White Blood Count 11.2 #H Red Blood Count 2.15 #L Hemoglobin 6.2 #*L Hematocrit 20.4 #L Mean Corpuscular 94.9 Volume Mean Corpuscular 28.8 L Hemoglobin Mean Corpuscular 30.4 L Hemoglobin Concent Red Cell Distribution 16.0 H Width Platelet Count 190 Mean Platelet Volume 14.0 H Immature Granulocytes 2.000 H % Neutrophils % Segmented Neutrophils 85 H % (Manual) Band Neutrophils % 3 (Manual) Lymphocytes % Lymphocytes % 9 L (Manual) Monocytes % Monocytes % (Manual) 2 Eosinophils % Eosinophils % 1 (Manual) Basophils % Nucleated Red Blood 0.0 Cells % Immature Granulocytes 0.230 H # Neutrophils # Neutrophils # 9.6 H (Manual) Band Neutrophils # 0.3 Lymphocytes (Manual) 1.0 Lymphocytes # Monocytes # Monocytes # (Manual) 0.2 L Eosinophils # Basophils # Nucleated Red Blood Cells # Platelet Estimate NORMAL Giant Platelets 2 H Polychromasia 2+ Hypochromasia 1+ Anisocytosis 1+ Sodium Level 134 L Potassium Level 4.2 Chloride Level 98 Carbon Dioxide Level 28 Anion Gap 8 Blood Urea Nitrogen 19 # Creatinine 2.06 #H Est Glomerular 25 L Filtrat Rate mL/min Glucose Level 81 Calcium Level 8.1 L Phosphorus Level 5.7 H Magnesium Level 1.9 Test 04/06/19 08:06 04/06/19 08:38 04/06/19 09:14 04/06/19 10:08 Bedside Glucose 68 L 99 83 White Blood Count 11.1 H Red Blood Count 2.03 L Hemoglobin 5.8 *L Hematocrit 19.4 L Mean Corpuscular 95.6 Volume Mean Corpuscular 28.6 L Hemoglobin Mean Corpuscular 29.9 L Hemoglobin Concent Red Cell Distribution 15.9 H Width Platelet Count 173 Mean Platelet Volume 13.2 H Immature Granulocytes 1.600 H % Neutrophils % 81.9 H Lymphocytes % 9.6 L Monocytes % 4.7 Eosinophils % 1.8 Basophils % 0.4 Nucleated Red Blood 0.0 Cells % Immature Granulocytes 0.180 H # Neutrophils # 9.1 H Lymphocytes # 1.1 Monocytes # 0.5 Eosinophils # 0.2 Basophils # 0.0 Nucleated Red Blood 0.0 Cells # Random Cortisol 26.1 Medications Medication Current Medications IV Flush (NS 3 ml) 3 ml PER PROTOCOL IV ; Start 04/03/19 at 21:00 Acetaminophen (Tylenol Tab) 650 mg Q6H PRN PO .PAIN 1-3 OR TEMP Last administered on 04/06/19at 08:46; Admin Dose 650 MG; Start 04/03/19 at 21:00 Morphine Sulfate (morphine) 2 mg Q4H PRN IV .SEVERE PAIN 7-10 Last administered on 04/03/19at 22:59; Admin Dose 2 MG; Start 04/03/19 at 21:00 Docusate Sodium (Colace) 100 mg Q12H PRN PO .CONSTIPATION; Start 04/03/19 at 21:00 Bisacodyl (Dulcolax) 5 mg DAILY PRN PO .CONSTIPATION; Start 04/03/19 at 21:00 Hydromorphone HCl (Dilaudid) 0.5 mg Q4 PRN IV PAIN LEVEL 6-10 Last administered on 04/06/19at 10:12; Admin Dose 0.5 MG; Start 04/03/19 at 22:00 Ondansetron HCl (Zofran Inj) 4 mg Q4H PRN IV NAUSEA/VOMITING Last administered on 04/05/19at 18:15; Admin Dose 4 MG; Start 04/04/19 at 01:00 Diagnostic Test (Pha) (Accu-Chek) 1 ea 02 XX ; Start 04/05/19 at 02:00 Insulin Aspart (Novolog Insulin Pen) NOVOLOG *MILD* ALGORITHM WITH MEALS BEDTIME SC Last administered on 04/04/19at 17:24; Admin Dose 1 UNIT; Start 04/04/19 at 08:00 Miscellaneous Information 1 ea NOTE XX ; Start 04/04/19 at 04:30 Glucose (Glutose) 15 gm Q15M PRN PO DECREASED GLUCOSE; Start 04/04/19 at 04:30 Glucose (Glutose) 22.5 gm Q15M PRN PO DECREASED GLUCOSE; Start 04/04/19 at 04:30 Dextrose (D50w Syringe) 25 ml Q15M PRN IV DECREASED GLUCOSE; Start 04/04/19 at 04:30 Dextrose (D50w Syringe) 50 ml Q15M PRN IV DECREASED GLUCOSE; Start 04/04/19 at 04:30 Glucagon (Glucagen) 1 mg Q15M PRN IM DECREASED GLUCOSE; Start 04/04/19 at 04:30 Glucose (Glutose) 15 gm Q15M PRN BUCCAL DECREASED GLUCOSE; Start 04/04/19 at 04:30 Miscellaneous Information (Pending [facility]yl Order For Wound Care) This patient smith... PRN PRN XX WOUND CARE; Start 04/04/19 at 07:00 Aspirin (Aspirin) 81 mg DAILY PO Last administered on 04/06/19 08:46; Admin Dose 81 MG; Start 04/05/19 at 09:00; Status Hold Clonidine (Catapres) 0.1 mg Q8H PRN PO SBP ABOVE 160; Start 04/04/19 at 09:30 Montelukast Sodium (Singulair) 10 mg DAILY PO Last administered on 04/06/19 08:46; Admin Dose 10 MG; Start 04/05/19 at 09:00 Arformoterol Tartrate (Brovana (Neb)) 2 ml BID RESP THERAPY INH Last administered on 04/05/19 20:25; Admin Dose 2 ML; Start 04/04/19 at 20:00 Budesonide (Pulmicort (Neb)) 0.5 mg BID RESP THERAPY INH Last administered on 04/05/19 20:25; Admin Dose 0.5 MG; Start 04/04/19 at 20:00 Docusate Sodium (Colace) 100 mg BID PO Last administered on 04/06/19 08:46; Admin Dose 100 MG; Start 04/04/19 at 21:00 Polyethylene Glycol (Miralax) 8.5 gm DAILY PO Last administered on 04/06/19 09:19; Admin Dose 8.5 GM; Start 04/05/19 at 09:00 Heparin Sodium (Porcine) (Heparin (5000 Units/1ml)) 5,000 unit BID SC Last administered on 04/05/19at 21:42; Admin Dose 5,000 UNIT; Start 04/05/19 at 09:00; Status Hold Diphenhydramine HCl (Benadryl) 25 mg Q8H PRN IV Itching Last administered on 04/05/19 09:02; Admin Dose 25 MG; Start 04/04/19 at 22:00 Vancomycin HCl (Vanco Iv Per Pharmacy) VANCOMYCIN PER PHARMACY PER PROTOCOL XX ; Start 04/05/19 at 04:00 Ceftriaxone Sodium 50 ml @ 100 mls/hr Q24H IVPB Last administered on 04/06/19at 04:13; Admin Dose 100 MLS/HR; Start 04/05/19 at 04:00 Epoetin Randolph-epbx (Retacrit (Esrd)) 10,000 unit MoWeFr@1700 SC Last administered on 04/05/19at 18:16; Admin Dose 10,000 UNIT; Start 04/05/19 at 17:00 Norepinephrine 250 ml @ 1.875 mls/ hr TITRATE IV Last administered on 04/06/19at 00:10; Admin Dose 18.75 MLS/HR; Start 04/05/19 at 19:00 Albumin Human 100 ml @ 100 mls/hr Q8H IV Last administered on 04/06/19at 05:01; Admin Dose 100 MLS/HR; Start 04/05/19 at 20:00; Stop 04/06/19 at 12:59 Heparin Sodium (Porcine) (Heparin (1000 Units/ml)) 2,800 unit AFTER DIALYSIS CATHETER Last administered on 04/06/19at 00:02; Admin Dose 2,800 UNIT; Start 04/05/19 at 22:30 Midodrine (Proamatine) 5 mg TID@09,13,17 PO Last administered on 04/06/19at 08:46; Admin Dose 5 MG; Start 04/06/19 at 09:00 Atorvastatin Calcium (Lipitor) 20 mg HS PO ; Start 04/06/19 at 21:00 Ferric Sodium Gluconate Complex 125 mg/Sodium Chloride 110 ml @ 110 mls/hr DAILY@1300 IVPB ; Start 04/06/19 at 13:00; Stop 04/10/19 at 13:59 Famotidine (Pepcid) 20 mg DAILY PO Last administered on 04/06/19at 08:46; Admin Dose 20 MG; Start 04/06/19 at 09:00 Insulin Aspart (Novolog Insulin Pen) 4 unit WITH MEALS SC ; Start 04/06/19 at 11:30 Insulin Glargine (Lantus) 20 units QHS SC ; Start 04/06/19 at 21:00 Miscellaneous Information (*Rx Drug Level Order Reminder*) VANCO RANDOM 04/07 @ 0,500 0500 ONCE XX ; Start 04/07/19 at 05:00; Stop 04/07/19 at 05:01 ATIYA CALVIN MD Apr 06, 2019 11:29
[2019-04-06] MEDS: DIPHENHYDRAMINE 50 MG INJ IV PRN (11:39)
[2019-04-06] MEDS: ARFORMOTEROL TARTRATE 15MCG/2 ML AMP INH SCH ×2 (12:12→20:09)
[2019-04-06] MEDS: BUDESONIDE (NEB) 0.5MG/2ML AMP INH SCH ×2 (12:13→20:09)
[2019-04-06] MEDS: SOD FERRIC GLUC COMPLX 125 MG in SOD CHLORIDE 0.9% 100 ML IVPB SCH (13:00)
[2019-04-06] MEDS ORDERED: INSULIN GLARGINE [LANTus] (100 UNITS/ML) SYG SC SCH (21:00)
[2019-04-06] MEDS: ATORVASTATIN 20 MG TAB PO SCH (21:52)
[2019-04-06] MEDS: INSULIN GLARGINE [LANTus] (100 UNITS/ML) SYG SC SCH (22:01)
[2019-04-07] VITALS (14 sets, daily range): BP systolic 103–162; BP diastolic 46–90; PULSE 72–86; RESP 15–38
[2019-04-07] MEDS: ACCU-CHEK XX SCH (02:00)
[2019-04-07] MEDS: CEFTRIAXONE 2 GM/50 ML (PMX) 50 ML IVPB SCH (05:01)
[2019-04-07] MEDS: INSULIN ASPART [NOVOLOG] 3 ML PEN SC SCH ×7 (07:35→21:00)
[2019-04-07] MEDS ORDERED: LACTULOSE 30ML CUP PO ONE (08:30)
[2019-04-07] MEDS ORDERED: BISACODYL (EC) 5 MG TAB PO ONE (08:30)
[2019-04-07] MEDS ORDERED: BISACODYL (EC) 5 MG TAB PO PRN (08:30)
--- NOTE | 2019-04-07 08:30 | PN ---
Date/Time of Note Date/Time of Note DATE: 04/07/19 TIME: 08:27 Assessment/Plan VTE Prophylaxis Risk score (from [facility])>0 risk: 21 SCD applied (from [facility]): No SCD contraindicated: bilateral LE trauma Pharmacological prophylaxis: heparin Lines/Catheters IV Catheter Type (from [facility]): Mid Line Urinary Cath still in place: Yes Reason Cath still needed: urinary retention Assessment/Plan Problems: (1) Fracture of femur, distal, left, closed Status: Acute Comment: In a long-leg cast and stable. Orthopedics is following. Qualifiers: Encounter type: initial encounter Fracture morphology: unspecified fracture morphology Qualified Codes: S72.402A - Unspecified fracture of lower end of left femur, initial encounter for closed fracture (2) Closed fracture of right proximal tibia Status: Acute Comment: In long-leg cast and stable, orthopedics is following. Qualifiers: Encounter type: initial encounter Fracture morphology: unspecified fracture morphology Qualified Codes: S82.101A - Unspecified fracture of upper end of right tibia, initial encounter for closed fracture (3) Closed fracture of distal end of right femur Status: Chronic Comment: Noted. Qualifiers: Encounter type: subsequent encounter Fracture morphology: unspecified fracture morphology Fracture healing: with routine healing Qualified Codes: S72.401D - Unspecified fracture of lower end of right femur, subsequent encounter for closed fracture with routine healing (4) Spina bifida Status: Chronic Comment: Remains a chronic issue, and affects long-term prognosis. The patient has not been ambulatory but had been transferring before Qualifiers: Spinal region: lumbar Presence of hydrocephalus: without hydrocephalus Qualified Codes: Q05.7 - Lumbar spina bifida without hydrocephalus (5) Ambulatory dysfunction Status: Chronic Comment: Noted. (6) End stage renal disease on dialysis Status: Chronic Comment: As per nephrology, please see their note (7) Diabetes mellitus type 2 in nonobese Status: Chronic Comment: Adequate glycemic control (8) Essential hypertension Status: Chronic Comment: Adequate blood pressure control (9) Hyperlipidemia associated with type 2 diabetes mellitus Status: Chronic Comment: Adequate control (10) Gram positive septicemia Status: Acute Comment: On vancomycin (11) Anemia Status: Chronic Comment: Posttransfusion and stable Qualifiers: Anemia type: due to chronic kidney disease (12) Pressure injury of left ischium, stage 3 Status: Chronic Comment: Noted. Continue treatment wound care is seen the patient (13) Horseshoe kidney Status: Chronic Comment: Noted. Result Diagram: 04/07/19 0515 04/07/19 0515 Results 24hrs Laboratory Tests Test 04/06/19 08:38 04/06/19 09:14 04/06/19 10:08 04/06/19 11:45 White Blood Count 11.1 H Red Blood Count 2.03 L Hemoglobin 5.8 *L Hematocrit 19.4 L Mean Corpuscular Volume 95.6 Mean Corpuscular 28.6 L Hemoglobin Mean Corpuscular 29.9 L Hemoglobin Concent Red Cell Distribution 15.9 H Width Platelet Count 173 Mean Platelet Volume 13.2 H Immature Granulocytes % 1.600 H Neutrophils % 81.9 H Lymphocytes % 9.6 L Monocytes % 4.7 Eosinophils % 1.8 Basophils % 0.4 Nucleated Red Blood 0.0 Cells % Immature Granulocytes # 0.180 H Neutrophils # 9.1 H Lymphocytes # 1.1 Monocytes # 0.5 Eosinophils # 0.2 Basophils # 0.0 Nucleated Red Blood 0.0 Cells # Random Cortisol 26.1 Bedside Glucose 99 83 89 Test 04/06/19 16:06 04/06/19 17:54 04/06/19 21:51 04/07/19 00:18 Sodium Level 136 Potassium Level 4.6 Chloride Level 98 Carbon Dioxide Level 26 Anion Gap 12 Blood Urea Nitrogen 20 Creatinine 2.36 H Est Glomerular Filtrat 22 L Rate mL/min Glucose Level 83 Calcium Level 8.0 L Magnesium Level 1.8 Troponin I < 0.012 < 0.012 Bedside Glucose 84 105 Test 04/07/19 05:15 White Blood Count 8.8 # Red Blood Count 2.75 #L Hemoglobin 8.0 #L Hematocrit 24.9 #L Mean Corpuscular Volume 90.5 Mean Corpuscular 29.1 Hemoglobin Mean Corpuscular 32.1 Hemoglobin Concent Red Cell Distribution 17.1 H Width Platelet Count 189 Mean Platelet Volume 13.5 H Immature Granulocytes % 2.200 H Neutrophils % 72.0 Lymphocytes % 16.0 Monocytes % 7.4 Eosinophils % 1.6 Basophils % 0.8 Nucleated Red Blood 0.0 Cells % Immature Granulocytes # 0.190 H Neutrophils # 6.3 Lymphocytes # 1.4 Monocytes # 0.7 Eosinophils # 0.1 Basophils # 0.1 Nucleated Red Blood 0.0 Cells # Sodium Level 138 Potassium Level 4.5 Chloride Level 100 Carbon Dioxide Level 26 Anion Gap 12 Blood Urea Nitrogen 29 H Creatinine 3.25 H Est Glomerular Filtrat 15 L Rate mL/min Glucose Level 83 Calcium Level 8.1 L Random Vancomycin Level 11.4 Subjective 24 Hr Interval Summary Free Text/Dictation She had episode of chest pain yesterday with normal EKG and normal troponins. Constitutional: no complaints (Denies fevers chills or sweats) Respiratory: no complaints Cardiovascular: no complaints Gastrointestinal: no complaints Exam/Review of Systems Exam Vitals Vital Signs Date Temp Pulse Resp B/P (MAP) Pulse Ox O2 O2 Flow FiO2 Time Delivery Rate 04/07/19 79 26 131/48 100 Nasal 4.0 05:00 (75) Cannula 04/07/19 98.7 04:00 04/06/19 31 01:47 Intake and Output 04/06/19 04/06/19 04/07/19 1515:00 23:00 07:00 IntakeIntake Total 360 ml 345 ml 250 ml OutputOutput Total 15 ml 5 ml 10 ml BalanceBalance 345 ml 340 ml 240 ml Constitutional: alert, oriented Respiratory: clear to auscultation, normal air movement Cardiovascular: regular rate and rhythm, nl pulses Results Results 24hrs Laboratory Tests Test 04/06/19 08:38 04/06/19 09:14 04/06/19 10:08 04/06/19 11:45 White Blood Count 11.1 H Red Blood Count 2.03 L Hemoglobin 5.8 *L Hematocrit 19.4 L Mean Corpuscular Volume 95.6 Mean Corpuscular 28.6 L Hemoglobin Mean Corpuscular 29.9 L Hemoglobin Concent Red Cell Distribution 15.9 H Width Platelet Count 173 Mean Platelet Volume 13.2 H Immature Granulocytes % 1.600 H Neutrophils % 81.9 H Lymphocytes % 9.6 L Monocytes % 4.7 Eosinophils % 1.8 Basophils % 0.4 Nucleated Red Blood 0.0 Cells % Immature Granulocytes # 0.180 H Neutrophils # 9.1 H Lymphocytes # 1.1 Monocytes # 0.5 Eosinophils # 0.2 Basophils # 0.0 Nucleated Red Blood 0.0 Cells # Random Cortisol 26.1 Bedside Glucose 99 83 89 Test 04/06/19 16:06 04/06/19 17:54 04/06/19 21:51 04/07/19 00:18 Sodium Level 136 Potassium Level 4.6 Chloride Level 98 Carbon Dioxide Level 26 Anion Gap 12 Blood Urea Nitrogen 20 Creatinine 2.36 H Est Glomerular Filtrat 22 L Rate mL/min Glucose Level 83 Calcium Level 8.0 L Magnesium Level 1.8 Troponin I < 0.012 < 0.012 Bedside Glucose 84 105 Test 04/07/19 05:15 White Blood Count 8.8 # Red Blood Count 2.75 #L Hemoglobin 8.0 #L Hematocrit 24.9 #L Mean Corpuscular Volume 90.5 Mean Corpuscular 29.1 Hemoglobin Mean Corpuscular 32.1 Hemoglobin Concent Red Cell Distribution 17.1 H Width Platelet Count 189 Mean Platelet Volume 13.5 H Immature Granulocytes % 2.200 H Neutrophils % 72.0 Lymphocytes % 16.0 Monocytes % 7.4 Eosinophils % 1.6 Basophils % 0.8 Nucleated Red Blood 0.0 Cells % Immature Granulocytes # 0.190 H Neutrophils # 6.3 Lymphocytes # 1.4 Monocytes # 0.7 Eosinophils # 0.1 Basophils # 0.1 Nucleated Red Blood 0.0 Cells # Sodium Level 138 Potassium Level 4.5 Chloride Level 100 Carbon Dioxide Level 26 Anion Gap 12 Blood Urea Nitrogen 29 H Creatinine 3.25 H Est Glomerular Filtrat 15 L Rate mL/min Glucose Level 83 Calcium Level 8.1 L Random Vancomycin Level 11.4 Medications Medication Current Medications IV Flush (NS 3 ml) 3 ml PER PROTOCOL IV ; Start 04/03/19 at 21:00 Acetaminophen (Tylenol Tab) 650 mg Q6H PRN PO .PAIN 1-3 OR TEMP Last administered on 04/06/19at 08:46; Admin Dose 650 MG; Start 04/03/19 at 21:00 Morphine Sulfate (morphine) 2 mg Q4H PRN IV .SEVERE PAIN 7-10 Last administered on 04/03/19at 22:59; Admin Dose 2 MG; Start 04/03/19 at 21:00 Docusate Sodium (Colace) 100 mg Q12H PRN PO .CONSTIPATION; Start 04/03/19 at 21:00 Bisacodyl (Dulcolax) 5 mg DAILY PRN PO .CONSTIPATION; Start 04/03/19 at 21:00 Hydromorphone HCl (Dilaudid) 0.5 mg Q4 PRN IV PAIN LEVEL 6-10 Last administered on 04/06/19at 10:12; Admin Dose 0.5 MG; Start 04/03/19 at 22:00 Ondansetron HCl (Zofran Inj) 4 mg Q4H PRN IV NAUSEA/VOMITING Last administered on 04/05/19at 18:15; Admin Dose 4 MG; Start 04/04/19 at 01:00 Diagnostic Test (Pha) (Accu-Chek) 1 ea 02 XX ; Start 04/05/19 at 02:00 Insulin Aspart (Novolog Insulin Pen) NOVOLOG *MILD* ALGORITHM WITH MEALS BEDTIME SC Last administered on 04/04/19at 17:24; Admin Dose 1 UNIT; Start 04/04/19 at 08:00 Miscellaneous Information 1 ea NOTE XX ; Start 04/04/19 at 04:30 Glucose (Glutose) 15 gm Q15M PRN PO DECREASED GLUCOSE; Start 04/04/19 at 04:30 Glucose (Glutose) 22.5 gm Q15M PRN PO DECREASED GLUCOSE; Start 04/04/19 at 04: 30 Dextrose (D50w Syringe) 25 ml Q15M PRN IV DECREASED GLUCOSE; Start 04/04/19 at 04:30 Dextrose (D50w Syringe) 50 ml Q15M PRN IV DECREASED GLUCOSE; Start 04/04/19 at 04:30 Glucagon (Glucagen) 1 mg Q15M PRN IM DECREASED GLUCOSE; Start 04/04/19 at 04:30 Glucose (Glutose) 15 gm Q15M PRN BUCCAL DECREASED GLUCOSE; Start 04/04/19 at 04:30 Miscellaneous Information (Pending [facility] Order For Wound Care) This patient smith... PRN PRN XX WOUND CARE; Start 04/04/19 at 07:00 Clonidine (Catapres) 0.1 mg Q8H PRN PO SBP ABOVE 160; Start 04/04/19 at 09:30 Montelukast Sodium (Singulair) 10 mg DAILY PO Last administered on 04/06/19at 08:46; Admin Dose 10 MG; Start 04/05/19 at 09:00 Arformoterol Tartrate (Brovana (Neb)) 2 ml BID RESP THERAPY INH Last administered on 04/06/19at 20:09; Admin Dose 2 ML; Start 04/04/19 at 20:00 Budesonide (Pulmicort (Neb)) 0.5 mg BID RESP THERAPY INH Last administered on 04/06/19 20:09; Admin Dose 0.5 MG; Start 04/04/19 at 20:00 Docusate Sodium (Colace) 100 mg BID PO Last administered on 04/06/19 21:52; Admin Dose 100 MG; Start 04/04/19 at 21:00 Polyethylene Glycol (Miralax) 8.5 gm DAILY PO Last administered on 04/06/19 09:19; Admin Dose 8.5 GM; Start 04/05/19 at 09:00 Diphenhydramine HCl (Benadryl) 25 mg Q8H PRN IV Itching Last administered on 04/06/19 11:39; Admin Dose 25 MG; Start 04/04/19 at 22:00 Vancomycin HCl (Vanco Iv Per Pharmacy) VANCOMYCIN PER PHARMACY PER PROTOCOL XX ; Start 04/05/19 at 04:00 Ceftriaxone Sodium 50 ml @ 100 mls/hr Q24H IVPB Last administered on 04/07/19 05:01; Admin Dose 100 MLS/HR; Start 04/05/19 at 04:00 Epoetin Randolph-epbx (Retacrit (Esrd)) 10,000 unit MoWeFr@1700 SC Last administered on 04/05/19 18:16; Admin Dose 10,000 UNIT; Start 04/05/19 at 17:00 Heparin Sodium (Porcine) (Heparin (1000 Units/ml)) 2,800 unit AFTER DIALYSIS CATHETER Last administered on 04/06/19 00:02; Admin Dose 2,800 UNIT; Start 04/05/19 at 22:30 Midodrine (Proamatine) 5 mg TID@09,13,17 PO Last administered on 04/06/19 13:24; Admin Dose 5 MG; Start 04/06/19 at 09:00 Atorvastatin Calcium (Lipitor) 20 mg HS PO Last administered on 04/06/19 21:52; Admin Dose 20 MG; Start 04/06/19 at 21:00 Ferric Sodium Gluconate Complex 125 mg/Sodium Chloride 110 ml @ 110 mls/hr DAILY@1300 IVPB Last administered on 04/06/19 13:00; Admin Dose 110 MLS/HR; Start 04/06/19 at 13:00; Stop 04/10/19 at 13:59 Famotidine (Pepcid) 20 mg DAILY PO Last administered on 04/06/19at 08:46; Admin Dose 20 MG; Start 04/06/19 at 09:00 Insulin Aspart (Novolog Insulin Pen) 4 unit WITH MEALS SC ; Start 04/06/19 at 11:30 Insulin Glargine (Lantus) 20 units QHS SC Last administered on 04/06/19at 22:01; Admin Dose 20 UNITS; Start 04/06/19 at 21:00 Heparin Sodium (Porcine) (Heparin (5000 Units/1ml)) 5,000 unit BID SC ; Start 04/06/19 at 21:00; Status UNV Aspirin (Halfprin) 81 mg DAILY PO ; Start 04/07/19 at 09:00 Lactulose (Enulose) 20 gm ONCE ONCE PO ; Start 04/07/19 at 08:30; Stop 04/07/19 at 08:31; Status UNV Bisacodyl (Dulcolax) 20 mg ONCE ONCE PO ; Start 04/07/19 at 08:30; Stop 04/07/19 at 08:31; Status UNV Bisacodyl (Dulcolax) 5 mg DAILY PRN PO CONSTIPATION; Start 04/07/19 at 08:30; Status UNV BLAS GTZ MD Apr 07, 2019 08:30
[2019-04-07] MEDS: HYDROmorphONE 0.5 MG/0.5 ML SYG IV PRN ×2 (08:42→13:18)
[2019-04-07] MEDS: DOCUSATE SODIUM 100 MG CAP PO SCH ×2 (08:43→21:24)
[2019-04-07] MEDS: ASPIRIN (EC) 81 MG TAB PO SCH (08:43)
[2019-04-07] MEDS: FAMOTIDINE 20 MG TAB PO SCH (08:44)
[2019-04-07] MEDS: MIDODRINE 5 MG TAB PO SCH ×3 (08:44→18:32)
[2019-04-07] MEDS: MONTELUKAST 10 MG TAB PO SCH (08:44)
[2019-04-07] MEDS: POLYETHYLENE GLYCOL 17 GM PACKET PO SCH (08:44)
[2019-04-07] MEDS: HEPARIN 5,000 UNIT/1 ML VIAL SC SCH ×2 (09:00→21:31)
[2019-04-07] MEDS: ARFORMOTEROL TARTRATE 15MCG/2 ML AMP INH SCH ×2 (09:39→19:58)
[2019-04-07] MEDS: BUDESONIDE (NEB) 0.5MG/2ML AMP INH SCH ×2 (09:39→19:58)
--- NOTE | 2019-04-07 11:39 | CONS ---
Assessment/Plan Assessment/Plan Hospital Course (Demo Recall) 1. End-stage renal disease. The patient is on dialysis Monday, Monday, Monday. next tomorrow. 2. Hyperkalemia. improved 3. Anemia. Continue to monitor hemoglobin and hematocrit levels, epogen with HD 4. Mineral bone disorder, monitor calcium and phosphorus levels. 5. Septic shock, etiology is bacteremia. cont abx. off pressors. 6. Bilateral lower extremity fractures. The patient is evaluated by orthopedist. The patient is status post cast placement. Continue to monitor. 7. History of spina bifida. Continue to monitor. 8. History of lumbar injury. Continue to monitor. 9. Diabetes. Continue current insulin regimen. Consultation Date/Type/Reason Admit Date/Time April 03, 2019 at 20:02 Initial Consult Date 04/04/19 Date/Time of Note DATE: 04/07/19 TIME: 11:37 24 HR Interval Summary Free Text/Dictation denies shortness of breath, n/v s/p hd yesterday d/w rn gen nad cv rrr pulm ctab abd soft, nd, nt +bs ext: b.l legs with casts Exam/Review of Systems Exam Vitals Vital Signs Date Temp Pulse Resp B/P (MAP) Pulse Ox O2 O2 Flow FiO2 Time Delivery Rate 04/07/19 86 22 125/64 92 10:00 (84) 04/07/19 5.0 08:39 04/07/19 Nasal 08:39 Cannula 04/07/19 98.7 04:00 04/06/19 31 01:47 Intake and Output 04/06/19 04/06/19 04/07/19 1515:00 23:00 07:00 IntakeIntake Total 360 ml 345 ml 250 ml OutputOutput Total 15 ml 5 ml 60 ml BalanceBalance 345 ml 340 ml 190 ml Results Result Diagram: 04/07/19 0515 04/07/19 0515 Results 24hrs Laboratory Tests Test 04/06/19 11:45 04/06/19 16:06 04/06/19 17:54 04/06/19 21:51 Bedside Glucose 89 84 105 Sodium Level 136 Potassium Level 4.6 Chloride Level 98 Carbon Dioxide Level 26 Anion Gap 12 Blood Urea Nitrogen 20 Creatinine 2.36 H Est Glomerular Filtrat 22 L Rate mL/min Glucose Level 83 Calcium Level 8.0 L Magnesium Level 1.8 Troponin I < 0.012 Test 04/07/19 00:18 04/07/19 05:15 04/07/19 08:37 Troponin I < 0.012 White Blood Count 8.8 # Red Blood Count 2.75 #L Hemoglobin 8.0 #L Hematocrit 24.9 #L Mean Corpuscular Volume 90.5 Mean Corpuscular 29.1 Hemoglobin Mean Corpuscular 32.1 Hemoglobin Concent Red Cell Distribution 17.1 H Width Platelet Count 189 Mean Platelet Volume 13.5 H Immature Granulocytes % 2.200 H Neutrophils % 72.0 Lymphocytes % 16.0 Monocytes % 7.4 Eosinophils % 1.6 Basophils % 0.8 Nucleated Red Blood 0.0 Cells % Immature Granulocytes # 0.190 H Neutrophils # 6.3 Lymphocytes # 1.4 Monocytes # 0.7 Eosinophils # 0.1 Basophils # 0.1 Nucleated Red Blood 0.0 Cells # Sodium Level 138 Potassium Level 4.5 Chloride Level 100 Carbon Dioxide Level 26 Anion Gap 12 Blood Urea Nitrogen 29 H Creatinine 3.25 H Est Glomerular Filtrat 15 L Rate mL/min Glucose Level 83 Calcium Level 8.1 L Random Vancomycin Level 11.4 Bedside Glucose 86 Medications Medication Current Medications IV Flush (NS 3 ml) 3 ml PER PROTOCOL IV ; Start 04/03/19 at 21:00 Acetaminophen (Tylenol Tab) 650 mg Q6H PRN PO .PAIN 1-3 OR TEMP Last administered on 04/06/19at 08:46; Admin Dose 650 MG; Start 04/03/19 at 21:00 Morphine Sulfate (morphine) 2 mg Q4H PRN IV .SEVERE PAIN 7-10 Last administered on 04/03/19at 22:59; Admin Dose 2 MG; Start 04/03/19 at 21:00 Docusate Sodium (Colace) 100 mg Q12H PRN PO .CONSTIPATION; Start 04/03/19 at 21:00 Bisacodyl (Dulcolax) 5 mg DAILY PRN PO .CONSTIPATION; Start 04/03/19 at 21:00 Hydromorphone HCl (Dilaudid) 0.5 mg Q4 PRN IV PAIN LEVEL 6-10 Last administered on 04/07/19at 08:42; Admin Dose 0.5 MG; Start 04/03/19 at 22:00 Ondansetron HCl (Zofran Inj) 4 mg Q4H PRN IV NAUSEA/VOMITING Last administered on 04/05/19at 18:15; Admin Dose 4 MG; Start 04/04/19 at 01:00 Diagnostic Test (Pha) (Accu-Chek) 1 ea 02 XX ; Start 04/05/19 at 02:00 Insulin Aspart (Novolog Insulin Pen) NOVOLOG *MILD* ALGORITHM WITH MEALS BEDTIME SC Last administered on 04/04/19at 17:24; Admin Dose 1 UNIT; Start 04/04/19 at 08:00 Miscellaneous Information 1 ea NOTE XX ; Start 04/04/19 at 04:30 Glucose (Glutose) 15 gm Q15M PRN PO DECREASED GLUCOSE; Start 04/04/19 at 04:30 Glucose (Glutose) 22.5 gm Q15M PRN PO DECREASED GLUCOSE; Start 04/04/19 at 04:30 Dextrose (D50w Syringe) 25 ml Q15M PRN IV DECREASED GLUCOSE; Start 04/04/19 at 04:30 Dextrose (D50w Syringe) 50 ml Q15M PRN IV DECREASED GLUCOSE; Start 04/04/19 at 04:30 Glucagon (Glucagen) 1 mg Q15M PRN IM DECREASED GLUCOSE; Start 04/04/19 at 04:30 Glucose (Glutose) 15 gm Q15M PRN BUCCAL DECREASED GLUCOSE; Start 04/04/19 at 04:30 Miscellaneous Information (Pending [facility] Order For Wound Care) This patient smith... PRN PRN XX WOUND CARE; Start 04/04/19 at 07:00 Clonidine (Catapres) 0.1 mg Q8H PRN PO SBP ABOVE 160; Start 04/04/19 at 09:30 Montelukast Sodium (Singulair) 10 mg DAILY PO Last administered on 04/07/19at 08:44; Admin Dose 10 MG; Start 04/05/19 at 09:00 Arformoterol Tartrate (Brovana (Neb)) 2 ml BID RESP THERAPY INH Last administered on 04/07/19at 09:39; Admin Dose 2 ML; Start 04/04/19 at 20:00 Budesonide (Pulmicort (Neb)) 0.5 mg BID RESP THERAPY INH Last administered on 04/07/19at 09:39; Admin Dose 0.5 MG; Start 04/04/19 at 20:00 Docusate Sodium (Colace) 100 mg BID PO Last administered on 04/07/19 08:43; Admin Dose 100 MG; Start 04/04/19 at 21:00 Polyethylene Glycol (Miralax) 8.5 gm DAILY PO Last administered on 04/07/19 08:44; Admin Dose 8.5 GM; Start 04/05/19 at 09:00 Diphenhydramine HCl (Benadryl) 25 mg Q8H PRN IV Itching Last administered on 04/06/19 11:39; Admin Dose 25 MG; Start 04/04/19 at 22:00 Vancomycin HCl (Vanco Iv Per Pharmacy) VANCOMYCIN PER PHARMACY PER PROTOCOL XX ; Start 04/05/19 at 04:00 Ceftriaxone Sodium 50 ml @ 100 mls/hr Q24H IVPB Last administered on 04/07/19 05:01; Admin Dose 100 MLS/HR; Start 04/05/19 at 04:00 Epoetin Randolph-epbx (Retacrit (Esrd)) 10,000 unit MoWeFr@1700 SC Last administered on 04/05/19 18:16; Admin Dose 10,000 UNIT; Start 04/05/19 at 17:00 Heparin Sodium (Porcine) (Heparin (1000 Units/ml)) 2,800 unit AFTER DIALYSIS CATHETER Last administered on 04/06/19 00:02; Admin Dose 2,800 UNIT; Start 04/05/19 at 22:30 Midodrine (Proamatine) 5 mg TID@09,13,17 PO Last administered on 04/07/19 08:44; Admin Dose 5 MG; Start 04/06/19 at 09:00 Atorvastatin Calcium (Lipitor) 20 mg HS PO Last administered on 04/06/19 21:52; Admin Dose 20 MG; Start 04/06/19 at 21:00 Ferric Sodium Gluconate Complex 125 mg/Sodium Chloride 110 ml @ 110 mls/hr DAILY@1300 IVPB Last administered on 04/06/19 13:00; Admin Dose 110 MLS/HR; Start 04/06/19 at 13:00; Stop 04/10/19 at 13:59 Famotidine (Pepcid) 20 mg DAILY PO Last administered on 04/07/19 08:44; Admin Dose 20 MG; Start 04/06/19 at 09:00 Insulin Aspart (Novolog Insulin Pen) 4 unit WITH MEALS SC Last administered on 04/07/19at 08:46; Admin Dose 4 UNIT; Start 04/06/19 at 11:30 Insulin Glargine (Lantus) 20 units QHS SC Last administered on 04/06/19at 22:01; Admin Dose 20 UNITS; Start 04/06/19 at 21:00 Heparin Sodium (Porcine) (Heparin (5000 Units/1ml)) 5,000 unit BID SC ; Start 04/06/19 at 10:00 Aspirin (Halfprin) 81 mg DAILY PO Last administered on 04/07/19at 08:43; Admin Dose 81 MG; Start 04/07/19 at 09:00 Bisacodyl (Dulcolax) 5 mg DAILY PRN PO CONSTIPATION; Start 04/07/19 at 08:30 ATIYA CALVIN MD Apr 07, 2019 11:39
[2019-04-07] MEDS ORDERED: VANCOMYCIN 1 GM 250 ML IVPB ONE (13:00)
[2019-04-07] MEDS: ONDANSETRON 4 MG INJ IV PRN ×2 (13:18→23:03)
[2019-04-07] MEDS: SOD FERRIC GLUC COMPLX 125 MG in SOD CHLORIDE 0.9% 100 ML IVPB SCH (18:29)
[2019-04-07] MEDS: ATORVASTATIN 20 MG TAB PO SCH (21:24)
[2019-04-07] MEDS: INSULIN GLARGINE [LANTus] (100 UNITS/ML) SYG SC SCH (22:50)
[2019-04-08] MEDS: ACCU-CHEK XX SCH (02:16)
[2019-04-08] MEDS: HYDROmorphONE 0.5 MG/0.5 ML SYG IV PRN (02:32)
[2019-04-08] MEDS: CEFTRIAXONE 2 GM/50 ML (PMX) 50 ML IVPB SCH (04:34)
[2019-04-08] MEDS: ARFORMOTEROL TARTRATE 15MCG/2 ML AMP INH SCH ×2 (07:36→21:10)
[2019-04-08] MEDS: BUDESONIDE (NEB) 0.5MG/2ML AMP INH SCH ×2 (07:36→21:01)
[2019-04-08 08:04] VITALS: BP 150/68; PULSE 82; RESP 18
[2019-04-08] MEDS: MIDODRINE 5 MG TAB PO SCH ×3 (09:00→17:00)
[2019-04-08] MEDS: HEPARIN 5,000 UNIT/1 ML VIAL SC SCH ×2 (09:00→21:00)
[2019-04-08] MEDS: INSULIN ASPART [NOVOLOG] 3 ML PEN SC SCH ×4 (09:20→21:00)
[2019-04-08] MEDS: FAMOTIDINE 20 MG TAB PO SCH (09:30)
[2019-04-08] MEDS: DOCUSATE SODIUM 100 MG CAP PO SCH ×2 (09:30→21:00)
[2019-04-08] MEDS: MONTELUKAST 10 MG TAB PO SCH (09:30)
[2019-04-08] MEDS ORDERED: BISACODYL 10 MG SUPP PR ONE (10:00)
[2019-04-08] MEDS: ASPIRIN (EC) 81 MG TAB PO SCH (12:03)
[2019-04-08 12:52] VITALS: BP 161/74; PULSE 74; RESP 18
--- NOTE | 2019-04-08 13:16 | PN ---
DATE: 04/08/2019 SUBJECTIVE: The patient is stable. No events overnight. She was transferred out to intensive care unit. No other acute events noted. OBJECTIVE: VITAL SIGNS: Blood pressure is 162/90, respiration 18, pulse 80, temperature 98.2. HEENT: Head is normocephalic. NECK: Supple. HEART: Regular rate. LUNGS: Show diminished breath sounds at the base. ABDOMEN: Soft, nontender to palpation without rebound or guarding. EXTREMITIES: Negative for clubbing, cyanosis. Trace edema. DERMATOLOGIC: No rashes. MUSCULOSKELETAL: No joint effusion. NEUROLOGIC: No change in exam. MEDICATIONS: Have been reviewed. LABORATORY DATA: Have been reviewed. ASSESSMENT AND PLAN: 1. End-stage renal disease. The patient is scheduled for dialysis today. We will dialyze 3 hours o f 3k bath, calcium 2.5. 2. Hypokalemia. Continue dialysis, low potassium bath. 3. Anemia. Monitor hemoglobin and hematocrit levels. Continue Epogen. We will follow up an iron p sy. 4. Mineral bone disorder. Monitor calcium and phosphorus levels. 5. Sepsis, status post shock secondary to bacteremia and urinary tract infection. The patient is of f pressor support. Continue current antibiotic therapy. 6. Bilateral lower extremity fractures. The patient will be followed by orthopedist, status post ca st placement. Continue to monitor. 7. History of spina bifida. Continue to monitor. 8. History of lumbar injury. Continue to monitor. 9. Diabetes. Continue current insulin regimen. Dictated By: GEMMA MERIDA/NTS Conf#: [id number] DID#: [id number] CC: CHEYANNE THAKUR MD; REE HOWARD MD;*EndCC*
[2019-04-08] MEDS ORDERED: ALTEPLASE (CATHFLO) 2 MG INJ CATHETER PRN (15:00)
[2019-04-08] MEDS: FLUCONAZOLE 200 MG (PMX) 100 ML IVPB SCH (16:00)
[2019-04-08] MEDS: METOCLOPRAMIDE 10 MG INJ IV SCH ×2 (16:02→17:26)
[2019-04-08] MEDS: morphine 2 MG INJ IV PRN (17:24)
[2019-04-08] MEDS: SOD FERRIC GLUC COMPLX 125 MG in SOD CHLORIDE 0.9% 100 ML IVPB SCH (17:25)
--- NOTE | 2019-04-08 17:31 | RADRPT ---
Vent Rate: 72 bpm RR Interval: 832 msec [place] Interval: 163 msec QRS Duration: 95 msec QT Interval: 431 msec QTC Interval: 473 msec P-R-T [place]: 31 - -72 - 41 degrees Sinus rhythm... Probable left atrial enlargement...P >50mS, <-0.10mV V1 Left anterior fascicular block... Low voltage, precordial leads... Consider anterior infarct Electronically Signed By: Warren Gaspar
[2019-04-08] MEDS: EPOETIN ALFA-EPBX (ESRD) 10,000 UNIT/ML VIAL SC SCH (18:09)
[2019-04-08] MEDS: ATORVASTATIN 20 MG TAB PO SCH (21:00)
[2019-04-08] MEDS ORDERED: DEXTROSE 5%-0.45% NACL 1,000 ML IV ONE (21:30)
--- NOTE | 2019-04-08 22:21 | PN ---
Date/Time of Note Date/Time of Note DATE: 04/08/19 TIME: 22:16 Assessment/Plan VTE Prophylaxis Risk score (from Nsg)>0 risk: 12 SCD applied (from Nsg): No SCD contraindicated: other Pharmacological prophylaxis: heparin Lines/Catheters IV Catheter Type (from Nrsg): Mid Line Urinary Cath still in place: Yes Reason Cath still needed: other (indicate) Assessment/Plan Hospital Course Subjective: nausea and constipation Objective: General: Alert, oriented X3 HEENT: Normocephalic, atraumatic, moist mucous membranes Chest: Diminished but clear breath sounds bilaterally without crackles no wheezes Cardiovascular: Heart sounds S1 and 2, no murmurs Abdomen: Soft, nontender, positive bowel sounds Extremities: Bandaged and splinted all the way from the upper hips to the ankles bilaterally Assessment and plan: 53-year-old female who had presented to the emergency room after a fall from the wheelchair when leaving dialysis unit. Patient sustained bilateral femoral and tibia fibula fractures. After review with orthopedic surgeon, patient opted for nonsurgical management. She is currently managed as follows: 1. Bilateral multiple lower extremity fractures involving bilateral femur, tib ia and fibula -Closed fractures, patient has opted for non surgical mgt / s/p splinting in ER / [facility] for at least 12 weeks per Ortho -No neurologic vascular deficits -Patient had had a prior fracture to her right distal femur which was managed nonoperatively. 2. Severe bilateral lower extremity pain secondary to #1:improved 3. Severe sepsis with septic shock likely 2/2 UTI -Patient has penicillin allergy, but she is able to tolerate ceftriaxone 4. End-stage renal disease on hemodialysis -Continue routine hemodialysis as tolerated per nephro. Systemic shock may be a limiting concern 5. Chronic hypochromic anemia likely secondary to kidney disease -Secondary to iron deficiency -Intravenous iron replacement for 5 days -s/p transfusion PRBC 6. Chronically wheelchair-bound, nonambulant from prior spinal injury/spinal bifida 7. History of hypertension -antihypertensives on hold for impending shock, plan to resume if neccesary 8. History of pulmonary fibrosis -No concern for acute exacerbation at this time, continue home inhalers and as needed rescue bronchodilators 9. Diabetes mellitus type 2 on insulin - Dispo: -once nausea and constipation resolve, plan to d/c to SNF Prophylaxis: Heparin / Pepcid CRITICAL CARE TIME: >35 mins of which more than half was spent at the bedside and during counselling Result Diagram: 04/08/19 0445 04/08/19 0445 Results 24hrs Laboratory Tests Test 04/08/19 02:03 04/08/19 02:27 04/08/19 03:02 04/08/19 04:45 Bedside Glucose 65 L 62 L 121 White Blood Count 9.3 Red Blood Count 2.94 L Hemoglobin 8.5 L Hematocrit 27.1 L Mean Corpuscular Volume 92.2 Mean Corpuscular 28.9 L Hemoglobin Mean Corpuscular 31.4 L Hemoglobin Concent Red Cell Distribution 16.6 H Width Platelet Count 219 Mean Platelet Volume 13.9 H Immature Granulocytes % 2.000 H Neutrophils % 82.5 H Lymphocytes % 8.6 L Monocytes % 5.4 Eosinophils % 1.0 Basophils % 0.5 Nucleated Red Blood 0.0 Cells % Immature Granulocytes # 0.190 H Neutrophils # 7.7 H Lymphocytes # 0.8 Monocytes # 0.5 Eosinophils # 0.1 Basophils # 0.1 Nucleated Red Blood 0.0 Cells # Sodium Level 142 Potassium Level 4.0 Chloride Level 104 Carbon Dioxide Level 24 Anion Gap 14 H Blood Urea Nitrogen 31 H Creatinine 3.77 H Est Glomerular Filtrat 13 L Rate mL/min Glucose Level 74 Calcium Level 8.5 Test 04/08/19 09:24 04/08/19 13:11 04/08/19 17:19 04/08/19 20:16 Bedside Glucose 74 80 73 59 L Test 04/08/19 20:24 04/08/19 20:33 04/08/19 20:44 04/08/19 20:46 Bedside Glucose 60 L 68 L 59 L 75 Test 04/08/19 21:04 04/08/19 21:06 04/08/19 21:27 04/08/19 21:47 Bedside Glucose 62 L 61 L 68 L 75 Exam/Review of Systems Exam Vitals Vital Signs Date Temp Pulse Resp B/P (MAP) Pulse Ox O2 O2 Flow FiO2 Time Delivery Rate 04/08/19 81 20 100 Nasal 3.0 21:10 Cannula 04/08/19 98.0 161/74 12:52 (103) 04/06/19 31 01:47 Intake and Output 04/07/19 04/07/19 04/08/19 1515:00 23:00 07:00 IntakeIntake Total 300 ml 410 ml 550 ml OutputOutput Total 410 ml 700 ml BalanceBalance -110 ml 410 ml -150 ml Results Results 24hrs Laboratory Tests Test 04/08/19 02:03 04/08/19 02:27 04/08/19 03:02 04/08/19 04:45 Bedside Glucose 65 L 62 L 121 White Blood Count 9.3 Red Blood Count 2.94 L Hemoglobin 8.5 L Hematocrit 27.1 L Mean Corpuscular Volume 92.2 Mean Corpuscular 28.9 L Hemoglobin Mean Corpuscular 31.4 L Hemoglobin Concent Red Cell Distribution 16.6 H Width Platelet Count 219 Mean Platelet Volume 13.9 H Immature Granulocytes % 2.000 H Neutrophils % 82.5 H Lymphocytes % 8.6 L Monocytes % 5.4 Eosinophils % 1.0 Basophils % 0.5 Nucleated Red Blood 0.0 Cells % Immature Granulocytes # 0.190 H Neutrophils # 7.7 H Lymphocytes # 0.8 Monocytes # 0.5 Eosinophils # 0.1 Basophils # 0.1 Nucleated Red Blood 0.0 Cells # Sodium Level 142 Potassium Level 4.0 Chloride Level 104 Carbon Dioxide Level 24 Anion Gap 14 H Blood Urea Nitrogen 31 H Creatinine 3.77 H Est Glomerular Filtrat 13 L Rate mL/min Glucose Level 74 Calcium Level 8.5 Test 04/08/19 09:24 04/08/19 13:11 04/08/19 17:19 04/08/19 20:16 Bedside Glucose 74 80 73 59 L Test 04/08/19 20:24 04/08/19 20:33 04/08/19 20:44 04/08/19 20:46 Bedside Glucose 60 L 68 L 59 L 75 Test 04/08/19 21:04 04/08/19 21:06 04/08/19 21:27 04/08/19 21:47 Bedside Glucose 62 L 61 L 68 L 75 Medications Medication Current Medications IV Flush (NS 3 ml) 3 ml PER PROTOCOL IV ; Start 04/03/19 at 21:00 Acetaminophen (Tylenol Tab) 650 mg Q6H PRN PO .PAIN 1-3 OR TEMP Last administe red on 04/06/19at 08:46; Admin Dose 650 MG; Start 04/03/19 at 21:00 Morphine Sulfate (morphine) 2 mg Q4H PRN IV .SEVERE PAIN 7-10 Last administered on 04/08/19 17:24; Admin Dose 2 MG; Start 04/03/19 at 21:00 Docusate Sodium (Colace) 100 mg Q12H PRN PO .CONSTIPATION; Start 04/03/19 at 21:00 Hydromorphone HCl (Dilaudid) 0.5 mg Q4 PRN IV PAIN LEVEL 6-10 Last administered on 04/08/19 02:32; Admin Dose 0.5 MG; Start 04/03/19 at 22:00 Ondansetron HCl (Zofran Inj) 4 mg Q4H PRN IV NAUSEA/VOMITING Last administered on 04/07/19 23:03; Admin Dose 4 MG; Start 04/04/19 at 01:00 Diagnostic Test (Pha) (Accu-Chek) 1 ea 02 XX Last administered on 04/08/19at 02:16; Admin Dose 1 EA; Start 04/05/19 at 02:00 Insulin Aspart (Novolog Insulin Pen) NOVOLOG *MILD* ALGORITHM WITH MEALS BEDTIME SC Last administered on 04/04/19at 17:24; Admin Dose 1 UNIT; Start 04/04/19 at 08:00 Miscellaneous Information 1 ea NOTE XX ; Start 04/04/19 at 04:30 Glucose (Glutose) 15 gm Q15M PRN PO DECREASED GLUCOSE; Start 04/04/19 at 04:30 Glucose (Glutose) 22.5 gm Q15M PRN PO DECREASED GLUCOSE; Start 04/04/19 at 04:30 Dextrose (D50w Syringe) 25 ml Q15M PRN IV DECREASED GLUCOSE; Start 04/04/19 at 04:30 Dextrose (D50w Syringe) 50 ml Q15M PRN IV DECREASED GLUCOSE; Start 04/04/19 at 04:30 Glucagon (Glucagen) 1 mg Q15M PRN IM DECREASED GLUCOSE; Start 04/04/19 at 04:30 Glucose (Glutose) 15 gm Q15M PRN BUCCAL DECREASED GLUCOSE Last administered on 04/08/19 02:32; Admin Dose 15 GM; Start 04/04/19 at 04:30 Miscellaneous Information (Pending [facility] Order For Wound Care) This patient smith... PRN PRN XX WOUND CARE; Start 04/04/19 at 07:00 Clonidine (Catapres) 0.1 mg Q8H PRN PO SBP ABOVE 160 Last administered on 04/08/19 02:31; Admin Dose 0.1 MG; Start 04/04/19 at 09:30 Montelukast Sodium (Singulair) 10 mg DAILY PO Last administered on 04/08/19 09:30; Admin Dose 10 MG; Start 04/05/19 at 09:00 Arformoterol Tartrate (Brovana (Neb)) 2 ml BID RESP THERAPY INH Last administered on 04/08/19 21:10; Admin Dose 2 ML; Start 04/04/19 at 20:00 Budesonide (Pulmicort (Neb)) 0.5 mg BID RESP THERAPY INH Last administered on 04/08/19 21:01; Admin Dose 0.5 MG; Start 04/04/19 at 20:00 Docusate Sodium (Colace) 100 mg BID PO Last administered on 04/08/19 09:30; Admin Dose 100 MG; Start 04/04/19 at 21:00 Diphenhydramine HCl (Benadryl) 25 mg Q8H PRN IV Itching Last administered on 04/06/19 11:39; Admin Dose 25 MG; Start 04/04/19 at 22:00 Vancomycin HCl (Vanco Iv Per Pharmacy) VANCOMYCIN PER PHARMACY PER PROTOCOL XX ; Start 04/05/19 at 04:00 Epoetin Randolph-epbx (Retacrit (Esrd)) 10,000 unit MoWeFr@1700 SC Last administered on 04/08/19 18:09; Admin Dose 10,000 UNIT; Start 04/05/19 at 17:00 Heparin Sodium (Porcine) (Heparin (1000 Units/ml)) 2,800 unit AFTER DIALYSIS CATHETER Last administered on 04/06/19 00:02; Admin Dose 2,800 UNIT; Start 04/05/19 at 22:30 Midodrine (Proamatine) 5 mg TID@,,17 PO Last administered on 04/07/19 08:44; Admin Dose 5 MG; Start 04/06/19 at 09:00 Atorvastatin Calcium (Lipitor) 20 mg HS PO Last administered on 04/07/19 21:24; Admin Dose 20 MG; Start 04/06/19 at 21:00 Ferric Sodium Gluconate Complex 125 mg/Sodium Chloride 110 ml @ 110 mls/hr DAILY@1300 IVPB Last administered on 04/08/19 17:25; Admin Dose 110 MLS/HR; Start 04/06/19 at 13:00; Stop 04/10/19 at 13:59 Famotidine (Pepcid) 20 mg DAILY PO Last administered on 04/08/19 09:30; Admin Dose 20 MG; Start 04/06/19 at 09:00 Insulin Aspart (Novolog Insulin Pen) 4 unit WITH MEALS SC Last administered on 04/07/19 12:03; Admin Dose 4 UNIT; Start 04/06/19 at 11:30; Status Hold Insulin Glargine (Lantus) 20 units QHS SC Last administered on 04/06/19 22:01; Admin Dose 20 UNITS; Start 04/06/19 at 21:00; Status Hold Heparin Sodium (Porcine) (Heparin (5000 Units/1ml)) 5,000 unit BID SC Last administered on 04/07/19 21:31; Admin Dose 5,000 UNIT; Start 04/06/19 at 10:00 Aspirin (Halfprin) 81 mg DAILY PO Last administered on 04/08/19 12:03; Admin Dose 81 MG; Start 04/07/19 at 09:00 Bisacodyl (Dulcolax) 5 mg DAILY PRN PO CONSTIPATION; Start 04/07/19 at 08:30 Metoclopramide HCl (Reglan) 10 mg Q6 IV Last administered on 04/08/19 16:02; Admin Dose 10 MG; Start 04/08/19 at 12:00; Stop 04/09/19 at 11:59 Fluconazole 100 ml @ 100 mls/hr Q24H IVPB Last administered on 04/08/19 16:00; Admin Dose 100 MLS/HR; Start 04/08/19 at 12:30 Polyethylene Glycol (Miralax) 17 gm DAILY PO ; Start 04/09/19 at 09:00 Alteplase, Recombinant (Cathflo (Activase)) 4 mg MAY REPEAT X1 PRN CATHETER IF CATHETER REMAINS OCCULUDED Last administered on 04/08/19at 15:20; Admin Dose 4 MG; Start 04/08/19 at 15:00 Dextrose/Sodium Chloride 1,000 ml @ 60 mls/hr [id number] ONCE IV Last administered on 04/08/19at 21:50; Admin Dose 60 MLS/HR; Start 04/08/19 at 21:30; Stop 04/09/19 at 14:09 LIZZ SPANGLER Apr 08, 2019 22:21
[2019-04-09] VITALS (18 sets, daily range): BP systolic 123–187; BP diastolic 56–84; PULSE 71–86; RESP 14–20
[2019-04-09] MEDS: ACCU-CHEK XX SCH (02:00)
[2019-04-09] MEDS: morphine 2 MG INJ IV PRN ×3 (04:44→17:27)
[2019-04-09] MEDS: METOCLOPRAMIDE 10 MG INJ IV SCH ×2 (05:20)
[2019-04-09] MEDS ORDERED: MAGNESIUM SULFATE 2 GM/50 ML 50 ML IVPB ONE ×2 (08:00→10:30)
[2019-04-09] MEDS: ARFORMOTEROL TARTRATE 15MCG/2 ML AMP INH SCH ×2 (08:37→21:00)
[2019-04-09] MEDS: BUDESONIDE (NEB) 0.5MG/2ML AMP INH SCH ×2 (08:37→21:01)
[2019-04-09] MEDS: INSULIN ASPART [NOVOLOG] 3 ML PEN SC SCH ×4 (08:59→20:53)
[2019-04-09] MEDS: MIDODRINE 5 MG TAB PO SCH ×3 (09:00→17:00)
--- NOTE | 2019-04-09 09:09 | PN ---
DATE: 04/09/2019 SUBJECTIVE: The patient is stable. No events overnight. The patient is scheduled for hemodialysis today. OBJECTIVE: VITAL SIGNS: Blood pressure is 161/74, respirations 18, pulse 74, temperature 98.0. HEENT: Head is normocephalic. NECK: Supple. HEART: Regular rate. LUNGS: Show diminished breath sounds at base. ABDOMEN: Soft, nontender to palpation without rebound or guarding. EXTREMITIES: Negative for clubbing, cyanosis. Positive lower extremity is in a soft cast. NEUROLOGIC: No change in exam. MEDICATIONS: Reviewed. LABORATORY DATA: Has been reviewed. ASSESSMENT AND PLAN: 1. End-stage renal disease. The patient was unable to have dialysis fully yesterday. Will have ano ther session of dialysis today. 2. Hyperkalemia, improved. 3. Anemia. Monitor hemoglobin and hematocrit levels. Continue Epogen. Continue ferrous sulfate. 4. Mineral bone disorder, monitor calcium and phosphorus levels. 5. Sepsis secondary to urinary tract infection. Continue current antibiotic regimen. 6. Bilateral lower extremity fractures. The patient's bilateral are currently in a soft cast. Continue to monitor. 7. History of spina bifida. 8. History of lumbar injury. 9. Diabetes. Continue current insulin regimen. 10. Hypomagnesemia. Replete with magnesium sulfate. Dictated By: GEMMA MERIDA/NTS Conf#: [id number] DID#: [id number] CC: CHEYANNE THAKUR MD;*EndCC*
[2019-04-09] MEDS: HEPARIN 1000 UNITS/ML 10 ML INJ CATHETER SCH (10:29)
[2019-04-09] MEDS: ASPIRIN (EC) 81 MG TAB PO SCH (11:18)
[2019-04-09] MEDS: DOCUSATE SODIUM 100 MG CAP PO SCH ×2 (11:19→20:48)
[2019-04-09] MEDS: MONTELUKAST 10 MG TAB PO SCH (11:19)
[2019-04-09] MEDS: FAMOTIDINE 20 MG TAB PO SCH (11:19)
[2019-04-09] MEDS: POLYETHYLENE GLYCOL 17 GM PACKET PO SCH (11:20)
[2019-04-09] MEDS: HEPARIN 5,000 UNIT/1 ML VIAL SC SCH ×2 (11:29→20:51)
[2019-04-09] MEDS: SEVELAMER CARBONATE 800 MG TABLET PO SCH ×2 (11:32→17:27)
[2019-04-09] MEDS: SOD FERRIC GLUC COMPLX 125 MG in SOD CHLORIDE 0.9% 100 ML IVPB SCH (13:46)
[2019-04-09] MEDS: FLUCONAZOLE 200 MG (PMX) 100 ML IVPB SCH (13:52)
[2019-04-09] MEDS: COLLAGENASE 5 GM (UD JAR) TOP SCH (17:27)
--- NOTE | 2019-04-09 19:48 | RADRPT ---
Echocardiogram Report Patient Name: Calixto VELASQUEZnt ID: [id number] : [id number] ([id number] 7m)Study Date: 04/09/2019 1:25:28 PM Gender: FAccession #: [id number] Tech: Win Clay PERCY Location: [id number] Ref.Physician: LIZZ SPANGLER Height(Cm): BSA: Weight(Kg): Quality: Technically Difficult StudyOrder Physician: LIZZ SPANGLER Account #: Procedures: Echocardiographic Report: Transthoracic echocardiogram with complete 2D, M-Mode, and doppler examination. Indications: Endocarditis. Measurements: 2D/M Mode Doppler Measurement Value Normal Range Measurement Value Normal Range LVIDd 2D 4.9 [ 3.8 - 5.2 ] cm MARSHA Vmax 1.5 [ 2.0 - 4.0 ] cm2 LVIDs 2D 3.1 [ 2.2 - 3.5 ] cm MARSHA VTI 1.5 [ 2.0 - 4.0 ] cm2 LVPWd 2D 1.0 [ 0.6 - 0.9 ] cm AV Mean Tahir 1.4 [ 70.0 - 90.0 ] cm/sec IVSd 2D 1.0 [ 0.6 - 0.9 ] cm AV Mean PG 10.0 [ 2.0 - 4.0 ] mmHg IVS/LVPW 2D 1.0 ratio AV Peak Tahir 2.3 [ 100.0 - 170.0 ] cm/sec AoR Diam 2D 2.3 [ 2.3 - 3.1 ] cm AV Peak PG 20.0 [ 2.0 - 9.0 ] mmHg LA/Ao 2D 1 ratio AV VTI 41.0 cm LA Dimen 2D 2.7 [ 2.7 - 3.8 ] cm LVOT Mean Tahir 0.9 [ 60.0 - 80.0 ] cm/sec LVOT Area 2.5 cm2 LVOT Mean PG 4.0 [ 1.0 - 3.0 ] mmHg LVOT Peak Tahir 1.4 [ 70.0 - 110.0 ] cm/sec LVOT Peak PG 8.0 [ 2.0 - 6.0 ] mmHg LVOT VTI 24.7 [ 20.0 - 30.0 ] cm Lat E` Tahir 0.1 [ 10.0 - 15.0 ] cm/sec TR Peak Tahir 2.5 [ 100.0 - 280.0 ] cm/sec TR Peak PG 26.0 mmHg RVSP 29.0 [ 10.0 - 36.0 ] mmHg RA Pressure 3.0 mmHg Findings: Left Ventricle: Normal left ventricular systolic function. Normal left ventricular cavity size. Normal left ventricular wall thickness. Ejection fraction is visually estimated at 55 %. Tissue Doppler/Mitral Doppler indices are consistent with impaired relaxation (Stage I diastolic dysfunction). Right Ventricle: Normal right ventricular size. Normal right ventricular systolic function. Left Atrium: The left atrium is normal in size. Right Atrium: The right atrium is normal in size. Mitral Valve: Normal appearance and function of the mitral valve with trace physiologic regurgitation. No evidence of endocarditis. Aortic Valve: Normal appearance of the aortic valve. No significant aortic stenosis or insufficiency. Aortic valve Max velocity 2.26 m/sec. Max PG 20.00 mmHg. Mean PG 10.00 mmHg. Aortic sclerosis without significant stenosis. Trace aortic valve regurgitation. No evidence of endocarditis. Tricuspid Valve: Normal appearance of the tricuspid valve. The estimated Peak RVSP is 29 mmHg. There is trace tricuspid regurgitation. No evidence of endocarditis. Pulmonic Valve: Pulmonic valve not well visualized. Pericardium: Normal pericardium with no significant pericardial effusion. Aorta: Normal aortic root. IVC: Normal size and normal respiratory collapse consistent with normal right atrial pressure. Conclusions: Normal left ventricular systolic function. Grade 1 diastolic dysfunction. Trace mitral and tricuspid regurgitation with normal pulmonary pressures. Electronically Signed By: Yamile Foss 2019-04-09 19:47:40 PDT
[2019-04-09] MEDS: ATORVASTATIN 20 MG TAB PO SCH (20:47)
--- NOTE | 2019-04-10 00:55 | PN ---
DATE: 04/09/2019 SUBJECTIVE: Nausea is better. The patient also has had a bowel movement this morning. OBJECTIVE: VITAL SIGNS: Temperature 98.4, pulse is 78, respirations 18, blood pressure 142/78 and saturations 9 4%. The patient remains on oxygen via nasal cannula. GENERAL: The patient is alert and oriented, currently she is in no distress. HEENT: Head is normocephalic without evidence of trauma. Pupils are equal, round and reactive. Muc ous membranes are moist. The patient looks obese; however, her BMI is not that abnormal. CHEST: Auscultation of her chest reveals diminished but fairly clear breath sounds. CARDIOVASCULAR: Heart sounds S1 and S2 without added sounds or murmurs. ABDOMEN: Soft and nontender with normoactive bowel sounds. EXTREMITIES: Bilateral lower extremities are encased in splint all the way from hips to ankles. LABORATORY STUDIES: So today, we have a normal white count, hemoglobin is 8.8, stable, and platelet count is 247. We have no bandemia. Chemistry: Creatinine is 3.8 today. Magnesium is low 1.5 and p hosphorus is high 5.9. MICROBIOLOGY: Urine culture and blood cultures from 04/05/2019: Blood cultures grew out MRSA 2/2 an d the urine culture grew out enterococcus species and Theodora albicans. MRSA was sensitive to vancom ycin. IMAGING: So, we did a chest x-ray and an abdominal x-ray yesterday. A chest x-ray showed mild to mo derate cardiomegaly with pulmonary vascular congestion, improved edema, small left pleural effusion, left subclavian dialysis catheter and a thoracic levoscoliosis and the abdominal x-ray showed stool t hroughout ascending and descending colon without evidence of bowel obstruction. ASSESSMENT AND PLAN: A 53-year-old female who had presented to the emergency room after she fell fro m her wheelchair while leaving the dialysis unit. The patient sustained bilateral femur, tibia and f ibula fractures. After review with orthopedic surgeon, the patient opted for nonsurgical management. She is managed as follows: 1. Bilateral multiple lower extremity fractures involving bilateral femur, tibia and fibula. -- These are closed fractures, the patient has opted for nonsurgical management. -- The patient is status post splinting in the ER. -- Ortho has recommended nonweightbearing for at least 12 weeks. -- The patient has no neurovascular deficits and of note is that the patient has had a prior fracture to the right distal femur, which was also being managed nonoperatively. 2. Severe sepsis with septic shock secondary to methicillin-resistant Staphylococcus aureus bacterem ia and urinary tract infection. 3. Methicillin-resistant Staphylococcus aureus bacteremia: Source is not clear. -- The patient likely was colonized and had a skin tear which introduced infection; however, we will get 2D echo to ensure no vegetations and also we are awaiting repeat blood cultures to ensure that th e patient is responding to vancomycin therapy. 4. Enterococcus/Theodora urinary tract infection: This is unlikely to be the source of her bacteremi a based on cultures. -- Enterococcus is also sensitive to vancomycin and fluconazole for Theodora. 5. End-stage renal disease on hemodialysis, the patient does have subclavian tunneled cath. -- Continue routine hemodialysis per nephrology. 6. Chronic hypochromic anemia with iron deficiency likely secondary to kidney disease. -- Ongoing intravenous iron replacement to complete 5 days. -- Status post transfusion of packed red cells. 7. Chronically wheelchair bound/nonambulance from prior spinal injury/spinal bifida. -- As mentioned above, the patient is to be nonweightbearing for at least 12 weeks. 8. History of hypertension: When the patient arrived, she was hypotensive from sepsis and required pressor support. Blood pressures are beginning to creep up at this time. Continue monitoring and re sume antihypertensives as indicated. Of note is that the patient is on midodrine therapy and I am go ing to stop that at this time. 9. History of pulmonary fibrosis rule out concern for acute exacerbation at this time. -- Continue home inhalers and p.r.n. rescue bronchodilators. 10. Diabetes mellitus type 2 on insulin therapy. The patient had recent excellent control. Hemoglo bin A1c 6.5, but this is unreliable in the setting of chronic anemia. Continue monitoring. 11. Hypomagnesemia. We will replete. 12. Depression: -- The patient became extremely tearful whenever they began discharge planning. Apparently, she does not want to be discharged to a fdc facility as she has been to multiple in the past and they have not taking good care of her. She tells me at one time she actually went into severe respir atory failure and had to be endotracheally intubated and was in a coma for more than 2 days. She is concerned that she will not get optimal care in nursing facility, but unfortunately at home she only has her elderly mother and a sister who has medical problems who cannot care for her. She feels very alone in the world and she became very tearful and unhappy. So at this time, we are going to get a psych consult to review the patient and see what we can do for her. I also get the social media marketing manager to speak with her and to see if any resources are available for her. DISPOSITION: So for now, we are going to await repeat blood cultures and findings on the 2D echo and if these are unremarkable, the patient unfortunately will be planned to discharge back to [facility] as she cannot return to her home because there is no one there to monitor her 24 hours a day and the patient needs to be nonweightbearing for at least 12 weeks. Dictated By: LIZZ SPANGLER MD BA/ANICETO Conf#: [id number] DID#: [id number]
[2019-04-10] MEDS: ACCU-CHEK XX SCH (01:43)
[2019-04-10 02:44] VITALS: BP 147/67; PULSE 81
[2019-04-10] MEDS ORDERED: POTASSIUM CHLORIDE (SR) 20 MEQ TAB PO STA (07:51)
[2019-04-10 08:08] VITALS: BP 158/72; PULSE 75; RESP 14
[2019-04-10] MEDS: SEVELAMER CARBONATE 800 MG TABLET PO SCH ×3 (08:44→17:25)
[2019-04-10] MEDS: MONTELUKAST 10 MG TAB PO SCH (08:45)
[2019-04-10] MEDS: ASPIRIN (EC) 81 MG TAB PO SCH (08:45)
[2019-04-10] MEDS: FAMOTIDINE 20 MG TAB PO SCH (08:45)
[2019-04-10] MEDS: DOCUSATE SODIUM 100 MG CAP PO SCH ×2 (08:45→22:25)
[2019-04-10] MEDS: POLYETHYLENE GLYCOL 17 GM PACKET PO SCH (08:46)
[2019-04-10] MEDS: COLLAGENASE 5 GM (UD JAR) TOP SCH (08:46)
[2019-04-10] MEDS: HEPARIN 5,000 UNIT/1 ML VIAL SC SCH ×2 (08:54→22:53)
[2019-04-10] MEDS: INSULIN ASPART [NOVOLOG] 3 ML PEN SC SCH ×4 (08:55→22:25)
[2019-04-10] MEDS: INSULIN GLARGINE [LANTus] (100 UNITS/ML) SYG SC SCH (08:56)
[2019-04-10] MEDS: morphine 2 MG INJ IV PRN ×2 (09:13→15:42)
[2019-04-10] MEDS: BUDESONIDE (NEB) 0.5MG/2ML AMP INH SCH ×2 (09:25→21:44)
[2019-04-10] MEDS: ARFORMOTEROL TARTRATE 15MCG/2 ML AMP INH SCH ×2 (09:25→20:44)
[2019-04-10] MEDS: ONDANSETRON 4 MG INJ IV PRN ×2 (09:57→17:31)
--- NOTE | 2019-04-10 12:17 | PN ---
DATE: 04/10/2019 SUBJECTIVE: The patient is stable, no events overnight. The patient had hemodialysis yesterday, anastasiia erated well. OBJECTIVE: VITAL SIGNS: Blood pressure is 167/75, respiration 18, pulse 81, temperature 98.6. HEENT: Head is normocephalic. NECK: Supple. HEART: Regular rate. LUNGS: Show diminished breath sounds at the base. ABDOMEN: Soft, nontender to palpation without rebound or guarding. EXTREMITIES: Negative for clubbing, cyanosis, no edema. Patient's lower extremities are in a soft c ast. NEUROLOGIC: No change in exam. MUSCULOSKELETAL: No joint effusions. MEDICATIONS: The patient's medications have been reviewed. LABORATORY DATA: From 04/10/2019 was reviewed. ASSESSMENT AND PLAN: 1. End-stage renal disease. The patient had hemodialysis yesterday, tolerated well. Plan for dialy sis tomorrow. 2. Hypokalemia. Will repeat with potassium chloride. 3. Anemia. Monitor hemoglobin and hematocrit levels. Continue Epogen. 4. Mineral bone disorder, monitor calcium and phosphorus levels. 5. Sepsis secondary to urinary tract infection. Continue current antibiotic regimen. 6. Volume overload. Continue ultrafiltration dialysis. 7. Bilateral lower extremity fracture. The patient is in a soft cast. Continue to monitor. 8. History of spina bifida. 9. Diabetes. Continue current insulin regimen. 10. Hypomagnesemia. Continue to monitor and replete as needed. Dictated By: GEMMA ATKINSON DO NR/NTS Conf#: [id number] DID#: [id number] CC: CHEYANNE THAKUR MD; LIZZ SPANGLER MD; Leo Kay;*EndCC*
[2019-04-10] MEDS: FLUCONAZOLE 200 MG (PMX) 100 ML IVPB SCH (12:46)
[2019-04-10] MEDS: SOD FERRIC GLUC COMPLX 125 MG in SOD CHLORIDE 0.9% 100 ML IVPB SCH (12:46)
--- NOTE | 2019-04-10 13:20 | DS ---
Date/Time of Note Date/Time of Note DATE: 04/10/19 TIME: 13:16 Discharge Summary Admission/Discharge Info Admit Date/Time April 03, 2019 at 20:02 Discharge Date/Time Discharge Diagnosis 53-year-old female who had presented to the emergency room after a fall from the wheelchair when leaving dialysis unit. Patient sustained bilateral femoral and tibia fibula fractures. After review with orthopedic surgeon, patient opted for nonsurgical management. She is currently managed as follows: 1. Bilateral multiple lower extremity fractures involving bilateral femur, tibia and fibula -Closed fractures, patient has opted for non surgical mgt / s/p splinting in ER / NWB for at least 12 weeks per Ortho 2. Severe bilateral lower extremity pain secondary to #1:improved 3. Severe sepsis with septic shock likely 2/2 MRSA bacteremia and enterococcus and Theodora UTI 4. End-stage renal disease on hemodialysis 5. Chronic hypochromic anemia likely secondary to kidney disease -Secondary to iron deficiency / Intravenous iron replacement for 5 days / s/p transfusion PRBC 6. Chronically wheelchair-bound, nonambulant from prior spinal injury/spinal bifida 7. History of hypertension 8. History of pulmonary fibrosis 9. Diabetes mellitus type 2 on insulin . Patient Condition: Stable Consults Nephrology : Ruthie Willard . Hospital Course 53-year-old female who had presented to the emergency room after she fell from her wheelchair while leaving the dialysis unit. The patient sustained bilateral femur, tibia and fibula fractures. After review with orthopedic surgeon, the patient opted for nonsurgical management. The patient is status post splinting in the ER , Ortho has recommended nonweightbearing for at least 12 weeks. The patient has no neurovascular deficits and of note is that the patient has had a prior fracture to the right distal femur, which was also being managed nonoperatively. She was also noted to be with Severe sepsis with septic shock secondary to methicillin-resistant Staphylococcus aureus bacteremia and urinary tract infection. For her Methicillin-resistant Staphylococcus aureus bacteremia: Source is not clear, the patient likely was colonized and had a skin tear which introduced infection; 2D echo was done to ensure no vegetations. Repeat blood cultures were negative, patient will complete 2 weeks of Vancomycin therapy. For her Enterococcus/Theodora urinary tract infection: Enterococcus is also sensitive to vancomycin and fluconazole for Theodora. Re: End-stage renal disease on hemodialysis, the patient does have subclavian tunneled cath, she was maintained on routine hemodialysis per nephrology. She was also treated with intravenous iron replacement to complete 5 days and was Status post transfusion of packed red cells for severe anemia When the patient arrived, she was hypotensive from sepsis and required pressor support. She has been resumed on home antihypertensives at this time All other comorbidities were also aggressively managed as per Med records. See chart for details Patient at this time has been evaluated and examined in detail and is assessed to be in stable condition and ready for discharge. . Home Meds Active Scripts Prednisone* (Prednisone*) 5 Mg Tab, 5 MG PO DAILY for 7 Days, TAB Prov:LIZZ SPANGLER. 12/11/16 Insulin Aspart* (Novolog Insulin Pen*) 100 Unit/Ml Soln, 5 UNIT SC WITH MEALS for 30 Days, EA Prov:LIZZ SPANGLER . 12/11/16 Levofloxacin* (Levaquin*) 750 Mg Tablet, 750 MG NGT DAILY@06 for 7 Days, TAB Prov:RAISSA SPANGLERDeonna . 12/11/16 Oseltamivir Phosphate* (Tamiflu*) 75 Mg Capsule, 75 MG PO BID for 7 Days, CAP Prov:LIZZ SPANGLER . 12/11/16 Insulin Aspart* (Novolog Insulin Pen*) 100 Unit/Ml Soln, 0 SC WITH MEALS BEDTIME for 30 Days, EA 151-200 = 2 UNITS 201-250 = 4 UNITS 251-300 = 6 UNITS 301-350 = 8 UNITS 351-400 =10 UNITS ABOVE 400 GIVE 12 UNITS AND CALL MD TO BE GIVEN WITH MEALS AND BEDTIME in addition to scheduled premeal novolog Prov:LIZZ SPANGLER. 12/11/16 Insulin Glargine* (Lantus*) 100 Unit/Ml Soln, 22 UNIT SC QHS for 30 Days, #1 VIAL Prov:LIZZ SPANGLER . 12/11/16 Valsartan* (Diovan*) 80 Mg Tablet, 40 MG PO BID for 30 Days, TAB HOLD IF SBP<110 OR HR<60 Prov:LEXY HOOKER MD 12/06/16 Carvedilol* (Carvedilol*) 25 Mg Tablet, 12.5 MG PO BID, #60 TAB HOLD IF SBP<110 OR HR<60 Prov:LEXY HOOKER MD 12/06/16 Reported Medications Hydrocodone Bit-Acetaminophen (Hydrocodone Bit-APAP) 5-325MG Tablet, 1 TAB PO DAILY for 23 Days 04/04/19 Lorazepam* (Lorazepam*) 0.5 Mg Tablet, 0.5 MG PO DAILY for 15 Days, #45 04/04/19 Hydralazine Hcl* (Hydralazine Hcl*) 25 Mg Tab, 25 MG PO DAILY for 30 Days, #90 04/04/19 Ondansetron Hcl* (Zofran*) 4 Mg Tablet, 4 MG PO Q6H PRN for NAUSEA AND OR VOMITING, TAB 12/09/16 Nitroglycerin* (Nitrostat*) 0.4 Mg Tab.subl, 0.4 MG SL Q5MIN PRN for CHEST PAIN, BOTTLE 12/09/16 Magnesium Oxide* (Mag-Oxide*) 400 Mg Tablet, 400 MG PO BID, TAB FOR 7 DAYS STOP 2--17 12/09/16 Clonidine Hcl* (Clonidine Hcl*) 0.1 Mg Tab, 0.1 MG PO Q8 PRN for ELEVATED BLOOD PRESSURE, TAB SBP ABOVE 160 12/09/16 Salmeterol Xinaf/Fluticasone* (Advair*) 250-50 Diskus Inhaler, 1 INH INHALATION BID, #1 INHALER 12/09/16 Acetaminophen* (Acephen*) 650 Mg Supp.rect, 650 MG VT Q4H PRN for PAIN AND OR ELEVATED TEMP, SUPP.RECT 12/09/16 Ascorbic Acid* (Vitamin C*) 500 Mg Capsule.sa, 500 MG PO DAILY, CAP 11/30/16 Sennosides* (Senna Lax*) 8.6 Mg Tablet, 2 TAB PO QHS, TAB 11/30/16 Pantoprazole* (Pantoprazole*) 40 Mg Tablet.dr, 40 MG PO AC BREAKFAST, TAB 11/30/16 Protein Supplement (Promod) 946 Ml Liquid, 30 ML PO BID 11/30/16 Multivitamin with Minerals (Multivitamins with Minerals) 1 Each Tablet, 1 EACH PO DAILY, TAB 11/30/16 Montelukast Sodium* (Montelukast Sodium*) 10 Mg Tablet, 10 MG PO DAILY, #30 TAB 11/30/16 Polyethylene Glycol* (Miralax*) 17 Gm Powd.pack, 17 GM PO DAILY, #30 PACKET 11/30/16 Sod Phosphate/Sod Biphosphate* (Fleet* Enema Pediatric) 66.6 Ml Soln, 66.6 ML VT Q72H PRN for CONSTIPATION, ENEMA 11/30/16 Ferrous Sulfate* (Ferrous Sulfate*) 325 Mg Tabec, 325 MG PO BID, TAB 11/30/16 Enoxaparin Sodium* (Enoxaparin Sodium*) 40 Mg/0.4 Ml Syringe, 40 MG SC DAILY, SYR 11/30/16 Ipratropium-Albuterol (Ipratropium-Albuterol) 0.5-3 Mg/3 Ml Ampul.neb, 3 ML INHALATION Q2H, #30 VIAL Q2H FOR WHEEZING AND Q4H FOR SOB 11/30/16 Bisacodyl* (Bisacodyl*) 10 Mg Supp, 10 MG VT Q48H PRN for PRN, SUPP 11/30/16 Cyanocobalamin* (Vitamin B-12*) 1,000 Mcg Tablet.sa, 1000 MCG PO DAILY, TAB 11/30/16 Aspirin* (Aspirin* Chew) 81 Mg Tab.chew, 81 MG PO DAILY, TAB.CHEW 11/30/16 Amlodipine Besylate* (Amlodipine Besylate*) 10 Mg Tablet, 10 MG PO DAILY, #30 TAB HOLD IF SBP<110 OR HR<60 11/30/16 Alprazolam* (Alprazolam*) 0.25 Mg Tablet, 0.25 MG PO TID PRN for ANXIETY, TAB 11/30/16 Follow-up Plan The patient is being [facility] to complete 2 weeks of antibiotic therapy. She will be assigned a primary care doctor at the SNF. She will need to follow-up with orthopedic surgery in the next 4 to 6 weeks to ensure that her fractures are improving. She will continue routine hemodialysis. . Primary Care Provider Not On Staff Doctor Time spent on discharge: > 30 minutes Pending Labs Laboratory Tests Test 04/09/19 17:25 04/09/19 20:52 04/10/19 04:41 04/10/19 08:20 Bedside 223 174 178 Glucose mg/dL (70-220) mg/dL (70-220) mg/dL (70-220) White Blood 9.3 Count 10^3/ul (4.8-1 0.8) Red Blood 2.90 Count 10^6/ul (4.20- 5.40) Hemoglobin 8.4 g/dl (12.0-16. 0) Hematocrit 27.1 % (37.0-47.0) Mean 93.4 Corpuscular fl (82.0-101.0 Volume ) Mean 29.0 Corpuscular pg (29.0-33.0) Hemoglobin Mean 31.0 Corpuscular g/dl (32.0-37. Hemoglobin Conc 0) ent Red Cell 16.3 Distribution % (11.5-14.5) Width Platelet Count 265 10^3/UL (140-4 15) Mean Platelet 13.5 Volume fl (7.4-10.4) Immature 4.800 Granulocytes % % (0.001-0.429 ) Neutrophils % 68.3 % (39.0-77.0) Lymphocytes % 16.5 % (15.0-51.0) Monocytes % 8.2 % (0.0-11.0) Eosinophils % 1.4 % (0.0-7.0) Basophils % 0.8 % (0.0-2.0) Nucleated Red 0.0 Blood Cells % /100WBC (0.0-0 .0) Immature 0.450 Granulocytes # 10^3/ul (0.0-0 .031) Neutrophils # 6.4 10^3/ul (1.6-7 .5) Lymphocytes # 1.5 10^3/ul (0.8-2 .9) Monocytes # 0.8 10^3/ul (0.3-0 .9) Eosinophils # 0.1 10^3/ul (0.0-0 .5) Basophils # 0.1 10^3/ul (0.0-0 .1) Nucleated Red 0.0 Blood Cells # 10^3/ul (0.0-0 .0) Sodium Level 140 mmol/L (135-14 4) Potassium 3.3 Level mmol/L (3.5-5. 1) Chloride Level 104 mmol/L (97-110 ) Carbon Dioxide 30 Level mmol/L (21-31) Anion Gap 6 (5-13) Blood Urea 22 Nitrogen mg/dl (7-20) Creatinine 2.50 mg/dl (0.44-1. 00) Est Glomerular 20 Filtrat mL/min (>60) Rate mL/min Glucose Level 175 mg/dl (70-220) Calcium Level 8.5 mg/dl (8.4-10. 2) Random 15.2 ug/ml Vancomycin Level Test 04/10/19 12:46 Bedside 188 Glucose mg/dL (70-220) LIZZ SPANGLER Apr 10, 2019 13:20
[2019-04-10] MEDS ORDERED: VANCOMYCIN 1 GM 250 ML IVPB ONE (15:00)
[2019-04-10] MEDS: LOSARTAN 50 MG TAB PO SCH (15:38)
[2019-04-10] MEDS: AMLODIPINE 10 MG TAB PO SCH (15:39)
[2019-04-10] MEDS ORDERED: hydrALAzine 20 MG INJ IV PRN (17:00)
[2019-04-10] MEDS ORDERED: hydrALAzine 20 MG INJ IV ONE (17:00)
[2019-04-10] MEDS: HYDROmorphONE 0.5 MG/0.5 ML SYG IV PRN (17:57)
[2019-04-10 17:58] VITALS: BP 153/78; PULSE 87
[2019-04-10] MEDS: EPOETIN ALFA-EPBX (ESRD) 10,000 UNIT/ML VIAL SC SCH (17:58)
[2019-04-10 19:25] VITALS: BP 185/86; PULSE 16; PULSE 85
[2019-04-10] MEDS: ATORVASTATIN 20 MG TAB PO SCH (22:53)
[2019-04-11] VITALS (16 sets, daily range): BP systolic 92–160; BP diastolic 49–85; PULSE 60–72; RESP 16–20
[2019-04-11] MEDS: HYDROmorphONE 0.5 MG/0.5 ML SYG IV PRN (01:21)
[2019-04-11] MEDS: ACCU-CHEK XX SCH (02:00)
[2019-04-11] MEDS: ONDANSETRON 4 MG INJ IV PRN ×2 (02:57→12:48)
[2019-04-11] MEDS: morphine 2 MG INJ IV PRN ×2 (03:07→12:49)
[2019-04-11] MEDS: INSULIN ASPART [NOVOLOG] 3 ML PEN SC SCH ×2 (07:50→11:40)
[2019-04-11] MEDS: ARFORMOTEROL TARTRATE 15MCG/2 ML AMP INH SCH (08:30)
[2019-04-11] MEDS: BUDESONIDE (NEB) 0.5MG/2ML AMP INH SCH (08:38)
--- NOTE | 2019-04-11 08:39 | PN ---
DATE: 04/11/2019 SUBJECTIVE: The patient is stable, no events overnight. OBJECTIVE: VITAL SIGNS: Blood pressure is 157/72, respiration 18, pulse 69, temperature 98.0. HEENT: Head is normocephalic. NECK: Supple. HEART: Regular rate. LUNGS: Show diminished breath sounds at the base. ABDOMEN: Soft, nontender to palpation without rebound or guarding. EXTREMITIES: Negative for clubbing, cyanosis, no edema. The patient's lower extremity is in a soft cast. NEUROLOGIC: No change in exam. DERMATOLOGIC: No rashes. MUSCULOSKELETAL: No joint effusions. MEDICATIONS: Reviewed. LABORATORY DATA: Has been reviewed. ASSESSMENT AND PLAN: 1. End-stage renal disease. Plan is for hemodialysis today. We will dialyze 3 hours 3k bath, calci um2.5. 2. Hyperkalemia, resolved. 3. Anemia. Monitor hemoglobin and hematocrit levels. We will give Epogen as needed. 4. Mineral bone disorder, monitor calcium and phosphorus levels. 5. Sepsis secondary to urinary tract infection. Continue current antibiotic regimen. 6. Volume overload, consultation dialysis. 7. Bilateral lower extremity fracture. The patient is in soft cast. Continue to monitor. 8. History of spina bifida. 9. Diabetes. Continue current insulin regimen. 10. Hypomagnesemia. Continue to monitor and repeat cultures. Dictated By: GEMMA MERIDA/NTS Conf#: [id number] DID#: [id number] CC: CHEYANNE THAKUR MD;*EndCC*
[2019-04-11] MEDS: SEVELAMER CARBONATE 800 MG TABLET PO SCH ×2 (08:58→12:29)
[2019-04-11] MEDS: MONTELUKAST 10 MG TAB PO SCH (08:59)
[2019-04-11] MEDS: FAMOTIDINE 20 MG TAB PO SCH (08:59)
[2019-04-11] MEDS: DOCUSATE SODIUM 100 MG CAP PO SCH (08:59)
[2019-04-11] MEDS: POLYETHYLENE GLYCOL 17 GM PACKET PO SCH (08:59)
[2019-04-11] MEDS: ASPIRIN (EC) 81 MG TAB PO SCH (08:59)
[2019-04-11] MEDS: LOSARTAN 50 MG TAB PO SCH (09:00)
[2019-04-11] MEDS: AMLODIPINE 10 MG TAB PO SCH (09:00)
[2019-04-11] MEDS: HEPARIN 5,000 UNIT/1 ML VIAL SC SCH (09:01)
[2019-04-11] MEDS: INSULIN GLARGINE [LANTus] (100 UNITS/ML) SYG SC SCH (09:55)
[2019-04-11] MEDS: HEPARIN 1000 UNITS/ML 10 ML INJ CATHETER SCH (11:37)
[2019-04-11] MEDS: FLUCONAZOLE 200 MG (PMX) 100 ML IVPB SCH (12:26)
--- NOTE | 2019-04-11 22:39 | EN ---
Date/Time of Note Date/Time of Note DATE: 04/11/19 TIME: 22:37 Event Note Medicine Medicine Event Note Discharge Summary addendum Admission/Discharge Info Admit Date/Time April 03, 2019 at 20:02 Discharge Date/Time 04/11/19 Discharge Diagnosis 53-year-old female who had presented to the emergency room after a fall from the wheelchair when leaving dialysis unit. Patient sustained bilateral femoral and tibia fibula fractures. After review with orthopedic surgeon, patient opted for nonsurgical management. She is currently managed as follows: 1. Bilateral multiple lower extremity fractures involving bilateral femur, tibia and fibula -Closed fractures, patient has opted for non surgical mgt / s/p splinting in ER / NWB for at least 12 weeks per Ortho 2. Severe bilateral lower extremity pain secondary to #1:improved 3. Severe sepsis with septic shock likely 2/2 MRSA bacteremia and enterococcus and Theodora UTI 4. End-stage renal disease on hemodialysis 5. Chronic hypochromic anemia likely secondary to kidney disease -Secondary to iron deficiency / Intravenous iron replacement for 5 days / s/p transfusion PRBC 6. Chronically wheelchair-bound, nonambulant from prior spinal injury/spinal bifida 7. History of hypertension 8. History of pulmonary fibrosis 9. Diabetes mellitus type 2 on insulin . Patient Condition: Stable Consults Nephrology : Ruthie Willard . Hospital Course 53-year-old female who had presented to the emergency room after she fell from her wheelchair while leaving the dialysis unit. The patient sustained bilateral femur, tibia and fibula fractures. After review with orthopedic surgeon, the patient opted for nonsurgical management. The patient is status post splinting in the ER , Ortho has recommended nonweightbearing for at least 12 weeks. The patient has no neurovascular deficits and of note is that the patient has had a prior fracture to the right distal femur, which was also being managed nonoperatively. She was also noted to be with Severe sepsis with septic shock secondary to methicillin-resistant Staphylococcus aureus bacteremia and urinary tract infection. For her Methicillin-resistant Staphylococcus aureus bacteremia: Source is not clear, the patient likely was colonized and had a skin tear which introduced infection; 2D echo was done to ensure no vegetations. Repeat blood cultures were negative, patient will complete 2 weeks of Vancomycin therapy. For her Enterococcus/Theodora urinary tract infection: Enterococcus is also sensitive to vancomycin and fluconazole for Theodora. Re: End-stage renal disease on hemodialysis, the patient does have subclavian tunneled cath, she was maintained on routine hemodialysis per nephrology. She was also treated with intravenous iron replacement to complete 5 days and was Status post transfusion of packed red cells for severe anemia When the patient arrived, she was hypotensive from sepsis and required pressor support. She has been resumed on home antihypertensives at this time All other comorbidities were also aggressively managed as per Med records. See chart for details Discharge was held yesterday to get the patient back on her routine HD schedule. Patient at this time has been evaluated and examined in detail and is assessed to be in stable condition and ready for discharge. . Discharge Meds For complete list, please see medication reconciliation Follow-up Plan [facility] of [facility]. She will be assigned a primary care doctor at the SNF. She will need to follow-up with orthopedic surgery in the next 4 to 6 weeks to ensure that her fractures are improving. She will continue routine hemodialysis. . Primary Care Provider Not On Staff Doctor Time spent on discharge: > 30 minutes LIZZ SPANGLER Apr 11, 2019 22:39
== END 2019-04-11 16:17 | DRG 562 ==
LOC: E/R 16:51 → PP2 20:02 → EDBEDREQ 20:10 → ICU 04-05 05:43 → MS1 04-07 13:23
PROVIDERS: ADMIT Family Medicine; ATTEND Family Medicine
PROC: 05H633Z Insertion of Infusion Device into Left Subclavian Vein, Percutaneous Approach (ICD-10-PCS; principal; 2019-04-05)
PROC: 5A1D70Z Performance of Urinary Filtration, Intermittent, Less than 6 Hours Per Day (ICD-10-PCS; 2019-04-05)
PROC: 30233N1 Transfusion of Nonautologous Red Blood Cells into Peripheral Vein, Percutaneous Approach (ICD-10-PCS; 2019-04-06)
PROC: 5A1D70Z Performance of Urinary Filtration, Intermittent, Less than 6 Hours Per Day (ICD-10-PCS; 2019-04-09)
PROC: 5A1D70Z Performance of Urinary Filtration, Intermittent, Less than 6 Hours Per Day (ICD-10-PCS; 2019-04-11)
DX: S82.402A Unspecified fracture of shaft of left fibula, initial encounter for closed fracture (principal); R65.21 Severe sepsis with septic shock; N18.6 End stage renal disease; S72.434A Nondisplaced fracture of medial condyle of right femur, initial encounter for closed fracture; S72.492A Other fracture of lower end of left femur, initial encounter for closed fracture; S82.191A Other fracture of upper end of right tibia, initial encounter for closed fracture; I12.0 Hypertensive chronic kidney disease with stage 5 chronic kidney disease or end stage renal disease; J96.10 Chronic respiratory failure, unspecified whether with hypoxia or hypercapnia; S82.401A Unspecified fracture of shaft of right fibula, initial encounter for closed fracture; S82.192A Other fracture of upper end of left tibia, initial encounter for closed fracture; E11.22 Type 2 diabetes mellitus with diabetic chronic kidney disease; Z99.2 Dependence on renal dialysis; W05.0XXA Fall from non-moving wheelchair, initial encounter; Q05.9 Spina bifida, unspecified; Z79.4 Long term (current) use of insulin; D63.1 Anemia in chronic kidney disease; Z99.3 Dependence on wheelchair; E83.42 Hypomagnesemia; E87.5 Hyperkalemia
CPT/HCPCS: 36415; 36430; 36569; 71045; 72131; 73550; 73562; 73590; 73610; 74018; 76937; 80048; 80053; 80061; 80202; 81001; 82533; 82550; 82553; 82728; 82962; 83036; 83540; 83605; 83735; 83874; 84100; 84443; 84484; 85025; 85610; 85730; 86706; 86850; 86900; 86901; 86920; 87081; 87086; 87340; 90935; 93005; 93306; 94640; 94664; 96372; 96374; 96375; 96376; 97110; 97163; C1769; J0360; J0696; J1170; J1200; J1644; J1815; J2270; J2405; J2765; J2916; J3370; J3475; J7030; J7040; J7042; P9016; P9047; Q5105

== ENCOUNTER 2019-04-19 14:51 | Observation (INO) | payer OTHER, MEDICAID ==
[~2019-04-19] VITALS: Ht 152.4 cm; Wt 64.8 kg
[~2019-04-19 14:51] MED LIST changes: +HYDR-3601 PO; +HYDR-3671 PO; +LORA0.5T PO
[2019-04-19 14:56] VITALS: Ht 152.4 cm; Wt 64.8 kg
[2019-04-19] MEDS ORDERED: ACET-2047 PO (16:10)
[2019-04-19] MEDS ORDERED: SENN-120 PO (16:11)
[2019-04-19] MEDS ORDERED: LANT3I SC (16:11)
[2019-04-19] MEDS ORDERED: ADV25050 INHALATION (16:11)
[2019-04-19] MEDS ORDERED: HEPA500021 IJ (16:12)
[2019-04-19] MEDS ORDERED: NOVO3I SC (16:13)
[2019-04-19] MEDS ORDERED: MONT10TA21 PO (16:13)
[2019-04-19] MEDS ORDERED: VALS40TA2 PO (16:17)
[2019-04-19] MEDS ORDERED: IPRA3AMP29 INHALATION (16:18)
[2019-04-19] MEDS ORDERED: NITR0.4T32 SL (16:19)
[2019-04-19] MEDS ORDERED: AMLO-147 PO (16:20)
[2019-04-19] MEDS ORDERED: HYDR-4011 PO (16:21)
[2019-04-19] MEDS ORDERED: ASPI-817 PO (16:21)
[2019-04-19] MEDS ORDERED: FOLI0.8T2 PO (16:22)
[2019-04-19] MEDS ORDERED: CYAN-23 PO (16:23)
[2019-04-19] MEDS ORDERED: ATOR20TA38 PO (16:23)
[2019-04-19] MEDS ORDERED: BISA10SU55 RC (16:24)
[2019-04-19] MEDS ORDERED: ASC500 PO (16:25)
[2019-04-19] MEDS ORDERED: POLY17PO28 PO (16:26)
[2019-04-19] MEDS ORDERED: CARV12.579 PO (16:26)
[2019-04-19] MEDS ORDERED: CLON-379 PO (16:28)
[2019-04-19] MEDS ORDERED: PROT946L PO (16:28)
[2019-04-19] MEDS ORDERED: FAMO20TA18 PO (16:29)
[2019-04-19] MEDS ORDERED: SEVE800T7 PO (16:30)
[2019-04-19] MEDS ORDERED: NA P230E RC (16:32)
[2019-04-19] MEDS ORDERED: HEPARIN 1000 UNITS/ML 10 ML INJ ONE (18:15)
[2019-04-19] MEDS ORDERED: FENTAnyl 50 MCG/ML VIAL ONE (18:15)
[2019-04-19] MEDS ORDERED: LIDOCAINE 1% (MDV) 20 ML INJ ONE ×2 (18:15→18:16)
[2019-04-19] MEDS ORDERED: MIDAZOLAM 1 MG/ML 2 ML INJ ONE (18:16)
[2019-04-19] MEDS ORDERED: KAYPO PO (19:24)
[2019-04-19] MEDS ORDERED: NA POLYST SULFON 15 GM/60 ML BTL PO ONE ×2 (19:30)
[2019-04-19] MEDS ORDERED: SODIUM POLYSTYRENE 15 GM KIT (POWDER + SORBITOL) PO ONE (20:00)
--- NOTE | 2019-04-19 22:35 | EN ---
Date/Time of Note Date/Time of Note DATE: 04/19/19 TIME: 22:34 ER Progress Note The patient was endorsed to me pending discharge with dialysis tomorrow. Unfortunately the patient's family member is here and states that the dialysis clinic is closed tomorrow. She will not be able to get dialysis. She has hyperkalemia. While the patient had placement of a new HD catheter I do not feel that discharge planning is appropriate. Patient had repeat laboratory testing sent. EKG was ordered. The patient will be admitted for initiation of dialysis tomorrow Patient did receive Kayexalate earlier during ER course. EKG: I reviewed and interpreted a 12-lead EKG. Rhythm: Normal sinus rhythm ST Changes: No contiguous ST segment elevations T waves: No contiguous T wave inversions Impression: No evidence of acute cardiac ischemia Repeat labs pending. To be followed by admitting team Accepting care team and consultations: I discussed the current laboratory data, diagnostic imaging and emergency care provided. Admitting team: Dr. Villatoro Admitting team indication: Insurance directed Diagnostic impression: End-stage renal disease on dialysis Hyperkalemia DEACON MARCUS MD Apr 19, 2019 22:35
[2019-04-19] MEDS ORDERED: ALBUTEROL 0.083% (NEB) 2.5 MG/3 ML AMP HHN STA (22:37)
[2019-04-19] MEDS ORDERED: ACETAMINOPHEN 325 MG TAB PO PRN (23:00)
[2019-04-19] MEDS ORDERED: ONDANSETRON 4 MG INJ IV PRN (23:00)
--- NOTE | 2019-04-19 23:46 | HP ---
Date/Time of Note Date/Time of Note DATE: 04/19/19 TIME: 23:38 Assessment/Plan VTE Prophylaxis Pharmacological prophylaxis: heparin Lines/Catheters IV Catheter Type (from Nrsg): Mid Line Assessment/Plan Hospital Course 1. Malfunction Dialysis catheter: Malfunctioning Royce catheter. Was exchanged by radiology. Will obtain a chest x-ray. Patient's dialysis center is closed on Monday and she is in need of dialysis. She will be admitted and nephrology be consulted for likely dialysis in the a.m. 2. Recent MRSA bacteremia: Patient is on vancomycin for a 2-week course. Will continue vancomycin at the current time, will need to confirm exact initiation date 3. bilateral multiple lower extremity fractures involving bilateral femur, tibia and fibula ; Closed fractures, patient has opted for non surgical mgt / s/p splinting in ER / NWB for at least 12 weeks per Ortho. She was scheduled to follow-up with Ortho in 4 to 6 weeks upon discharge last time. 4 end-stage renal disease: On hemodialysis Monday. Patient missed her dialysis on Monday as her Royce catheter was not functioning. She was admitted to her dialysis as her outpatient dose center was closed on Saturdays. Patient's creatinine was slightly elevated from her baseline. Her potassium was also elevated at 6 for which she received Kayexalate we will monitor potassium levels. 5. Hyperkalemia: Secondary to missed dialysis, end-stage renal disease. She was treated with Kayexalate in the emergency department. Recheck BMP and follow. 6. spina bifida: Chronic 7. lumbar spinal injury: status post trauma at the age of 15. Resulting in Wheelchair-bound status, very limited lower extremity motor function 8. Diabetes mellitus: Resume patient's home insulin, insulin sliding scale, 9. hypertension: Resume patient's home medications, will need to confirm patient's home medications 10. Chronic respiratory failure secondary to pulmonary fibrosis: Resume home inhalers 11. DVT GI prophylaxis: heparin sub q, no GI prophylaxis indicated Further treatment strategy will be implemented as per the clinical course Result Diagram: 04/19/19222504/19/196 Results 24hrs Laboratory Tests Test 04/19/19 15:05 04/19/19 22:26 Sodium Level 136 139 Potassium Level 6.0 H 5.5 H Chloride Level 102 101 Carbon Dioxide Level 24 28 Anion Gap 10 10 Blood Urea Nitrogen 40 H 39 H Creatinine 2.85 H 3.24 H Est Glomerular Filtrat Rate mL/min 17 L 15 L Glucose Level 162 174 Calcium Level 8.6 9.4 White Blood Count 6.8 # Red Blood Count 3.60 L Hemoglobin 10.5 L Hematocrit 34.6 L Mean Corpuscular Volume 96.1 Mean Corpuscular Hemoglobin 29.2 Mean Corpuscular Hemoglobin Concent 30.3 L Red Cell Distribution Width 17.5 H Platelet Count 297 Mean Platelet Volume 13.3 H Immature Granulocytes % 1.500 H Neutrophils % 63.2 Lymphocytes % 26.1 Monocytes % 6.5 Eosinophils % 2.1 Basophils % 0.6 Nucleated Red Blood Cells % 0.0 Immature Granulocytes # 0.100 H Neutrophils # 4.3 Lymphocytes # 1.8 Monocytes # 0.4 Eosinophils # 0.1 Basophils # 0.0 Nucleated Red Blood Cells # 0.0 Prothrombin Time 12.5 Prothrombin Time Ratio 1.0 INR International Normalized Ratio 0.92 Activated Partial Thromboplast Time 27.7 HPI/ROS Admit Date/Time Admit Date/Time Hx of Present Illness Chief complaint: Dysfunctional Royce catheter This is a 53-year-old female who originally was brought in from the dialysis c enter for nonfunctioning with an catheter to her left chest. She was seen by radiology and had an exchange of her Royce catheter. She was being ready to be sent back to [facility] at which point it was found that the patient's dialysis center was not open for Saturdays. The decision was then made to admit the patient as it was also noted to be that the patient's blood work did reveal a hyperkalemia of 6. Patient was given Kayexalate in the emergency department. Patient is wheelchair-bound at baseline. She recently was admitted to [facility] after sustaining bilateral lower extremity fractures which were not operated on. She was also found to have bacteremia for which she was placed on vancomycin for duration of 2 weeks which she is still continuing. Allergies: Penicillin, atenolol, prochlorperazine, Bactrim Medications: See Jan Const: As per HPI Eyes : No pain discharge or redness or change in visual acuity ENT: No pain, sore throat, congestion, congestion, dysphagia or discharge Respiratory: No shortness of breath, cough, sputum, wheezing, or pleuritic pain Cardiovascular: No chest pain, palpitation, PND, or edema GI : no change in appetite, abdominal pain, nausea, vomiting, diarrhea, constipation, or change in the color his stool Genitourinary: As per HPI Musculoskeletal: As per HPI Skin: No rash, bruising or hives Neuro: No headache, dizziness, syncope, seizure, focal weakness Endocrine: No polyuria, polydipsia, temperature intolerance Psych: No hallucination, depression, anxiety or suicidal ideation PMH/Family/Social Past Medical History Spina bifida, end-stage renal disease on dialysis Monday, lumbar spinal injury, diabetes mellitus, hypertension, hx of pulm fibrosis, Bilateral multiple lower extremity fractures involving bilateral femur, tibia and fibula, MRSA bacteremia Medications Current Medications Ondansetron HCl (Zofran Inj) 4 mg ER BRIDGE PRN IV NAUSEA/VOMITING; Start 04/19/19 at 23:00; Stop 04/20/19 at 22:59 Acetaminophen (Tylenol Tab) 650 mg ER BRIDGE PRN PO .MILD PAIN 1-3 OR TEMP; Start 04/19/19 at 23:00; Stop 04/20/19 at 22:59 Coded Allergies: Penicillins (Unverified Allergy, Unknown, 04/19/19) atenolol (Unverified Allergy, Unknown, 04/19/19) prochlorperazine (Unverified Allergy, Unknown, 04/19/19) sulfamethoxazole (Unverified Allergy, Unknown, 04/19/19) trimethoprim (Unverified Allergy, Unknown, 04/19/19) Past Surgical History left permacath Family History Significant Family History: no pertinent family hx Social History Alcohol Use: none Smoking Status: Never smoker Drug Use: none Exam/Review of Systems Vital Signs Vitals Vital Signs Date Temp Pulse Resp B/P (MAP) Pulse Ox O2 O2 Flow FiO2 Time Delivery Rate 04/19/19 73 18 141/67 100 Venturi 23:11 (91) Mask 04/19/19 2.0 23:01 04/19/19 99.4 18:00 Exam Exam General: This a pleasant female currently in bed in no acute distress HEENT: Atraumatic, normocephalic. The pupils are equal, round and reactive. Extraocular motor are intact Neck: Supple with full range of motion. No rigidity or meningismus Chest: Nontender Lungs: Clear to auscultation bilaterally no crackles rales or wheezing Heart: Normal S1-S2, Regular rhythm and rate. No murmur, S3, or S4 Abdomen: Soft , nontender, nondistended , bowel sounds are present. No guarding no rebound tenderness , No masses or organomegaly. No costovertebral temporal angle mass Extremities: Minimal motor function of bilateral lower extremity, patient is wheelchair-bound Neurologic: Normal mental status, speech normal, cranial nerves II through XII are intact, motor and sensory are intact, CHEYANNE THAKUR Apr 19, 2019 23:46
[2019-04-20] VITALS (25 sets, daily range): BP systolic 91–173; BP diastolic 60–81; PULSE 60–90; RESP 16–20
[2019-04-20] MEDS ORDERED: NACL 0.9% 3 ML SYG IV SCH
[2019-04-20] MEDS ORDERED: ONDANSETRON 4 MG TAB PO PRN
[2019-04-20] MEDS ORDERED: DOCUSATE SODIUM 100 MG CAP PO PRN
[2019-04-20] MEDS ORDERED: BISACODYL (EC) 5 MG TAB PO PRN
[2019-04-20] MEDS ORDERED: ACETAMINOPHEN 325 MG TAB PO PRN
[2019-04-20] MEDS ORDERED: traMADol 50 MG TAB PO PRN (05:00)
[2019-04-20] MEDS ORDERED: VANCOMYCIN 1 GM 250 ML IVPB ONE (05:00)
[2019-04-20] MEDS ORDERED: VANCOMYCIN IV PER PHARMACY XX SCH (05:00)
[2019-04-20] MEDS: POLYETHYLENE GLYCOL 17 GM PACKET PO SCH ×2 (05:28→08:41)
[2019-04-20] MEDS: HEPARIN 5,000 UNIT/1 ML VIAL SC SCH ×4 (05:54→21:54)
--- NOTE | 2019-04-20 08:42 | PN ---
Date/Time of Note Date/Time of Note DATE: 04/20/19 TIME: 08:30 Assessment/Plan VTE Prophylaxis SCD contraindicated: bilateral LE trauma (Bilateral leg fractures) Pharmacological prophylaxis: heparin Lines/Catheters IV Catheter Type (from Nrs): PORT A CATH Urinary Cath still in place: Yes Reason Cath still needed: urinary retention Assessment/Plan Problems: (1) Hemodialysis catheter malfunction Onset Date: ~ 04/19/2019 Status: Acute Comment: She has had her catheter replaced. Unfortunately her hemodialysis center does not do dialysis on Saturdays which necessitated her admission so she can be dialyzed here and sent back to her ECF. Neurology consultation has been called and is coming Qualifiers: Encounter type: initial encounter Qualified Codes: T82.41XA - Breakdown (mechanical) of vascular dialysis catheter, initial encounter (2) Closed fracture of right proximal tibia Status: Acute Comment: Noted. Qualifiers: Encounter type: subsequent encounter Fracture morphology: unspecified fracture morphology Fracture healing: with routine healing Qualified Codes: S82.101D - Unspecified fracture of upper end of right tibia, subsequent encounter for closed fracture with routine healing (3) Fracture of femur, distal, left, closed Status: Acute Comment: Noted. Qualifiers: Encounter type: subsequent encounter Fracture morphology: unspecified fracture morphology Fracture healing: with routine healing Qualified Codes: S72.402D - Unspecified fracture of lower end of left femur, subsequent encounter for closed fracture with routine healing (4) Spina bifida Status: Chronic Comment: Stable but noted. Qualifiers: Spinal region: lumbar Presence of hydrocephalus: without hydrocephalus Qualified Codes: Q05.7 - Lumbar spina bifida without hydrocephalus (5) Diabetes mellitus type 2 in nonobese Status: Chronic Comment: Adequate glycemic control (6) Essential hypertension Status: Chronic Comment: Adequate blood pressure control (7) Ambulatory dysfunction Status: Chronic Comment: Chronic issue. (8) Chronic pain due to injury Status: Chronic Comment: Fair control at this time. (9) Hyperlipidemia associated with type 2 diabetes mellitus Status: Chronic Comment: Continue with statin therapy (10) Gram positive septicemia Status: Acute Comment: As per the plan at the last admission continue with vancomycin (11) Horseshoe kidney Status: Chronic Comment: Noted. Result Diagram: 04/20/19 0559 04/20/19 0559 Results 24hrs Laboratory Tests Test 04/19/19 15:05 04/19/19 22:26 04/20/19 05:59 Sodium Level 136 139 139 Potassium Level 6.0 H 5.5 H 5.2 H Chloride Level 102 101 104 Carbon Dioxide Level 24 28 26 Anion Gap 10 10 9 Blood Urea Nitrogen 40 H 39 H 41 H Creatinine 2.85 H 3.24 H 3.09 H Est Glomerular Filtrat Rate mL/min 17 L 15 L 16 L Glucose Level 162 174 165 Calcium Level 8.6 9.4 8.6 White Blood Count 6.8 # 7.6 Red Blood Count 3.60 L 3.03 L Hemoglobin 10.5 L 8.9 L Hematocrit 34.6 L 29.5 L Mean Corpuscular Volume 96.1 97.4 Mean Corpuscular Hemoglobin 29.2 29.4 Mean Corpuscular Hemoglobin Concent 30.3 L 30.2 L Red Cell Distribution Width 17.5 H 17.3 H Platelet Count 297 265 Mean Platelet Volume 13.3 H 12.9 H Immature Granulocytes % 1.500 H 1.100 H Neutrophils % 63.2 74.0 Lymphocytes % 26.1 17.1 Monocytes % 6.5 5.3 Eosinophils % 2.1 2.0 Basophils % 0.6 0.5 Nucleated Red Blood Cells % 0.0 0.0 Immature Granulocytes # 0.100 H 0.080 H Neutrophils # 4.3 5.6 Lymphocytes # 1.8 1.3 Monocytes # 0.4 0.4 Eosinophils # 0.1 0.2 Basophils # 0.0 0.0 Nucleated Red Blood Cells # 0.0 0.0 Prothrombin Time 12.5 Prothrombin Time Ratio 1.0 INR International Normalized Ratio 0.92 Activated Partial Thromboplast Time 27.7 Hemoglobin A1c 5.8 Magnesium Level 2.0 Total Bilirubin 0.3 Direct Bilirubin 0.00 Indirect Bilirubin 0.3 Aspartate Amino Transf (AST/SGOT) 17 Alanine Aminotransferase (ALT/SGPT) 11 L Alkaline Phosphatase 163 H Total Protein 6.0 L Albumin 3.2 L Globulin 2.80 Albumin/Globulin Ratio 1.14 Triglycerides Level 252 H Cholesterol Level 71 L LDL Cholesterol, Calculated 3 HDL Cholesterol 18 L Cholesterol/HDL Ratio 3.9 Thyroid Stimulating Hormone (TSH) 2.710 CC: GEMMA ATKINSON DO ; Subjective 24 Hr Interval Summary Free Text/Dictation Patient complains of back pain. Constitutional: no complaints (Eyes fevers chills or sweats) Respiratory: no complaints Cardiovascular: no complaints Gastrointestinal: no complaints Musculoskeletal: back pain Exam/Review of Systems Exam Vitals Vital Signs Date Temp Pulse Resp B/P (MAP) Pulse Ox O2 O2 Flow FiO2 Time Delivery Rate 04/20/19 68 08:14 04/20/19 98.4 18 128/60 98 Nasal 07:34 (82) Cannula 04/19/19 2.0 23:01 Constitutional: alert, oriented Neck: supple, non-tender Respiratory: clear to auscultation, normal air movement Cardiovascular: regular rate and rhythm, nl pulses Gastrointestinal: soft, nl liver, spleen, non-tender Skin: nl turgor, other (No decubiti, no cellulitis) Results Results 24hrs Laboratory Tests Test 04/19/19 15:05 04/19/19 22:26 04/20/19 05:59 Sodium Level 136 139 139 Potassium Level 6.0 H 5.5 H 5.2 H Chloride Level 102 101 104 Carbon Dioxide Level 24 28 26 Anion Gap 10 10 9 Blood Urea Nitrogen 40 H 39 H 41 H Creatinine 2.85 H 3.24 H 3.09 H Est Glomerular Filtrat Rate mL/min 17 L 15 L 16 L Glucose Level 162 174 165 Calcium Level 8.6 9.4 8.6 White Blood Count 6.8 # 7.6 Red Blood Count 3.60 L 3.03 L Hemoglobin 10.5 L 8.9 L Hematocrit 34.6 L 29.5 L Mean Corpuscular Volume 96.1 97.4 Mean Corpuscular Hemoglobin 29.2 29.4 Mean Corpuscular Hemoglobin Concent 30.3 L 30.2 L Red Cell Distribution Width 17.5 H 17.3 H Platelet Count 297 265 Mean Platelet Volume 13.3 H 12.9 H Immature Granulocytes % 1.500 H 1.100 H Neutrophils % 63.2 74.0 Lymphocytes % 26.1 17.1 Monocytes % 6.5 5.3 Eosinophils % 2.1 2.0 Basophils % 0.6 0.5 Nucleated Red Blood Cells % 0.0 0.0 Immature Granulocytes # 0.100 H 0.080 H Neutrophils # 4.3 5.6 Lymphocytes # 1.8 1.3 Monocytes # 0.4 0.4 Eosinophils # 0.1 0.2 Basophils # 0.0 0.0 Nucleated Red Blood Cells # 0.0 0.0 Prothrombin Time 12.5 Prothrombin Time Ratio 1.0 INR International Normalized Ratio 0.92 Activated Partial Thromboplast Time 27.7 Hemoglobin A1c 5.8 Magnesium Level 2.0 Total Bilirubin 0.3 Direct Bilirubin 0.00 Indirect Bilirubin 0.3 Aspartate Amino Transf (AST/SGOT) 17 Alanine Aminotransferase (ALT/SGPT) 11 L Alkaline Phosphatase 163 H Total Protein 6.0 L Albumin 3.2 L Globulin 2.80 Albumin/Globulin Ratio 1.14 Triglycerides Level 252 H Cholesterol Level 71 L LDL Cholesterol, Calculated 3 HDL Cholesterol 18 L Cholesterol/HDL Ratio 3.9 Thyroid Stimulating Hormone (TSH) 2.710 Medications Medication Current Medications Ondansetron HCl (Zofran Inj) 4 mg ER BRIDGE PRN IV NAUSEA/VOMITING; Start 04/19/19 at 23:00; Stop 04/20/19 at 22:59 Acetaminophen (Tylenol Tab) 650 mg ER BRIDGE PRN PO .MILD PAIN 1-3 OR TEMP; Start 04/19/19 at 23:00; Stop 04/20/19 at 22:59 IV Flush (NS 3 ml) 3 ml PER PROTOCOL IV ; Start 04/20/19 at 00:00 Ondansetron HCl (Zofran Tab) 4 mg Q6H PRN PO NAUSEA/VOMITING; Start 04/20/19 at 00:00 Acetaminophen (Tylenol Tab) 650 mg Q6H PRN PO .PAIN 1-3 OR TEMP; Start 04/20/19 at 00:00 Acetaminophen/ Hydrocodone Bitart ([place] (5/325)) 1 tab Q6H PRN PO .PAIN 4-6; Start 04/20/19 at 00:00 Docusate Sodium (Colace) 100 mg Q12H PRN PO .CONSTIPATION; Start 04/20/19 at 00:00 Bisacodyl (Dulcolax) 5 mg DAILY PRN PO .CONSTIPATION; Start 04/20/19 at 00:00 Heparin Sodium (Porcine) (Heparin (5000 Units/1ml)) 5,000 unit Q8 SC Last administered on 04/20/19at 05:54; Admin Dose 5,000 UNIT; Start 04/20/19 at 00:00 Vancomycin HCl (Vanco Iv Per Pharmacy) VANCOMYCIN PER PHARMACY PER PROTOCOL XX ; Start 04/20/19 at 05:00; Stop 6/20/19 at 04:59 Tramadol HCl (Ultram) 50 mg Q6H PRN PO MODERATE PAIN LEVEL 4-6 Last administered on 04/20/19at 05:31; Admin Dose 50 MG; Start 04/20/19 at 05:00 Polyethylene Glycol (Miralax) 17 gm DAILY PO Last administered on 04/20/19at 05:28; Admin Dose 17 GM; Start 04/20/19 at 05:00 BLAS GTZ MD Apr 20, 2019 08:41
[2019-04-20] MEDS: HYDROCODONE/APAP (5/325) TAB PO PRN (09:08)
--- NOTE | 2019-04-20 12:40 | CONS ---
Assessment/Plan Assessment/Plan Hospital Course (Demo Recall) 1. esrd: chronic HD schedule MWF - changed malfunctioning HD catheter - HD today - routine access care 2. hyperkalemia: - HD with low k bath - low k diet 3. anemia: - epogen as needed with HD 4. Bone Mineral Disease: - monitor ca and phos 5. recent MRSA bacteremia: - cont vancomycin iv 6. b.l multiple leg fractures: - nonsurigcal managamenet - splinting - f/u with ortho as outpt 7. spina bifida: - chronic 8. DM: - cont ssi 9. HTN: - cont current meds and titrate as needed Consultation Date/Type/Reason Admit Date/Time Date/Time of Note DATE: 04/20/19 TIME: 12:34 Hx of Present Illness Pt is a 53yo F with hx of ESRD, DM, HTN, pulm fibriosis and spina bifida who presented with malfunctioning HD catheter. Pt has been on HD for the past few months. She has been receiving HD via her permacath on [facility]. Her last HD was on monday and on monday presented to her HD center but was unable to have HD due to malfunctioning catheter. Pt was eveluated in the ER with K of 6. She a new permacath placed. She currently denies shortness of breath or n/v. She is still making urine. ROS Const: As per HPI Eyes : No pain discharge or redness or change in visual acuity ENT: No pain, sore throat, congestion, congestion, dysphagia or discharge Respiratory: No shortness of breath, cough, sputum, wheezing, or pleuritic pain Cardiovascular: No chest pain, palpitation, PND, or edema GI : no change in appetite, abdominal pain, nausea, vomiting, diarrhea, constipation, or change in the color his stool Genitourinary: As per HPI Musculoskeletal: As per HPI Skin: No rash, bruising or hives Neuro: No headache, dizziness, syncope, seizure, focal weakness Endocrine: No polyuria, polydipsia, temperature intolerance Psych: No hallucination, depression, anxiety or suicidal ideation PMH/Family/Social PMH/Family/Social Past Medical History Spina bifida, end-stage renal disease on dialysis Monday, lumbar spinal injury, diabetes mellitus, hypertension, hx of pulm fibrosis, Bilateral multiple lower extremity fractures involving bilateral femur, tibia and fibula, MRSA bacteremia Medications Current Medications per emr Coded Allergies: Penicillins (Unverified Allergy, Unknown, 04/19/19) atenolol (Unverified Allergy, Unknown, 04/19/19) prochlorperazine (Unverified Allergy, Unknown, 04/19/19) sulfamethoxazole (Unverified Allergy, Unknown, 04/19/19) trimethoprim (Unverified Allergy, Unknown, 04/19/19) Past Surgical History left permacath Family History Significant Family History: no pertinent family hx Social History Alcohol Use: none Smoking Status: Never smoker Drug Use: none Past Medical History Home Meds Active Scripts Sodium Polystyrene Sulfonate (Kayexalate) 15 Gm/60 Ml Susp, 15 GM PO DAILY, #1 ML Prov:IGORSENAITCHING DO 04/19/19 Reported Medications Na Phos,M-B/Na Phos,Di-Ba (Fleet Enema Extra) 230 Ml Enema, 118 ML RC Q72H, ENEMA 04/19/19 Sevelamer Carbonate* (Renvela*) 800 Mg Tablet, 0.8 GM PO WITH MEALS, TAB 04/19/19 Famotidine* (Famotidine*) 20 Mg Tablet, 20 MG PO DAILY, #30 TAB 04/19/19 Protein Supplement (Promod) 946 Ml Liquid, 30 ML PO QHS 04/19/19 Clonidine Hcl* (Clonidine Hcl*) 0.1 Mg Tab, 0.1 MG PO Q8H, TAB HOLD IF SBP<110 OR HR<60 04/19/19 Polyethylene Glycol* (Polyethylene Glycol*) 17 Gm Powd.pack, 17 GM PO DAILY, #30 PACKET 04/19/19 Carvedilol* (Carvedilol*) 12.5 Mg Tablet, 12.5 MG PO BID, #60 TAB HOLD IF SBP<110 OR HR<60 04/19/19 Ascorbic Acid (Vitamin C) 500 Mg Tab, 500 MG PO BID, TAB 04/19/19 Bisacodyl (Dulcolax) 10 Mg Supp.rect, 10 MG RC Q48H, SUPP.RECT 04/19/19 Cyanocobalamin (Vitamin B-12) (Vitamin B-12) 1,000 Mcg Capsule, 1000 MCG PO DAILY, CAP 04/19/19 Atorvastatin Calcium* (Atorvastatin Calcium*) 20 Mg Tablet, 20 MG PO QHS, #30 TAB 04/19/19 Folic Acid/Vitamin B Comp W-C (Renal Multivitamin Tablet) 0.8 Mg Tablet, 0.8 MG PO DAILY, TAB 04/19/19 Aspirin* (Aspirin* EC) 81 Mg Tablet.dr, 81 MG PO DAILY, TAB 04/19/19 Hydrocodone/Acetaminophen (Tenino 5-325 Tablet) 1 Each Tablet, 1 EACH PO Q8H PRN for PAIN LEVEL 5-10/10, TAB 04/19/19 Amlodipine Besylate* (Amlodipine Besylate*) 10 Mg Tablet, 10 MG PO DAILY, #30 TAB HOLD IF SBP<110 OR HR<60 04/19/19 Nitroglycerin* (Nitroglycerin* SL) 0.4 Mg Tab.subl, 0.4 MG SL Q5MIN PRN for CHEST PAIN, BOTTLE 04/19/19 Ipratropium-Albuterol (Ipratropium-Albuterol) 0.5-3 Mg/3 Ml Ampul.neb, 3 ML INHALATION Q2H, #30 VIAL 04/19/19 Valsartan* (Diovan*) 40 Mg Tablet, 40 MG PO Q12H, TAB HOLD IF SBP<110 OR HR<60 04/19/19 Insulin Aspart* (Novolog Insulin Pen*) 100 Unit/Ml Soln, 4 UNIT SC WITH MEALS BEDTIME, EA 04/19/19 Montelukast Sodium* (Singulair*) 10 Mg Tablet, 10 MG PO QHS, #30 TAB 04/19/19 Heparin Sodium,Porcine/Pf (HEPARIN SOD 5,000 UNIT/ 0.5 ML) 5,000 Unit/0.5 Ml Vial, 5000 UNIT IJ Q12H, VIAL 04/19/19 Sennosides* (Senna Lax*) 8.6 Mg Tablet, 2 TAB PO QHS, TAB 04/19/19 Salmeterol Xinaf/Fluticasone* (Advair*) 250-50 Diskus Inhaler, 1 INH INHALATION BID, #1 INHALER 04/19/19 Insulin Glargine* (Lantus*) 100 Unit/Ml Soln, 15 UNIT SC QHS, #1 VIAL 04/19/19 Acetaminophen* (Acetaminophen*) 650 Mg Tablet, 650 MG PO Q6H PRN for MILD PAIN LEVEL 1-3, #30 TAB AND FOR FEVER>100.4 04/19/19 Discontinued Reported Medications Hydrocodone Bit-Acetaminophen (Hydrocodone Bit-APAP) 5-325MG Tablet, 1 TAB PO DAILY for 23 Days 04/04/19 Lorazepam* (Lorazepam*) 0.5 Mg Tablet, 0.5 MG PO DAILY for 15 Days, #45 04/04/19 Hydralazine Hcl* (Hydralazine Hcl*) 25 Mg Tab, 25 MG PO DAILY for 30 Days, #90 04/04/19 Ondansetron Hcl* (Zofran*) 4 Mg Tablet, 4 MG PO Q6H PRN for NAUSEA AND OR VOMITING, TAB 12/09/16 Nitroglycerin* (Nitrostat*) 0.4 Mg Tab.subl, 0.4 MG SL Q5MIN PRN for CHEST PAIN, BOTTLE 12/09/16 Magnesium Oxide* (Mag-Oxide*) 400 Mg Tablet, 400 MG PO BID, TAB FOR 7 DAYS STOP 12-15-16 12/09/16 Clonidine Hcl* (Clonidine Hcl*) 0.1 Mg Tab, 0.1 MG PO Q8 PRN for ELEVATED BLOOD PRESSURE, TAB SBP ABOVE 160 12/09/16 Salmeterol Xinaf/Fluticasone* (Advair*) 250-50 Diskus Inhaler, 1 INH INHALATION BID, #1 INHALER 12/09/16 Acetaminophen* (Acephen*) 650 Mg Supp.rect, 650 MG PA Q4H PRN for PAIN AND OR ELEVATED TEMP, SUPP.RECT 12/09/16 Ascorbic Acid* (Vitamin C*) 500 Mg Capsule.sa, 500 MG PO DAILY, CAP 11/30/16 Sennosides* (Senna Lax*) 8.6 Mg Tablet, 2 TAB PO QHS, TAB 11/30/16 Pantoprazole* (Pantoprazole*) 40 Mg Tablet.dr, 40 MG PO AC BREAKFAST, TAB 11/30/16 Protein Supplement (Promod) 946 Ml Liquid, 30 ML PO BID 11/30/16 Multivitamin with Minerals (Multivitamins with Minerals) 1 Each Tablet, 1 EACH PO DAILY, TAB 11/30/16 Montelukast Sodium* (Montelukast Sodium*) 10 Mg Tablet, 10 MG PO DAILY, #30 TAB 11/30/16 Polyethylene Glycol* (Miralax*) 17 Gm Powd.pack, 17 GM PO DAILY, #30 PACKET 11/30/16 Sod Phosphate/Sod Biphosphate* (Fleet* Enema Pediatric) 66.6 Ml Soln, 66.6 ML PA Q72H PRN for CONSTIPATION, ENEMA 11/30/16 Ferrous Sulfate* (Ferrous Sulfate*) 325 Mg Tabec, 325 MG PO BID, TAB 11/30/16 Enoxaparin Sodium* (Enoxaparin Sodium*) 40 Mg/0.4 Ml Syringe, 40 MG SC DAILY, SYR 11/30/16 Ipratropium-Albuterol (Ipratropium-Albuterol) 0.5-3 Mg/3 Ml Ampul.neb, 3 ML INHALATION Q2H, #30 VIAL Q2H FOR WHEEZING AND Q4H FOR SOB 11/30/16 Bisacodyl* (Bisacodyl*) 10 Mg Supp, 10 MG PA Q48H PRN for PRN, SUPP 11/30/16 Cyanocobalamin* (Vitamin B-12*) 1,000 Mcg Tablet.sa, 1000 MCG PO DAILY, TAB 11/30/16 Aspirin* (Aspirin* Chew) 81 Mg Tab.chew, 81 MG PO DAILY, TAB.CHEW 11/30/16 Amlodipine Besylate* (Amlodipine Besylate*) 10 Mg Tablet, 10 MG PO DAILY, #30 TAB HOLD IF SBP<110 OR HR<60 11/30/16 Alprazolam* (Alprazolam*) 0.25 Mg Tablet, 0.25 MG PO TID PRN for ANXIETY, TAB 11/30/16 Discontinued Scripts Prednisone* (Prednisone*) 5 Mg Tab, 5 MG PO DAILY for 7 Days, TAB Prov:LIZZ SPANGLER M. 12/11/16 Insulin Aspart* (Novolog Insulin Pen*) 100 Unit/Ml Soln, 5 UNIT SC WITH MEALS for 30 Days, EA Prov:LIZZ SPANGLER M. 12/11/16 Levofloxacin* (Levaquin*) 750 Mg Tablet, 750 MG NGT DAILY@06 for 7 Days, TAB Prov:LIZZ SPANGLER M. 12/11/16 Oseltamivir Phosphate* (Tamiflu*) 75 Mg Capsule, 75 MG PO BID for 7 Days, CAP Prov:CRYS,BOLATITO M. 12/11/16 Insulin Aspart* (Novolog Insulin Pen*) 100 Unit/Ml Soln, 0 SC WITH MEALS BEDTIME for 30 Days, EA 151-200 = 2 UNITS 201-250 = 4 UNITS 251-300 = 6 UNITS 301-350 = 8 UNITS 351-400 =10 UNITS ABOVE 400 GIVE 12 UNITS AND CALL MD TO BE GIVEN WITH MEALS AND BEDTIME in addition to scheduled premeal novolog Prov:LIZZ SPANGLER. 12/11/16 Insulin Glargine* (Lantus*) 100 Unit/Ml Soln, 22 UNIT SC QHS for 30 Days, #1 VIAL Prov:LIZZ SPANGLER. 12/11/16 Valsartan* (Diovan*) 80 Mg Tablet, 40 MG PO BID for 30 Days, TAB HOLD IF SBP<110 OR HR<60 Prov:LEXY HOOKER MD 12/06/16 Carvedilol* (Carvedilol*) 25 Mg Tablet, 12.5 MG PO BID, #60 TAB HOLD IF SBP<110 OR HR<60 Prov:LEXY HOOKER MD 12/06/16 Medications Current Medications Ondansetron HCl (Zofran Inj) 4 mg ER BRIDGE PRN IV NAUSEA/VOMITING; Start 04/19/19 at 23:00; Stop 04/20/19 at 22:59 Acetaminophen (Tylenol Tab) 650 mg ER BRIDGE PRN PO .MILD PAIN 1-3 OR TEMP; Start 04/19/19 at 23:00; Stop 04/20/19 at 22:59 IV Flush (NS 3 ml) 3 ml PER PROTOCOL IV ; Start 04/20/19 at 00:00 Ondansetron HCl (Zofran Tab) 4 mg Q6H PRN PO NAUSEA/VOMITING Last administered on 04/20/19at 09:08; Admin Dose 4 MG; Start 04/20/19 at 00:00 Acetaminophen (Tylenol Tab) 650 mg Q6H PRN PO .PAIN 1-3 OR TEMP; Start 04/20/19 at 00:00 Acetaminophen/ Hydrocodone Bitart ([place] (5/325)) 1 tab Q6H PRN PO .PAIN 4-6 Last administered on 04/20/19at 09:08; Admin Dose 1 TAB; Start 04/20/19 at 00:00 Docusate Sodium (Colace) 100 mg Q12H PRN PO .CONSTIPATION; Start 04/20/19 at 00:00 Bisacodyl (Dulcolax) 5 mg DAILY PRN PO .CONSTIPATION; Start 04/20/19 at 00:00 Heparin Sodium (Porcine) (Heparin (5000 Units/1ml)) 5,000 unit Q8 SC Last administered on 04/20/19at 05:54; Admin Dose 5,000 UNIT; Start 04/20/19 at 00:00 Vancomycin HCl (Vanco Iv Per Pharmacy) VANCOMYCIN PER PHARMACY PER PROTOCOL XX ; Start 04/20/19 at 05:00; Stop 04/25/19 at 04:59 Tramadol HCl (Ultram) 50 mg Q6H PRN PO MODERATE PAIN LEVEL 4-6 Last administered on 04/20/19at 05:31; Admin Dose 50 MG; Start 04/20/19 at 05:00 Polyethylene Glycol (Miralax) 17 gm DAILY PO Last administered on 04/20/19at 08:41; Admin Dose 17 GM; Start 04/20/19 at 05:00 Allergies: Coded Allergies: Penicillins (Unverified Allergy, Unknown, 04/19/19) atenolol (Unverified Allergy, Unknown, 04/19/19) prochlorperazine (Unverified Allergy, Unknown, 04/19/19) sulfamethoxazole (Unverified Allergy, Unknown, 04/19/19) trimethoprim (Unverified Allergy, Unknown, 04/19/19) Social History Alcohol Use: none Smoking Status: Never smoker Drug Use: none Exam/Review of Systems Exam Vitals Vital Signs Date Temp Pulse Resp B/P (MAP) Pulse Ox O2 O2 Flow FiO2 Time Delivery Rate 04/20/19 69 12:13 04/20/19 98.7 18 154/72 98 Nasal 11:28 (99) Cannula 04/20/19 2.0 08:00 Exam gen nad cv rrr pulm ctab abd soft, nd, nt +bs ext: b.l legs in casts Results Result Diagram: 04/20/19 0559 04/20/19 0559 Results 24hrs Laboratory Tests Test 04/19/19 15:05 04/19/19 22:26 04/20/19 05:59 Sodium Level 136 139 139 Potassium Level 6.0 H 5.5 H 5.2 H Chloride Level 102 101 104 Carbon Dioxide Level 24 28 26 Anion Gap 10 10 9 Blood Urea Nitrogen 40 H 39 H 41 H Creatinine 2.85 H 3.24 H 3.09 H Est Glomerular Filtrat Rate mL/min 17 L 15 L 16 L Glucose Level 162 174 165 Calcium Level 8.6 9.4 8.6 White Blood Count 6.8 # 7.6 Red Blood Count 3.60 L 3.03 L Hemoglobin 10.5 L 8.9 L Hematocrit 34.6 L 29.5 L Mean Corpuscular Volume 96.1 97.4 Mean Corpuscular Hemoglobin 29.2 29.4 Mean Corpuscular Hemoglobin Concent 30.3 L 30.2 L Red Cell Distribution Width 17.5 H 17.3 H Platelet Count 297 265 Mean Platelet Volume 13.3 H 12.9 H Immature Granulocytes % 1.500 H 1.100 H Neutrophils % 63.2 74.0 Lymphocytes % 26.1 17.1 Monocytes % 6.5 5.3 Eosinophils % 2.1 2.0 Basophils % 0.6 0.5 Nucleated Red Blood Cells % 0.0 0.0 Immature Granulocytes # 0.100 H 0.080 H Neutrophils # 4.3 5.6 Lymphocytes # 1.8 1.3 Monocytes # 0.4 0.4 Eosinophils # 0.1 0.2 Basophils # 0.0 0.0 Nucleated Red Blood Cells # 0.0 0.0 Prothrombin Time 12.5 Prothrombin Time Ratio 1.0 INR International Normalized Ratio 0.92 Activated Partial Thromboplast Time 27.7 Hemoglobin A1c 5.8 Magnesium Level 2.0 Total Bilirubin 0.3 Direct Bilirubin 0.00 Indirect Bilirubin 0.3 Aspartate Amino Transf (AST/SGOT) 17 Alanine Aminotransferase (ALT/SGPT) 11 L Alkaline Phosphatase 163 H Total Protein 6.0 L Albumin 3.2 L Globulin 2.80 Albumin/Globulin Ratio 1.14 Triglycerides Level 252 H Cholesterol Level 71 L LDL Cholesterol, Calculated 3 HDL Cholesterol 18 L Cholesterol/HDL Ratio 3.9 Thyroid Stimulating Hormone (TSH) 2.710 Medications Medication Current Medications Ondansetron HCl (Zofran Inj) 4 mg ER BRIDGE PRN IV NAUSEA/VOMITING; Start 04/19/19 at 23:00; Stop 04/20/19 at 22:59 Acetaminophen (Tylenol Tab) 650 mg ER BRIDGE PRN PO .MILD PAIN 1-3 OR TEMP; Start 04/19/19 at 23:00; Stop 04/20/19 at 22:59 IV Flush (NS 3 ml) 3 ml PER PROTOCOL IV ; Start 04/20/19 at 00:00 Ondansetron HCl (Zofran Tab) 4 mg Q6H PRN PO NAUSEA/VOMITING Last administered on 04/20/19at 09:08; Admin Dose 4 MG; Start 04/20/19 at 00:00 Acetaminophen (Tylenol Tab) 650 mg Q6H PRN PO .PAIN 1-3 OR TEMP; Start 04/20/19 at 00:00 Acetaminophen/ Hydrocodone Bitart ([place] (5/325)) 1 tab Q6H PRN PO .PAIN 4-6 Last administered on 04/20/19at 09:08; Admin Dose 1 TAB; Start 04/20/19 at 00:00 Docusate Sodium (Colace) 100 mg Q12H PRN PO .CONSTIPATION; Start 04/20/19 at 00:00 Bisacodyl (Dulcolax) 5 mg DAILY PRN PO .CONSTIPATION; Start 04/20/19 at 00:00 Heparin Sodium (Porcine) (Heparin (5000 Units/1ml)) 5,000 unit Q8 SC Last administered on 04/20/19 05:54; Admin Dose 5,000 UNIT; Start 04/20/19 at 00:00 Vancomycin HCl (Vanco Iv Per Pharmacy) VANCOMYCIN PER PHARMACY PER PROTOCOL XX ; Start 04/20/19 at 05:00; Stop 04/25/19 at 04:59 Tramadol HCl (Ultram) 50 mg Q6H PRN PO MODERATE PAIN LEVEL 4-6 Last administered on 04/20/19 05:31; Admin Dose 50 MG; Start 04/20/19 at 05:00 Polyethylene Glycol (Miralax) 17 gm DAILY PO Last administered on 04/20/19 08:41; Admin Dose 17 GM; Start 04/20/19 at 05:00 ATIYA CALVIN MD Apr 20, 2019 12:40
[2019-04-21] VITALS (11 sets, daily range): BP systolic 131–172; BP diastolic 60–79; PULSE 59–79; RESP 17–19
[2019-04-21] MEDS: HYDROCODONE/APAP (5/325) TAB PO PRN (06:00)
[2019-04-21] MEDS: HEPARIN 5,000 UNIT/1 ML VIAL SC SCH ×2 (06:05→13:33)
[2019-04-21] MEDS: POLYETHYLENE GLYCOL 17 GM PACKET PO SCH (08:38)
[2019-04-21] MEDS ORDERED: BALSAM PERU/CASTOR OIL 60 GM TUBE TOP SCH (09:00)
[2019-04-21] MEDS ORDERED: NITROGLYCERIN (SL) 0.4 MG TAB SL PRN (11:30)
[2019-04-21] MEDS ORDERED: BISACODYL 10 MG SUPP PR SCH (11:30)
[2019-04-21] MEDS ORDERED: AMLODIPINE 10 MG TAB PO SCH (11:30)
[2019-04-21] MEDS ORDERED: ACETAMINOPHEN 325 MG TAB PO PRN (11:30)
[2019-04-21] MEDS ORDERED: HYDROCODONE/APAP (5/325) TAB PO PRN (11:30)
--- NOTE | 2019-04-21 11:33 | DS ---
Date/Time of Note Date/Time of Note DATE: 04/21/19 TIME: 11:28 Discharge Summary Admission/Discharge Info Admit Date/Time Apr 19, 2019 at 22:33 Discharge Date/Time April 21, 2019 Discharge Diagnosis Malfunction of hemodialysis catheter; end-stage renal disease; horseshoe kidney; acute hyperkalemia; hypertension; asthma COPD overlap syndrome; spina bifida; ambulatory dysfunction; the left femur fracture; proximal right tibia fracture; hyperlipidemia; history gram-positive septicemia due to dialysis catheter at last visit still on antibiotic therapy Patient Condition: Good Consults Nephrology-Dr. Ruthie Cespedes Procedures Non-tunneled dialysis catheter exchange; hemodialysis; IV vancomycin during dialysis 1 g Hx of Present Illness Hx of Present Illness Chief complaint: Dysfunctional Royce catheter This is a 53-year-old female who originally was brought in from the dialysis center for nonfunctioning with an catheter to her left chest. She was seen by radiology and had an exchange of her Royce catheter. She was being ready to be sent back to [facility] at which point it was found that the patient's dialysis center was not open for Saturdays. The decision was then made to admit the patient as it was also noted to be that the patient's blood work did reveal a hyperkalemia of 6. Patient was given Kayexalate in the emergency department. Patient is wheelchair-bound at baseline. She recently was admitted to [facility] after sustaining bilateral lower extremity fractures which were not operated on. She was also found to have bacteremia for which she was placed on vancomycin for duration of 2 weeks which she is still continuing. Hospital Course 53-year-old female with bilateral leg fractures after a fall while transferring. She condition and had dialysis catheter infection and that had been removed. She was receiving outpatient vancomycin. Her catheter clotted and she was unable to be dialyzed. As such she was sent to the hospital to have this exchanged but she missed her dialysis timeframe and therefore had to be kept and receive dialysis due to hyperkalemia and acidosis. She is successfully dialyzed and has new catheter in place and has received her IV antibiotic therapy. As such she is stable to return to her extended care facility, and continue with her outpatient hemodialysis Monday. Home Meds Active Scripts Sodium Polystyrene Sulfonate (Kayexalate) 15 Gm/60 Ml Susp, 15 GM PO DAILY, #1 ML Prov:CHING JASSO DO 04/19/19 Reported Medications Na Phos,M-B/Na Phos,Di-Ba (Fleet Enema Extra) 230 Ml Enema, 118 ML RC Q72H, ENEMA 04/19/19 Sevelamer Carbonate* (Renvela*) 800 Mg Tablet, 0.8 GM PO WITH MEALS, TAB 04/19/19 Famotidine* (Famotidine*) 20 Mg Tablet, 20 MG PO DAILY, #30 TAB 04/19/19 Protein Supplement (Promod) 946 Ml Liquid, 30 ML PO QHS 04/19/19 Clonidine Hcl* (Clonidine Hcl*) 0.1 Mg Tab, 0.1 MG PO Q8H, TAB HOLD IF SBP<110 OR HR<60 04/19/19 Polyethylene Glycol* (Polyethylene Glycol*) 17 Gm Powd.pack, 17 GM PO DAILY, #30 PACKET 04/19/19 Carvedilol* (Carvedilol*) 12.5 Mg Tablet, 12.5 MG PO BID, #60 TAB HOLD IF SBP<110 OR HR<60 04/19/19 Ascorbic Acid (Vitamin C) 500 Mg Tab, 500 MG PO BID, TAB 04/19/19 Bisacodyl (Dulcolax) 10 Mg Supp.rect, 10 MG RC Q48H, SUPP.RECT 04/19/19 Cyanocobalamin (Vitamin B-12) (Vitamin B-12) 1,000 Mcg Capsule, 1000 MCG PO DAILY, CAP 04/19/19 Atorvastatin Calcium* (Atorvastatin Calcium*) 20 Mg Tablet, 20 MG PO QHS, #30 TAB 04/19/19 Folic Acid/Vitamin B Comp W-C (Renal Multivitamin Tablet) 0.8 Mg Tablet, 0.8 MG PO DAILY, TAB 04/19/19 Aspirin* (Aspirin* EC) 81 Mg Tablet.dr, 81 MG PO DAILY, TAB 04/19/19 Hydrocodone/Acetaminophen ([place] 5-325 Tablet) 1 Each Tablet, 1 EACH PO Q8H PRN for PAIN LEVEL 5-10/10, TAB 04/19/19 Amlodipine Besylate* (Amlodipine Besylate*) 10 Mg Tablet, 10 MG PO DAILY, #30 TAB HOLD IF SBP<110 OR HR<60 04/19/19 Nitroglycerin* (Nitroglycerin* SL) 0.4 Mg Tab.subl, 0.4 MG SL Q5MIN PRN for CHEST PAIN, BOTTLE 04/19/19 Ipratropium-Albuterol (Ipratropium-Albuterol) 0.5-3 Mg/3 Ml Ampul.neb, 3 ML INHALATION Q2H, #30 VIAL 04/19/19 Valsartan* (Diovan*) 40 Mg Tablet, 40 MG PO Q12H, TAB HOLD IF SBP<110 OR HR<60 04/19/19 Insulin Aspart* (Novolog Insulin Pen*) 100 Unit/Ml Soln, 4 UNIT SC WITH MEALS BEDTIME, EA 04/19/19 Montelukast Sodium* (Singulair*) 10 Mg Tablet, 10 MG PO QHS, #30 TAB 04/19/19 Heparin Sodium,Porcine/Pf (HEPARIN SOD 5,000 UNIT/ 0.5 ML) 5,000 Unit/0.5 Ml Vial, 5000 UNIT IJ Q12H, VIAL 04/19/19 Sennosides* (Senna Lax*) 8.6 Mg Tablet, 2 TAB PO QHS, TAB 04/19/19 Salmeterol Xinaf/Fluticasone* (Advair*) 250-50 Diskus Inhaler, 1 INH INHALATION BID, #1 INHALER 04/19/19 Insulin Glargine* (Lantus*) 100 Unit/Ml Soln, 15 UNIT SC QHS, #1 VIAL 04/19/19 Acetaminophen* (Acetaminophen*) 650 Mg Tablet, 650 MG PO Q6H PRN for MILD PAIN LEVEL 1-3, #30 TAB AND FOR FEVER>100.4 04/19/19 Discontinued Reported Medications Hydrocodone Bit-Acetaminophen (Hydrocodone Bit-APAP) 5-325MG Tablet, 1 TAB PO DAILY for 23 Days 04/04/19 Lorazepam* (Lorazepam*) 0.5 Mg Tablet, 0.5 MG PO DAILY for 15 Days, #45 04/04/19 Hydralazine Hcl* (Hydralazine Hcl*) 25 Mg Tab, 25 MG PO DAILY for 30 Days, #90 04/04/19 Ondansetron Hcl* (Zofran*) 4 Mg Tablet, 4 MG PO Q6H PRN for NAUSEA AND OR VOMITING, TAB 2/3/17 Nitroglycerin* (Nitrostat*) 0.4 Mg Tab.subl, 0.4 MG SL Q5MIN PRN for CHEST PAIN, BOTTLE 12/09/16 Magnesium Oxide* (Mag-Oxide*) 400 Mg Tablet, 400 MG PO BID, TAB FOR 7 DAYS STOP 2--12/09/16 Clonidine Hcl* (Clonidine Hcl*) 0.1 Mg Tab, 0.1 MG PO Q8 PRN for ELEVATED BLOOD PRESSURE, TAB SBP ABOVE 160 12/09/16 Salmeterol Xinaf/Fluticasone* (Advair*) 250-50 Diskus Inhaler, 1 INH INHALATION BID, #1 INHALER 12/09/16 Acetaminophen* (Acephen*) 650 Mg Supp.rect, 650 MG NV Q4H PRN for PAIN AND OR ELEVATED TEMP, SUPP.RECT 12/09/16 Ascorbic Acid* (Vitamin C*) 500 Mg Capsule.sa, 500 MG PO DAILY, CAP 11/30/16 Sennosides* (Senna Lax*) 8.6 Mg Tablet, 2 TAB PO QHS, TAB 11/30/16 Pantoprazole* (Pantoprazole*) 40 Mg Tablet.dr, 40 MG PO AC BREAKFAST, TAB 11/30/16 Protein Supplement (Promod) 946 Ml Liquid, 30 ML PO BID 11/30/16 Multivitamin with Minerals (Multivitamins with Minerals) 1 Each Tablet, 1 EACH PO DAILY, TAB 11/30/16 Montelukast Sodium* (Montelukast Sodium*) 10 Mg Tablet, 10 MG PO DAILY, #30 TAB 11/30/16 Polyethylene Glycol* (Miralax*) 17 Gm Powd.pack, 17 GM PO DAILY, #30 PACKET 11/30/16 Sod Phosphate/Sod Biphosphate* (Fleet* Enema Pediatric) 66.6 Ml Soln, 66.6 ML NV Q72H PRN for CONSTIPATION, ENEMA 11/30/16 Ferrous Sulfate* (Ferrous Sulfate*) 325 Mg Tabec, 325 MG PO BID, TAB 11/30/16 Enoxaparin Sodium* (Enoxaparin Sodium*) 40 Mg/0.4 Ml Syringe, 40 MG SC DAILY, SYR 11/30/16 Ipratropium-Albuterol (Ipratropium-Albuterol) 0.5-3 Mg/3 Ml Ampul.neb, 3 ML INHALATION Q2H, #30 VIAL Q2H FOR WHEEZING AND Q4H FOR SOB 11/30/16 Bisacodyl* (Bisacodyl*) 10 Mg Supp, 10 MG NV Q48H PRN for PRN, SUPP 11/30/16 Cyanocobalamin* (Vitamin B-12*) 1,000 Mcg Tablet.sa, 1000 MCG PO DAILY, TAB 11/30/16 Aspirin* (Aspirin* Chew) 81 Mg Tab.chew, 81 MG PO DAILY, TAB.CHEW 11/30/16 Amlodipine Besylate* (Amlodipine Besylate*) 10 Mg Tablet, 10 MG PO DAILY, #30 TAB HOLD IF SBP<110 OR HR<60 11/30/16 Alprazolam* (Alprazolam*) 0.25 Mg Tablet, 0.25 MG PO TID PRN for ANXIETY, TAB 11/30/16 Discontinued Scripts Prednisone* (Prednisone*) 5 Mg Tab, 5 MG PO DAILY for 7 Days, TAB Prov:LIZZ SPANGLER . 12/11/16 Insulin Aspart* (Novolog Insulin Pen*) 100 Unit/Ml Soln, 5 UNIT SC WITH MEALS for 30 Days, EA Prov:LIZZ SPANGLER . 12/11/16 Levofloxacin* (Levaquin*) 750 Mg Tablet, 750 MG NGT DAILY@06 for 7 Days, TAB Prov:LIZZ SPANGLER . 12/11/16 Oseltamivir Phosphate* (Tamiflu*) 75 Mg Capsule, 75 MG PO BID for 7 Days, CAP Prov:CRYSLIZZ . 12/11/16 Insulin Aspart* (Novolog Insulin Pen*) 100 Unit/Ml Soln, 0 SC WITH MEALS BEDTIME for 30 Days, EA 151-200 = 2 UNITS 201-250 = 4 UNITS 251-300 = 6 UNITS 301-350 = 8 UNITS 351-400 =10 UNITS ABOVE 400 GIVE 12 UNITS AND CALL MD TO BE GIVEN WITH MEALS AND BEDTIME in addition to scheduled premeal novolog Prov:LIZZ SPANGLER. 12/11/16 Insulin Glargine* (Lantus*) 100 Unit/Ml Soln, 22 UNIT SC QHS for 30 Days, #1 VIAL Prov:LIZZ SPANGLER . 12/11/16 Valsartan* (Diovan*) 80 Mg Tablet, 40 MG PO BID for 30 Days, TAB HOLD IF SBP<110 OR HR<60 Prov:LEXY HOOKER MD 12/06/16 Carvedilol* (Carvedilol*) 25 Mg Tablet, 12.5 MG PO BID, #60 TAB HOLD IF SBP<110 OR HR<60 Prov:LEXY HOOKER MD 12/06/16 Primary Care Provider Not On Staff Doctor Copies To: CC: GEMMA ATKINSON DO ; BLAS GTZ MD Apr 21, 2019 11:33
--- NOTE | 2019-04-21 11:34 | PDOCDIS ---
Discharge Instructions DIAGNOSIS Discharge Diagnosis Malfunction of hemodialysis catheter; end-stage renal disease; horseshoe kidney; acute hyperkalemia; hypertension; asthma COPD overlap syndrome; spina bifida; ambulatory dysfunction; the left femur fracture; proximal right tibia fracture; hyperlipidemia; history gram-positive septicemia due to dialysis catheter at last visit still on antibiotic therapy CONDITION [id number] Patient Condition: [id number] Fair HOME CARE INSTRUCTIONS: [id number] Special Diet: [id number] Renal failure diet ACTIVITY: [id number] Activity Restrictions: [id number] Slowly Increase Activity Do not Drive FOLLOW UP/APPOINTMENTS Follow-up Plan Continue with hemodialysis and transfer to extended care facility for ongoing rehab for the bilateral leg fractures BLAS GTZ MD Apr 21, 2019 11:34
[2019-04-21] MEDS: SEVELAMER CARBONATE 0.8 GM PKT PO SCH ×2 (11:54→17:37)
--- NOTE | 2019-04-21 12:56 | CONS ---
Assessment/Plan Assessment/Plan Hospital Course (Demo Recall) 1. esrd: chronic HD schedule MWF - changed malfunctioning HD catheter - s/p HD yesterday - routine access care 2. hyperkalemia: - s/p HD with low k bath 3. anemia: - epogen as needed with HD 4. Bone Mineral Disease: - monitor ca and phos 5. recent MRSA bacteremia: - cont vancomycin iv 6. b.l multiple leg fractures: - nonsurigcal managamenet - splinting - f/u with ortho as outpt 7. spina bifida: - chronic 8. DM: - cont ssi 9. HTN: - cont current meds and titrate as needed agree with discharge. pt may follow up at her hd center for her next HD on monday Consultation Date/Type/Reason Admit Date/Time Apr 19, 2019 at 22:33 Initial Consult Date Date/Time of Note DATE: 04/21/19 TIME: 12:55 24 HR Interval Summary Free Text/Dictation s/p HD yesterday denies shortness of breath or n./v d/w rn gen nad cv rrr pulm ctab abd soft, nd, nt +bs ext: no edema Exam/Review of Systems Exam Vitals Vital Signs Date Temp Pulse Resp B/P (MAP) Pulse Ox O2 O2 Flow FiO2 Time Delivery Rate 04/21/19 73 12:00 04/21/19 98.0 17 164/78 97 11:26 (106) 04/21/19 Nasal 2.0 08:05 Cannula Intake and Output 04/20/19 04/20/19 04/21/19 1515:00 23:00 07:00 IntakeIntake Total 1000 ml 700 ml OutputOutput Total 5700 ml 3 ml BalanceBalance -4700 ml 697 ml Results Result Diagram: 04/20/19 0559 04/20/19 0559 Medications Medication Current Medications IV Flush (NS 3 ml) 3 ml PER PROTOCOL IV ; Start 04/20/19 at 00:00 Ondansetron HCl (Zofran Tab) 4 mg Q6H PRN PO NAUSEA/VOMITING Last administered on 04/20/19at 09:08; Admin Dose 4 MG; Start 04/20/19 at 00:00 Acetaminophen (Tylenol Tab) 650 mg Q6H PRN PO .PAIN 1-3 OR TEMP; Start 04/20/19 at 00:00 Docusate Sodium (Colace) 100 mg Q12H PRN PO .CONSTIPATION; Start 04/20/19 at 00:00 Bisacodyl (Dulcolax) 5 mg DAILY PRN PO .CONSTIPATION; Start 04/20/19 at 00:00 Heparin Sodium (Porcine) (Heparin (5000 Units/1ml)) 5,000 unit Q8 SC Last administered on 04/21/19at 06:05; Admin Dose 5,000 UNIT; Start 04/20/19 at 00:00 Vancomycin HCl (Vanco Iv Per Pharmacy) VANCOMYCIN PER PHARMACY PER PROTOCOL XX ; Start 04/20/19 at 05:00; Stop 04/25/19 at 04:59 Tramadol HCl (Ultram) 50 mg Q6H PRN PO MODERATE PAIN LEVEL 4-6 Last administered on 04/20/19at 05:31; Admin Dose 50 MG; Start 04/20/19 at 05:00 Acetaminophen (Tylenol Tab) 650 mg Q6H PRN PO MILD PAIN LEVEL 1-3; Start 04/21/19 at 11:30 Amlodipine Besylate (Norvasc) 10 mg DAILY PO Last administered on 04/21/19at 11:55; Admin Dose 10 MG; Start 04/21/19 at 11:30 Ascorbic Acid (Vitamin C) 500 mg BID PO ; Start 04/21/19 at 21:00 Aspirin (Halfprin) 81 mg DAILY PO ; Start 04/22/19 at 09:00 Atorvastatin Calcium (Lipitor) 20 mg QHS PO ; Start 04/21/19 at 21:00 Bisacodyl (Dulcolax Supp) 10 mg Q48H RI Last administered on 04/21/19at 11:55; Admin Dose 10 MG; Start 04/21/19 at 11:30 Carvedilol (Coreg) 12.5 mg BID PO Last administered on 04/21/19at 11:55; Admin Dose 12.5 MG; Start 04/21/19 at 11:30 Clonidine (Catapres) 0.1 mg Q8H PO Last administered on 04/21/19at 11:54; Admin Dose 0.1 MG; Start 04/21/19 at 11:30 Famotidine (Pepcid) 20 mg DAILY PO ; Start 04/22/19 at 09:00 Multivit/Ca Carb/ B Cmplx/FA/Prenat (Radha-[place]ille) 1 tab DAILY PO ; Start 04/22/19 at 09:00 Acetaminophen/ Hydrocodone Bitart ([place] (5/325)) 1 tab Q8H PRN PO PAIN LEVEL 5-10/10; Start 04/21/19 at 11:30 Montelukast Sodium (Singulair) 10 mg QHS PO ; Start 04/21/19 at 21:00 Nitroglycerin (Nitroglycerin (Sl Tab) 0.4 Mg) 1 tab [id number] PRN SL CHEST PAIN; Start 04/21/19 at 11:30 Polyethylene Glycol (Miralax) 17 gm DAILY PO ; Start 04/22/19 at 09:00 Senna (Senokot) 2 tab QHS PO ; Start 04/21/19 at 21:00 Sevelamer Carbonate (Renvela) 0.8 gm WITH MEALS PO Last administered on 04/21/19at 11:54; Admin Dose 0.8 GM; Start 04/21/19 at 11:50 Cyanocobalamin (Vitamin B12) 1,000 mcg DAILY PO ; Start 04/22/19 at 09:00 Fluticasone/ Vilanterol (Breo Ellipta 100-25 Mcg Inh) 1 inh DAILY INH ; Start 04/21/19 at 14:00 Losartan Potassium (Cozaar) 25 mg BID PO ; Start 04/21/19 at 21:00 Miscellaneous Information (*Rx Drug Level Order Reminder*) RANDOM VANCOMYCIN LEVEL 6... 0500 ONCE XX ; Start 04/22/19 at 05:00; Stop 04/22/19 at 05:01 ATIYA CALVIN MD Apr 21, 2019 12:56
[2019-04-21] MEDS ORDERED: FLUTICASONE/VILANTEROL 100-25 INH SCH (14:00)
[2019-04-21] MEDS ORDERED: NON-FORMULARY/PATIENT OWN MED (Protein Supplement (Promod) 30 ML) PO SCH (21:00)
[2019-04-21] MEDS ORDERED: MONTELUKAST 10 MG TAB PO SCH (21:00)
[2019-04-21] MEDS ORDERED: SENNA TAB PO SCH (21:00)
[2019-04-21] MEDS ORDERED: ATORVASTATIN 20 MG TAB PO SCH (21:00)
[2019-04-21] MEDS ORDERED: LOSARTAN 25 MG TAB PO SCH (21:00)
[2019-04-21] MEDS ORDERED: ASCORBIC ACID 500 MG TAB PO SCH (21:00)
[2019-04-22] MEDS ORDERED: MULTIVIT/CA CARB/B CMPLX/FA TAB PO SCH (09:00)
[2019-04-22] MEDS ORDERED: POLYETHYLENE GLYCOL 17 GM PACKET PO SCH (09:00)
[2019-04-22] MEDS ORDERED: ASPIRIN (EC) 81 MG TAB PO SCH (09:00)
[2019-04-22] MEDS ORDERED: FAMOTIDINE 20 MG TAB PO SCH (09:00)
[2019-04-22] MEDS ORDERED: CYANOCOBALAMIN 500 MCG TAB PO SCH (09:00)
[2019-04-22] MEDS ORDERED: NA POLYST SULFON 15 GM/60 ML BTL PO SCH (09:00)
== END 2019-04-21 18:13 ==
LOC: E/R 14:51 → TEL 22:33
PROVIDERS: ADMIT Family Medicine; ATTEND Family Medicine
DX: T82.41XA Breakdown (mechanical) of vascular dialysis catheter, initial encounter (principal); I12.0 Hypertensive chronic kidney disease with stage 5 chronic kidney disease or end stage renal disease; E11.22 Type 2 diabetes mellitus with diabetic chronic kidney disease; N18.6 End stage renal disease; Z99.2 Dependence on renal dialysis; Q63.1 Lobulated, fused and horseshoe kidney; J45.909 Unspecified asthma, uncomplicated; J44.9 Chronic obstructive pulmonary disease, unspecified; E78.5 Hyperlipidemia, unspecified; R78.81 Bacteremia; B95.62 Methicillin resistant Staphylococcus aureus infection as the cause of diseases classified elsewhere; Q05.9 Spina bifida, unspecified; Z99.3 Dependence on wheelchair; J84.10 Pulmonary fibrosis, unspecified; M89.8X9 Other specified disorders of bone, unspecified site; S72.402D Unspecified fracture of lower end of left femur, subsequent encounter for closed fracture with routine healing; S82.101D Unspecified fracture of upper end of right tibia, subsequent encounter for closed fracture with routine healing; W19.XXXD Unspecified fall, subsequent encounter; Y84.1 Kidney dialysis as the cause of abnormal reaction of the patient, or of later complication, without mention of misadventure at the time of the procedure
CPT/HCPCS: 36556; 71045; 80048; 80053; 80061; 83036; 83735; 84443; 85025; 85610; 85730; 87040; 90935; 93005; 94664; C1752; G0378; J1644; J3370; J2250; J3010